=== PATIENT | female | born 1990 | race Caucasian/White ===

== ENCOUNTER 2018-03-09 11:40 | Emergency (ER) | payer MEDICAID, OTHER ==
[~2018-03-09] VITALS: Ht 180.3 cm; Wt 113.4 kg
[2018-03-09] MEDS ORDERED: PREN1.4T2 PO (12:01)
--- NOTE | 2018-03-09 12:21 | ED GU-Female ---
General Chief Complaint: -Female Stated Complaint: LOWER LEFT SIDE PAIN 11 WKS PREG Nursing Triage Note: Pt reports low/pelvic pain since last night. Pt denies urinary s/s. PT denies vaginal bleeding/spotting or abnormal discharge. PT is aprox 11 weeks preg. Nursing Sepsis Screen: No Definite Risk Source: patient, family Exam Limitations: no limitations History of Present Illness Date Seen by Provider: Mar 09, 2018 Time Seen by Provider: 12:14 Initial Comments Patient is a 27-year-old female who presents to the emergency room with complaints left lower abdominal pain/pelvic pain that started last night. She reports taking Tylenol and going to sleep but when she woke this morning the pain returned. She denies vaginal bleeding, spotting, discharge, urinary symptoms, and nausea and vomiting. She states that she is 11 weeks , she saw Dr. Fortune last week for a ten-week appointment. She says that she does have ovarian cyst. Timing/Duration: yesterday Severity/Quality: moderate Location: LLQ, suprapubic Radiation: none Associated Symptoms: abdominal pain; No loss of bladder control, No polyuria, No urinary frequency Allergies and Home Medications Allergies Coded Allergies: acetaminophen (Verified Allergy, Unknown, 03/09/18) diphenhydramine (Verified Allergy, Unknown, 03/09/18) hydrocodone (Verified Allergy, Unknown, 03/09/18) Patient Home Medication List Home Medication List Reviewed: Yes Review of Systems Constitutional: see HPI; No chills, No diaphoresis, No fever EENTM: see HPI; No ear discharge, No hearing loss, No ear pain Respiratory: see HPI; No cough, No dyspnea on exertion, No hemoptysis Cardiovascular: see HPI; No chest pain, No edema Gastrointestinal: see HPI, abdominal pain; No nausea, No vomiting Genitourinary: see HPI; denies burning, denies discharge, denies dysuria; flank pain (left flank); denies incontinence, denies pain, denies urgency Musculoskeletal: see HPI; No back pain, No gout, No joint pain Skin: see HPI; No change in color, No change in hair/nails Psychiatric/Neurological: See HPI; Denies Anxiety, Denies Depressed Endocrine: See HPI; Denies Excessive Sweating, Denies Flushing Hematologic/Lymphatic: Denies Anemia, Denies Blood Clots All Other Systemes Reviewed Negative Unless Noted: Yes Past Uxffhwl-Jmekyt-Unyhnd Hx Past Med/Social Hx: Reviewed Nursing Past Med/Soc Hx Patient Social History Alcohol Use: Denies Use Recreational Drug Use: No Smoking Status: Current Everyday Smoker Type Used: Cigarettes Recent Foreign Travel: No Contact w/Someone Who Travel: No Recent Infectious Disease Expo: No Recent Hopitalizations: No Physical Abuse: No Sexual Abuse: No Mistreated: No Fear: No Seasonal Allergies Seasonal Allergies: No Past Medical History Surgeries: Yes Section Respiratory: Yes Asthma Cardiac: No Neurological: No Genitourinary: No Gastrointestinal: No Musculoskeletal: No Endocrine: No HEENT: No Cancer: No Psychosocial: No Nursing Suicide Risk Score: 0 Integumentary: No Blood Disorders: No Family Medical History Reviewed Nursing Family Hx Physical Exam Vital Signs Vital Signs - First Documented 03/09/18 11:51 Temp 98.9 Pulse 81 Resp 20 B/P (MAP) 126/74 (91) Pulse Ox 98 Capillary Refill : Less Than 3 Seconds Height, Weight, BMI Height: 5'11.00" Weight: 250lbs. oz. 113.686867dm; BMI Method:Stated General Appearance: WD/WN, no apparent distress HEENT: PERRL/EOMI, normal ENT inspection, TMs normal, pharynx normal Neck: non-tender, full range of motion, supple, normal inspection Cardiovascular: regular rate, rhythm, no edema, no gallop, no JVD, no murmur Respiratory: chest non-tender, lungs clear, normal breath sounds, no respiratory distress, no accessory muscle use Gastrointestinal: normal bowel sounds, non tender, soft, no organomegaly, no pulsatile mass Back: normal inspection, no CVA tenderness, no vertebral tenderness Extremities: normal range of motion, non-tender, normal inspection, no pedal edema, no calf tenderness Neurologic/Psychiatric: alert, normal mood/affect, oriented x 3 Skin: normal color, warm/dry Lymphatic: no adenopathy Progress/Results/Core Measures Suspected Sepsis Recent Fever Within 48 Hours: No Infection Criteria Present: None New/Unexplained Altered Menta: No Sepsis Screen: No Definite Risk SIRS Temperature:98.9 Pulse: 81 Respiratory Rate: 20 Blood Pressure 126 /74 Mean: 91 Results/Orders Lab Results My Orders Vital Signs/I&O Capillary Refill : Less Than 3 Seconds Blood Pressure Mean: 91 Diagnostic Imaging Diagonstic Imaging: Ultrasound Comments NAME: TRUDY DOOLEY [facility] REC#: [id number] PT STATUS: REG ER : 1990 PHYSICIAN: SAMUEL TAVAREZ ADMIT DATE: 03/09/18/ER Draft Date of Exam:03/09/18 US OB SINGLE FETUS<14 [id number] PROCEDURE: US OB SINGLE FETUS <14 WKS. TECHNIQUE: Multiple real-time grayscale images were obtained over the gravid uterus in various projections. INDICATION: Pelvic pain. COMPARISON: None available. FINDINGS: The uterus has a gestational sac present which has a normal shape and appearance. An embryo is present with a crown-rump length of 3.7 cm, which corresponds to a gestational age of 10 weeks and 5 days. heart beat is identified at a rate of 169 beats per minute. Left ovary is physiologic in its appearance with a small anechoic follicle measuring 1.7 x 2.1 x 2.1 cm. The right ovary is not seen with certainty. IMPRESSION: 1. Single live intrauterine with a heart rate of 169 beats per minute. 2. No ectopic . Dictated on workstation # [id number] Dict: 03/09/18 1331 Trans: 03/09/18 1345 [id number] Interpreted by: DANY YOUNG MD Electronically signed by: Reviewed: Reviewed by Me Departure Impression Primary Impression: Abdominal pain during in first trimester Disposition: 01 HOME, SELF-CARE Condition: Stable/Unchanged Departure-Patient Inst. Decision time for Depature: 13:35 Referrals: NO,LOCAL PHYSICIAN (PCP) Primary Care Physician SIA FORTUNE DO Patient Instructions: - The Third Month, Smoking and Add. Discharge Instructions: Follow up with Dr. Fortune within 1 week for recheck. Call today for appointment time. Return back to the emergency room for any increased pain, spotting, discharge, vaginal bleeding, fevers, or any other concerns as needed. You may use Tylenol as directed by the bottle. I advised you to stop smoking. All discharge instructions reviewed with patient and/or family. Voiced understanding. Copy Copies To 1: SIA FORTUNE TRAVIS Mar 09, 2018 12:21
[2018-03-09 12:35] LABS: BASOPHILS % (AUTO) 0 % (0-10); EOSINOPHILS # (AUTO) 0.1 10^3/uL (0.0-0.3); EOSINOPHILS % (AUTO) 1 % (0-10); HEMATOCRIT 39 % (35-52); HEMOGLOBIN 13.2 G/DL (11.5-16.0); LYMPHOCYTES # (AUTO) 3.3 X 10^3 (1.0-4.0); LYMPHOCYTES % (AUTO) 35 % (12-44); MEAN CORPUSCULAR HGB CONC 34 G/DL (32-36); MEAN CORPUSCULAR VOLUME 89 FL (80-99); MEAN PLATELET VOLUME 8.9 FL (7.4-10.4); MONOCYTES # (AUTO) 0.8 X 10^3 (0.0-1.0); MONOCYTES % (AUTO) 9 % (0-12); NEUTROPHILS # (AUTO) 5.3 X 10^3 (1.8-7.8); NEUTROPHILS % (AUTO) 55 % (42-75); PLATELET COUNT 292 10^3/uL (130-400); RED BLOOD COUNT 4.33 10^6/uL (4.35-5.85); RED CELL DISTRIBUTION WIDTH 15.7 % (10.0-14.5); WHITE BLOOD COUNT 9.5 10^3/uL (4.3-11.0)
[2018-03-09 12:37] LABS: MEAN CORPUSCULAR HEMOGLOBIN 30 PG (25-34)
[2018-03-09 12:38] LABS: BILIRUBIN,URINE NEGATIVE (NEGATIVE); CLARITY,URINE CLEAR; COLOR,URINE AMBER; GLUCOSE, URINE (UA) NEGATIVE (NEGATIVE); KETONES,URINE NEGATIVE (NEGATIVE); LEUKOCYTE ESTERASE ,URINE 2+ (NEGATIVE); NITRITE,URINE NEGATIVE (NEGATIVE); PH,URINE 6 (5-9); PROTEIN,URINE NEGATIVE (NEGATIVE); UROBILINOGEN,URINE NORMAL (NORMAL)
[2018-03-09 12:45] LABS: BACTERIA,URINE TRACE /HPF; WBC,URINE RARE /HPF
[2018-03-09 12:55] LABS: ALANINE AMINOTRANSFERASE 8 U/L (0-55); ALKALINE PHOSPHATASE 77 U/L (40-136); BILIRUBIN,TOTAL 0.2 MG/DL (0.1-1.0); BUN/CREATININE RATIO 10; CALCIUM 9.3 MG/DL (8.5-10.1); CARBON DIOXIDE 24 MMOL/L (21-32); CHLORIDE 107 MMOL/L (98-107); CREATININE SERUM 0.61 MG/DL (0.60-1.30); GFR ESTIMATED > 60; GLUCOSE 84 MG/DL (70-105); POTASSIUM 3.8 MMOL/L (3.6-5.0); SODIUM 136 MMOL/L (135-145); TOTAL PROTEIN 7.3 GM/DL (6.4-8.2)
--- NOTE | 2018-03-09 13:45 | Diagnostic Imaging Report ---
PROCEDURE: US OB SINGLE FETUS <14 WKS. TECHNIQUE: Multiple real-time grayscale images were obtained over the gravid uterus in various projections. INDICATION: Pelvic pain. COMPARISON: None available. FINDINGS: The uterus has a gestational sac present which has a normal shape and appearance. An embryo is present with a crown-rump length of 3.7 cm, which corresponds to a gestational age of 10 weeks and 5 days. heart beat is identified at a rate of 169 beats per minute. Left ovary is physiologic in its appearance with a small anechoic follicle measuring 1.7 x 2.1 x 2.1 cm. The right ovary is not seen with certainty. IMPRESSION: 1. Single live intrauterine with a heart rate of 169 beats per minute. 2. No ectopic . Dictated by: Dictated on workstation # [id number]
[2018-03-09 13:59] VITALS: BP 124/89
== END 2018-03-09 13:59 | disposition home or self-care (01) ==
LOC: EDUNIT# 11:40 → ER 11:44
DX: O99.89 Other specified diseases and conditions complicating pregnancy, childbirth and the puerperium (principal); R10.32 Left lower quadrant pain; F17.210 Nicotine dependence, cigarettes, uncomplicated; J45.909 Unspecified asthma, uncomplicated; Z88.5 Allergy status to narcotic agent; Z87.59 Personal history of other complications of pregnancy, childbirth and the puerperium; Z3A.11 11 weeks gestation of pregnancy
CPT/HCPCS: 36415; 76801; 80053; 81000; 85025

== ENCOUNTER 2018-04-26 19:38 | Emergency (ER) | payer MEDICAID ==
[~2018-04-26] VITALS: Ht 180.3 cm; Wt 116.1 kg
[~2018-04-26 19:38] MED LIST: PREN1.4T2 PO
--- OUTSIDE RECORDS SUMMARY | 2018-04-26 19:43 | XMS REPORT ---
Author Author TOMMY POLO [facility] Address [address] [place] [address] Care Team Providers Care Environmental Adviser Name Role Phone POLO SANDERS Unavailable PROBLEMS Type Condition ICD9-CM Code MXJ05-DR Code Onset Dates Condition Status SNOMED Code Problem Moderate persistent asthma without complication J45.40 Active 159578434 ALLERGIES Substance Reaction Event Type Date Status [place] headache Drug Allergy Feb, Active Benadryl Allergy hives Drug Allergy Feb, Active ENCOUNTERS Encounter Location Date Diagnosis [place] [id number] [address] Feb, [place] [address] [place] [id number] [place] [address] Feb, [place] [address] [place] [id number] [place] [address] Feb, First trimester Z33.1 ; Normal in multigravida Z34.80 ; 8 weeks gestation of Z3A.08 ; Previous section Z98.891 and Moderate persistent asthma without complication J45.40 [place] [address] [place] [address] Jan, [place] [address] [place] [address] Jan, Encounter for test, result unknown Z32.00 IMMUNIZATIONS No Known Immunizations SOCIAL HISTORY Never Assessed REASON FOR VISIT OB-intake, c/o of headaches that last 2 days Jennifer GOMEZ pt has concerns about previous she would like to discuss PLAN OF CARE Activity Details Follow Up 4W, 4 Weeks Reason: Pending Test PAP REFLEX TO HPV IF ASCUS VITAL SIGNS Weight 262.3 lbs 2018-02-22 Temperature 97.4 degrees Fahrenheit 2018-02-22 Heart Rate 72 bpm 2018-02-22 Respiratory Rate 16 2018-02-22 Blood pressure systolic 118 mmHg 2018-02-22 Blood pressure diastolic 76 mmHg 2018-02-22 MEDICATIONS Medication Instructions Dosage Frequency Start Date End Date Duration Status ProAir HFA 108 (90 Base) MCG/ACT Inhalation every 6 hrs 2 puffs as needed 6h Active Pulmicort Flexhaler 180 MCG/ACT Inhalation Twice a day 1 puff 12h Feb, Active 28-0.8 MG Orally Once a day 1 tablet 24h Active RESULTS No Results PROCEDURES Procedure Date Ordered Result Body Site SPECIMEN HANDLING February 22, 2018 BLOOD TYPING, ABO February 22, 2018 COMPLETE CBC W/AUTO DIFF WBC February 22, 2018 TRICHOMONAS ASSAY W/OPTIC February 22, 2018 No Charge February 22, 2018 BLOOD TYPING, RH (D) February 22, 2018 RBC ANTIBODY SCREEN February 22, 2018 CULTURE, BACTERIA, OTHER February 22, 2018 ASSAY THYROID STIM HORMONE February 22, 2018 URINALYSIS, AUTO, W/O SCOPE February 22, 2018 RUBELLA ANTIBODY February 22, 2018 VENIPUNCT, ROUTINE* February 22, 2018 URINE CULTURE/COLONY COUNT February 22, 2018 INSTRUCTIONS MEDICATIONS ADMINISTERED No Known Medications MEDICAL (GENERAL) HISTORY Type Description Date Medical History /premature high risk Medical History Asthma Medical History Allergies Surgical History 03/03/2015 Hospitalization History see above surgery 2014
--- OUTSIDE RECORDS SUMMARY | 2018-04-26 19:43 | XMS REPORT ---
Author Author GERALDINE SHEEHAN Organization [facility] Address [address] [place] [address] Care Team Providers Care Rn Progressive Care Unit Name Role Phone GERALDINE SHEEHAN Unavailable PROBLEMS Type Condition ICD9-CM Code IZP23-SB Code Onset Dates Condition Status SNOMED Code Problem Moderate persistent asthma without complication J45.40 Active 463207646 ALLERGIES Substance Reaction Event Type Date Status [place] headache Drug Allergy Jan, Active Benadryl Allergy hives Drug Allergy Jan, Active ENCOUNTERS Encounter Location Date Diagnosis [place] [address] [address] Feb, [place] [address] [place] [address] Feb, [place] [address] [address] Feb, First trimester Z33.1 ; Normal in multigravida Z34.80 ; 8 weeks gestation of Z3A.08 ; Previous section Z98.891 and Moderate persistent asthma without complication J45.40 [place] [address] [place] [id number] [address] Jan, [place] [address] [address] Jan, Encounter for test, result unknown Z32.00 IMMUNIZATIONS No Known Immunizations SOCIAL HISTORY Never Assessed REASON FOR VISIT ob/hx PLAN OF CARE VITAL SIGNS MEDICATIONS Unknown Medications RESULTS No Results PROCEDURES No Known procedures INSTRUCTIONS MEDICATIONS ADMINISTERED No Known Medications MEDICAL (GENERAL) HISTORY Type Description Date Medical History /premature high risk Medical History Asthma Medical History Allergies Surgical History 03/03/2015 Hospitalization History see above surgery 2014
--- OUTSIDE RECORDS SUMMARY | 2018-04-26 19:43 | XMS REPORT ---
Author Author GERALDINE SHEEHAN Organization [facility] Address [address] [place] [address] Care Team Providers Care Machine Greaser Name Role Phone GERALDINE SHEEHAN Unavailable PROBLEMS Type Condition ICD9-CM Code PYZ15-NJ Code Onset Dates Condition Status SNOMED Code Problem Moderate persistent asthma without complication J45.40 Active 476461565 ALLERGIES No Information ENCOUNTERS Encounter Location Date Diagnosis [address] [place] [address] Feb, [place] [address] [place] [id number] [place] [address] Feb, [place] [id number] [place] [address] Feb, First trimester Z33.1 ; Normal in multigravida Z34.80 ; 8 weeks gestation of Z3A.08 ; Previous section Z98.891 and Moderate persistent asthma without complication J45.40 [place] [address] [place] [address] Jan, [place] [id number] [place] [phone] Jan, Encounter for test, result unknown Z32.00 IMMUNIZATIONS No Known Immunizations SOCIAL HISTORY Never Assessed REASON FOR VISIT test (walk-in) PLAN OF CARE VITAL SIGNS MEDICATIONS Unknown Medications RESULTS Name Result Date Reference Range TEST, URINE (IN HOUSE) 2018-02-11 RESULTS Positive Lot # [id number] Control + Exp date 09/2018 PROCEDURES Procedure Date Ordered Result Body Site URINE TEST February 11, 2018 INSTRUCTIONS MEDICATIONS ADMINISTERED No Known Medications MEDICAL (GENERAL) HISTORY Type Description Date Medical History /premature high risk Medical History Asthma Medical History Allergies Surgical History 03/03/2015 Hospitalization History see above surgery 2015
--- NOTE | 2018-04-26 20:51 | ED GU-Female ---
General Chief Complaint: -Female Stated Complaint: PEEING BLOOD, 17W Nursing Triage Note: Pt ambulated to rm 3 w/o difficulty. Pt states she was seen at clinic in [place] yesterday and was diagnosed with a UTI. Pt is on Augmentin 500 mg and has taken two doses. Pt states she has had bright red urine three times today. Pt denies pelvic or dysuria today. Pt is 17 weeks . Nursing Sepsis Screen: No Definite Risk Source: patient Exam Limitations: no limitations History of Present Illness Date Seen by Provider: Apr 26, 2018 Time Seen by Provider: 20:30 Initial Comments PT STATES SHE IS 17 WEEKS --LMP 12/23/17 PT STATES SHE OVERDID IT ON THURSDAY AND WAS LIFTING HER SON ALOT AND HAD SOME CRAMPING YESTERDAY SHE WOKE UP AND HAD SOME CRAMPING IN HER PELVIC AND VAGINAL AREA WENT TO CLINIC IN [facility] YESTERDAY FOR THIS PROBLEM AND WAS DX WITH A UTI AND PLACED ON AMOXIL. TODAY SHE HAS BEEN HAVING BLOOD IN HER URINE--STATES IT IS NOT VAGINAL BLEEDING NO PAIN ON URINATION NO PELVIC PAIN OR PAIN ANYWHERE TODAY NO VAGINAL DISCHARGE. NO FEVER HAD SOME NAUSEA YESTERDAY AFTER EATING PIZZA AND DRINKING MILK NO NAUSEA TODAY AND HAS BEEN EATING AND DRINKING FINE OTHERWISE SHE FEELS FINE PT IS AB 0--EMERGENT FOR DISTRESS PCP: NONE JET OPERATOR: DR. FORTUNE--NEXT APPOINTMENT 05/11 Allergies and Home Medications Allergies Coded Allergies: acetaminophen (Verified Allergy, Unknown, 03/09/18) diphenhydramine (Verified Allergy, Unknown, 03/09/18) hydrocodone (Verified Allergy, Unknown, 03/09/18) Patient Home Medication List Home Medication List Reviewed: Yes Review of Systems Review of Systems Constitutional: no symptoms reported Respiratory: no symptoms reported Cardiovascular: no symptoms reported Genitourinary: see HPI : Yes LMP: December 23, 2017 Musculoskeletal: no symptoms reported; No back pain Psychiatric/Neurological: No Symptoms Reported Endocrine: No Symptoms Reported Hematologic/Lymphatic: No Symptoms Reported Past [place]-Hxspcr-Tgsxfl Hx Patient Social History Alcohol Use: Denies Use Recreational Drug Use: No Smoking Status: Current Everyday Smoker (1 1/2 PPD--TRYING TO CUT BACK SINCE BECOMING ) Type Used: Cigarettes 2nd Hand Smoke Exposure: Yes Recent Foreign Travel: No Contact w/Someone Who Travel: No Recent Infectious Disease Expo: No Recent Hopitalizations: No Physical Abuse: No Sexual Abuse: No Seasonal Allergies Seasonal Allergies: No Past Medical History Surgeries: Yes Section Respiratory: Yes Asthma Cardiac: No Neurological: No : Yes Hx : 2 Hx Para: 1 Hx Total # of Abortions (Sp): 0 Reproductive Disorders: No Female Reproductive Disorders: Denies Genitourinary: No Gastrointestinal: No Musculoskeletal: No Endocrine: No HEENT: No Cancer: No Psychosocial: No Nursing Suicide Risk Score: 0 Integumentary: No Blood Disorders: No Physical Exam Vital Signs Vital Signs - First Documented 04/26/18 04/26/18 19:48 21:42 Temp 96.7 Pulse 71 Resp 14 B/P (MAP) 124/78 (93) Pulse Ox 97 O2 Delivery Room Air Capillary Refill : Less Than 3 Seconds Height, Weight, BMI Height: 5'11.00" Weight: 256lbs. oz. 116.087818mm; BMI Method:Stated General Appearance: WD/WN, no apparent distress Neck: normal inspection Cardiovascular: normal peripheral pulses, regular rate, rhythm, no edema, no JVD, no murmur Respiratory: normal breath sounds, no respiratory distress, no accessory muscle use Gastrointestinal: normal bowel sounds, non tender, soft, other (FUNDUS 2 FB'S BELOW UMBILICUS) Pelvic: normal external exam, normal adnexa; No discharge, No vaginal bleeding ; other (CERVIX CLOSED AND HAS NORMAL APPEARANCE. ) Back: normal inspection, no CVA tenderness Extremities: normal inspection, no pedal edema, no calf tenderness, normal capillary refill Neurologic/Psychiatric: library circulation technician II-XII nml as tested, no motor/sensory deficits, alert, normal mood/affect, oriented x 3 Skin: normal color, warm/dry Progress/Results/Core Measures Suspected Sepsis Recent Fever Within 48 Hours: No Infection Criteria Present: None New/Unexplained Altered Menta: No Sepsis Screen: No Definite Risk SIRS Temperature:96.7 Pulse: 71 Respiratory Rate: 14 Blood Pressure 124 /78 Mean: 93 Results/Orders Lab Results Laboratory Tests Test 04/26/18 19:50 Range/Units Urine Color YELLOW Urine Clarity CLEAR Urine pH 6.5 5-9 Urine Specific [place] 1.010 L 1.016-1.022 Urine Protein NEGATIVE NEGATIVE Urine Glucose (UA) NEGATIVE NEGATIVE Urine Ketones NEGATIVE NEGATIVE Urine Nitrite NEGATIVE NEGATIVE Urine Bilirubin NEGATIVE NEGATIVE Urine Urobilinogen NORMAL NORMAL MG/DL Urine Leukocyte Esterase 1+ H NEGATIVE Urine RBC (Auto) NEGATIVE NEGATIVE Urine RBC RARE /HPF Urine WBC 2-5 /HPF Urine Squamous Epithelial Cells 5-10 /HPF Urine Renal Epithelial Cells NONE /HPF Urine Crystals NONE /LPF Urine Bacteria NEGATIVE /HPF Urine Casts NONE /LPF Urine Mucus NEGATIVE /LPF Urine Culture Indicated NO My Orders Orders - NAIN ARMSTRONG DO Straight Cath For Spec.-Adult (04/26/18 20:29) Ua Culture If Indicated (04/26/18 20:29) Heart Tones (04/26/18 20:54) Vital Signs/I&O 04/26/18 21:42 Temp 97.2 Pulse 71 Resp 12 B/P (MAP) 116/60 Pulse Ox 97 O2 Delivery Room Air Capillary Refill : Less Than 3 Seconds Blood Pressure Mean: 93 Progress Note : Progress Note CATH UA SPECIMEN IS WITHOUT BLOOD VAGINAL EXAM IS NORMAL WITH NO EVIDENCE OF BLOOD AND NORMAL CLOSED CERVIX NO ABDOMINAL TENDERNESS FHT'S 150 PT HAS NOT HAD ANY PAIN TODAY IS EATING AND DRINKING NORMALLY NO FEVER NO DYSURIA Departure Impression Primary Impression: REPORTED HEMATURIA Additional Impressions: 17 weeks gestation of Urinary tract infection Disposition: 01 HOME, SELF-CARE Condition: Stable Departure-Patient Inst. Referrals: SIA FORTUNE DO (PCP/Family) Primary Care Physician Patient Instructions: Avoiding Infections in , Blood in the Urine ( Hematuria), Adult (DC), Urinary Tract Infection, Adult (DC) Add. Discharge Instructions: CONTINUE ANTIBIOTICS PRESCRIBED TYLENOL NEEDED FOR PAIN FOLLOW UP WITH DR. FORTUNE THIS WEEK FOR FURTHER CARE All discharge instructions reviewed with patient and/or family. Voiced understanding. NAIN ARMSTRONG DO Apr 26, 2018 20:51
[2018-04-26 20:52] LABS: BILIRUBIN,URINE NEGATIVE (NEGATIVE); CLARITY,URINE CLEAR; COLOR,URINE YELLOW; GLUCOSE, URINE (UA) NEGATIVE (NEGATIVE); KETONES,URINE NEGATIVE (NEGATIVE); LEUKOCYTE ESTERASE ,URINE 1+ (NEGATIVE); NITRITE,URINE NEGATIVE (NEGATIVE); PH,URINE 6.5 (5-9); PROTEIN,URINE NEGATIVE (NEGATIVE); UROBILINOGEN,URINE NORMAL (NORMAL)
[2018-04-26 21:06] LABS: BACTERIA,URINE NEGATIVE /HPF; RBC,URINE RARE /HPF
[2018-04-26 21:42] VITALS: BP 116/60
== END 2018-04-26 21:44 | disposition home or self-care (01) ==
LOC: EDUNIT# 19:38 → ER 19:40
DX: O23.42 Unspecified infection of urinary tract in pregnancy, second trimester (principal); O99.322 Drug use complicating pregnancy, second trimester; F17.210 Nicotine dependence, cigarettes, uncomplicated; O99.512 Diseases of the respiratory system complicating pregnancy, second trimester; J45.909 Unspecified asthma, uncomplicated; O99.89 Other specified diseases and conditions complicating pregnancy, childbirth and the puerperium; R31.9 Hematuria, unspecified; Z88.5 Allergy status to narcotic agent; Z3A.17 17 weeks gestation of pregnancy
CPT/HCPCS: 51701; 81000; 99284

== ENCOUNTER → 2018-05-19 | Outpatient (CLI) | payer MEDICAID ==
--- NOTE | 2018-05-19 16:03 | Diagnostic Imaging Report ---
INDICATION: survey. TECHNIQUE: Multiple real-time grayscale images were obtained over the gravid uterus. COMPARISON: 03/09/2018. FINDINGS: The previous OB ultrasound exam of 03/09/2018 noted a single live intrauterine approximately 10 weeks 5 days gestation +/-1 week. On this exam, the fetus is again visualized. The fetus is in transverse presentation. heart motion was noted and a rate of 136 bpm was recorded. There were no abnormality identified; however, on the four-chamber heart view the images of the posterior fossa and the cisterna magna were not optimal on this study. I would recommend that a short-term (4-6 week) followup exam be performed for further evaluation. The growth parameters are fairly uniform and have progressed as expected since the prior exam. The placenta is along the right fundus and there is no previa. The amniotic fluid volume is within normal limits. IMPRESSION: 1. There is a single live fetus approximately 20 weeks gestation +/-1 week. The EDC remains 09/30/2018. 2. There are no abnormalities identified. However, the four-chamber heart view and the posterior fossa were not well imaged. Recommendations as above. 3. The growth parameters have progressed as expected since the prior study. Dictated by: Dictated on workstation # [id number]
== END ==
LOC: RAD 13:39
PROVIDERS: ATTEND Obstetrics & Gynecology
DX: Z36.89 Encounter for other specified antenatal screening (principal); Z3A.20 20 weeks gestation of pregnancy
CPT/HCPCS: 76805

== ENCOUNTER 2018-08-23 05:23 | Outpatient (CLI) | payer MEDICAID ==
[~2018-08-23] VITALS: Ht 180.3 cm; Wt 117.7 kg
--- OUTSIDE RECORDS SUMMARY | 2018-08-23 05:27 | XMS REPORT ---
Author Author TOMMY POLO Organization [facility] Address [address] [place] [address] Care Team Providers Care Early Childhood Assistant Name Role Phone TOMMYRADHA RODRIGUEZHANY Unavailable PROBLEMS Type Condition ICD9-CM Code FUK26-KE Code Onset Dates Condition Status SNOMED Code Problem Moderate persistent asthma without complication J45.40 Active [id number] ALLERGIES No Information ENCOUNTERS Encounter Location Date Diagnosis [place] [address] [place] [phone] Feb, [place] [address] [place] [address] Feb, [place] [address] [place] [address] Feb, First trimester Z33.1 ; Normal in multigravida Z34.80 ; 8 weeks gestation of Z3A.08 ; Previous section Z98.891 and Moderate persistent asthma without complication J45.40 [place] [address], [place] [address] Jan, [place] [address] [place] [id number] [place] [address] Jan, Encounter for test, result unknown Z32.00 IMMUNIZATIONS No Known Immunizations SOCIAL HISTORY Never Assessed REASON FOR VISIT Presumptive Eligibility PLAN OF CARE VITAL SIGNS MEDICATIONS Unknown Medications RESULTS No Results PROCEDURES No Known procedures INSTRUCTIONS MEDICATIONS ADMINISTERED No Known Medications MEDICAL (GENERAL) HISTORY Type Description Date Medical History /premature high risk Medical History Asthma Medical History Allergies Surgical History 03/03/2015 Hospitalization History see above surgery 2014
--- OUTSIDE RECORDS SUMMARY | 2018-08-23 05:27 | XMS REPORT ---
Author Author TOMMY POLO Organization [facility], [place] Address [address] [place] [address] Care Team Providers Care Financial Adviser Name Role Phone TOMMYRADHA RODRIGUEZHANY Unavailable PROBLEMS Type Condition ICD9-CM Code OPU03-HC Code Onset Dates Condition Status SNOMED Code Problem Moderate persistent asthma without complication J45.40 Active [id number] ALLERGIES No Information ENCOUNTERS Encounter Location Date Diagnosis [place] [id number] [place] [phone] Feb, [place] [id number] [place] [phone] Feb, [place] [id number] [place] [phone] Feb, First trimester Z33.1 ; Normal in multigravida Z34.80 ; 8 weeks gestation of Z3A.08 ; Previous section Z98.891 and Moderate persistent asthma without complication J45.40 [place] [id number] [address] Jan, [place] [address] [address] [place] [id number] [place] [phone] Jan, Encounter for test, result unknown Z32.00 IMMUNIZATIONS No Known Immunizations SOCIAL HISTORY Never Assessed REASON FOR VISIT Service Or Work Dispatcher Hx Updated PLAN OF CARE VITAL SIGNS MEDICATIONS Unknown Medications RESULTS No Results PROCEDURES No Known procedures INSTRUCTIONS MEDICATIONS ADMINISTERED No Known Medications MEDICAL (GENERAL) HISTORY Type Description Date Medical History /premature high risk Medical History Asthma Medical History Allergies Surgical History 03/03/2015 Hospitalization History see above surgery 2014
--- NOTE | 2018-08-23 05:40 | NUR ---
TRUDY DOOLEY presented to unit via AMBULATORY from ED, accompanied by SELF , with c/o LOWER PELVIC CRAMPING/PRESSURE 34 WKS PREG. TRUDY DOOLEY weighed, gowned, voided, and to bed. EFHM and TOCO applied, VS taken. TRUDY DOOLEY oriented to bed controls, call light, TV, heat, and A/C controls.
--- NOTE | 2018-08-23 05:45 | NUR ---
NO PNR AVAILABLE TO REVIEW
--- NOTE | 2018-08-23 05:45 | NUR ---
As this account is being redocumented on r/t registration error, u/a was not reordered on this account. U/A was sent down and ran while pt admitted as clinical at 08/23/18 at 0545. See EMR and lab reports for details.
[2018-08-23 06:00] LABS: BILIRUBIN,URINE NEGATIVE (NEGATIVE); CLARITY,URINE SLIGHTLY CLOUDY; COLOR,URINE AMBER; GLUCOSE, URINE (UA) NEGATIVE (NEGATIVE); KETONES,URINE NEGATIVE (NEGATIVE); LEUKOCYTE ESTERASE ,URINE 2+ (NEGATIVE); NITRITE,URINE POSITIVE (NEGATIVE); PH,URINE 6.5 (5-9); PROTEIN,URINE 1+ (NEGATIVE); UROBILINOGEN,URINE NORMAL (NORMAL)
[2018-08-23 06:11] LABS: BACTERIA,URINE LARGE /HPF
[2018-08-23 06:40] VITALS: BP 112/63
--- NOTE | 2018-08-23 06:50 | NUR ---
Discharge packet given and explained, pt aware to waste picker rx from [facility]. Pt voiced understanding and denies needs. Ambulatory off unit at this time by self.
--- NOTE | 2018-08-23 06:56 | NUR ---
RX of Keflex 500mg QID x7days re-reviewed with Physician and confirmed as correct.
--- NOTE | 2018-08-23 07:10 | NUR ---
Keflex 500mg QID X7 DAYS called to [facility]. Pharmacy location determined per pt request.
--- NOTE | 2018-08-30 08:02 | Physician Query-Final Dx ---
PEGGY AHUJA 08/30/18 0802: Clinic Account Progress/Dx Physician Query: Please give a diagnosis and include the weeks of gestation thank you Date of Service Aug 23, 2018 at 05:23 KIARRA NOVAK DO 09/04/18 1241: Clinic Account Progress/Dx DIAGNOSIS: Diagnosis 34 week IUP UTI contractions PEGGY AHUJA Aug 30, 2018 08:02 KIARRA NOVAK DO Sep 04, 2018 12:41
== END 2018-08-23 06:50 | disposition home or self-care (01) ==
LOC: LDRP 05:23 → UNDOADMIN 05:23 → WSo 05:23 → UNDODISIN 05:43 → WSo 06:50 → EDSTATUS 12:01
PROVIDERS: ATTEND Obstetrics & Gynecology
DX: O47.03 False labor before 37 completed weeks of gestation, third trimester (principal); O23.43 Unspecified infection of urinary tract in pregnancy, third trimester; Z3A.34 34 weeks gestation of pregnancy
CPT/HCPCS: 81000; 87077; 87088; 87186; 99213

== ENCOUNTER 2018-09-15 09:06 | Outpatient (CLI) | payer MEDICAID ==
[~2018-09-15] VITALS: Ht 180.3 cm; Wt 118.0 kg
== END 2018-09-15 10:26 | disposition home or self-care (01) ==
LOC: PREOP 09:06
PROVIDERS: ATTEND Obstetrics & Gynecology
DX: Z01.818 Encounter for other preprocedural examination (principal)
CPT/HCPCS: 87081

== ENCOUNTER 2018-09-21 09:30 | Inpatient (IN) | payer MEDICAID ==
[~2018-09-21] VITALS: Ht 180.3 cm; Wt 117.5 kg
[2018-09-22] MEDS ORDERED: CITRIC ACID/SOB CIT (BICITRA) 30 ML UDC ONE (05:39)
[2018-09-22] MEDS ORDERED: METOCLOPRAMIDE INJ 10 MG/2 ML (REGLAN) ONE (05:39)
[2018-09-22] MEDS ORDERED: LACTATED RINGERS 1,000 ML IV ONE (05:40)
[2018-09-22] MEDS ORDERED: FAMOTIDINE 20MG/2ML IV (PEPCID) ONE (05:40)
[2018-09-22] MEDS ORDERED: ceFAZolin INJECTION 1,000 MG VIAL ONE (05:40)
[2018-09-22] MEDS ORDERED: NS (IVPB) 50 ML ONE (05:41)
--- NOTE | 2018-09-22 06:07 | NUR ---
MIAHTRUDY Saxena presented to unit via AMBULATION from ED, accompanied by SO , with c/o . DOOLEYTRUDY Saxena weighed 259LB, gowned, and to bed. EFHM and TOCO applied, VS taken. MIAHTRUDY Hemanth oriented to bed controls, call light, TV, heat, and A/C controls.
[2018-09-22 06:20] VITALS: BP 112/67
[2018-09-22] MEDS ORDERED: RT-ALBUINH IH ×2 (06:32)
[2018-09-22] MEDS ORDERED: CITRIC ACID/SOB CIT (BICITRA) 30 ML UDC PO ONE (06:45)
[2018-09-22] MEDS ORDERED: ceFAZolin INJECTION 1,000 MG in NS (IVPB) 50 ML IV ONE ×2 (06:45→09:00)
[2018-09-22] MEDS ORDERED: METOCLOPRAMIDE INJ 10 MG/2 ML (REGLAN) IV ONE (06:45)
[2018-09-22] MEDS ORDERED: FAMOTIDINE 20MG/2ML IV (PEPCID) IV ONE (06:45)
[2018-09-22] MEDS: LACTATED RINGERS 1,000 ML IV PRN ×2 (06:50→07:55)
[2018-09-22] MEDS: CATHETER FLUSH 10 ML SYR IV PRN (06:50)
[2018-09-22 07:10] LABS: BASOPHILS % (AUTO) 0 % (0-10); EOSINOPHILS # (AUTO) 0.1 10^3/uL (0.0-0.3); EOSINOPHILS % (AUTO) 1 % (0-10); HEMATOCRIT 34 % (35-52); HEMOGLOBIN 11.7 G/DL (11.5-16.0); LYMPHOCYTES # (AUTO) 1.8 X 10^3 (1.0-4.0); LYMPHOCYTES % (AUTO) 24 % (12-44); MEAN CORPUSCULAR HEMOGLOBIN 32 PG (25-34); MEAN CORPUSCULAR HGB CONC 34 G/DL (32-36); MEAN CORPUSCULAR VOLUME 95 FL (80-99); MEAN PLATELET VOLUME 9.6 FL (7.4-10.4); MONOCYTES # (AUTO) 0.6 X 10^3 (0.0-1.0); MONOCYTES % (AUTO) 8 % (0-12); NEUTROPHILS # (AUTO) 5.3 X 10^3 (1.8-7.8); NEUTROPHILS % (AUTO) 67 % (42-75); PLATELET COUNT 251 10^3/uL (130-400); WHITE BLOOD COUNT 7.8 10^3/uL (4.3-11.0)
[2018-09-22] MEDS ORDERED: PHENYLEPHRINE 100 MCG/ML 10 ML (ANESTHESIA) SYR ONE (07:12)
[2018-09-22] MEDS ORDERED: fentaNYL INJECTION 100 MCG/2 ML AMP ONE (07:12)
--- NOTE | 2018-09-22 07:38 | Progress Note-Pre Operative ---
Pre-Operative Progress Note H&P Reviewed The H&P was reviewed, patient examined and no changes noted. Date Seen by Provider: Sep 22, 2018 Time Seen by Provider: 07:25 Date H&P Reviewed: Sep 22, 2018 Time H&P Reviewed: 07:00 Pre-Operative Diagnosis: previous section SIA FORTUNE DO Sep 22, 2018 07:38
--- NOTE | 2018-09-22 07:41 | NUR ---
Ambulated to OR for repeat by Dr Rea. Father of baby dressed and ready to attend.
[2018-09-22] MEDS ORDERED: OXYTOCIN/NORMAL SALINE 1,000 ML IV ONE (08:39)
--- NOTE | 2018-09-22 08:52 | Cesarean Section Operative ---
Procedure Procedure Note Pre-operative Diagnosis: Shelly Terry is a 28 /Para 2/1 , Gestational Age 39 1/7 weeks with history of previous section Post-operative Diagnosis: same Procedure: Repeat low transverse section Physician: SIA FORTUNE Retail Service Representative: Rachael Rider APRN asst necessary to retract important vascular structures Estimated blood loss: 500 mL Disposition: stable Findings: Viable male , Apgars 8/9, weight 5#12 oz, intact placenta, 3vc, normal appearing uterus, tubes, and ovaries. Indications:Shelly Terry is a 28 /Para 2 /1 ,Gestational Age 39 1/ 7 weeks with history of previous section Patient has a history of asthma. She did her MDI prior to surgery. She has had rhinitis and congestion for a few days prior to presentation today. Has required more usage of her inhaler. Procedure Details: The patient was seen in pre-op and the procedure was discussed with the patient in full, including the risks, benefits, and alternatives. All questions were answered. The patient was taken to the operating room and a time out was performed, verifying patient and procedure. After spinal anesthesia was placed by our anesthesia colleagues, the patient was placed in the dorsal supine with leftward tilt for uterine displacement.~ Her abdomen was then prepped and draped in the typical sterile fashion. She had a 3x4 cm rash below the previous Pfannenstiel incision, so I made the incision about 3 cm superior to this to avoid the candidal infection. A Pfannenstiel skin incision was made using a scalpel and carried down through the underlying fascia. The fascia was incised in the midline and tented up using Lucie clamps. On both the inferior and superior fascia side the rectus muscle was dissected off bluntly and sharply using Peterson scissors. The peritoneum was identified and entered bluntly in the midline. There was separation of the rectus muscles and the preperitoneal fat was protruding through the muscles. These were taken down in blunt and sharp fashion. This was then stretched laterally using manual strength. After entering the abdominal cavity and confirming an omental adhesion (this was taken down after the section) and then a large Gen retractor was placed and the lower uterine segment was visualized. A scalpel was utilized to make a low transverse uterine incision. Amniotomy was performed with an Allis clamp with return of clear fluid. The 's head was grasped and brought to the level of the incision. Fundal pressure was applied and infant was delivered with assistance of the silastic suction without difficulty. Mouth and nares were suctioned with bulb suction. After the umbilical cord was clamped and cut, the infant was handed off to the pediatric staff. A sample of cord blood was then obtained. The placenta was delivered intact via uterine massage. The uterus was cleared of all clots and debris. The uterine incision was closed using 0 Vicryl in a running locked fashion. A second imbricated layer was placed using 0 Vicryl in a running fashion as well. The uterus was flexed forward and the posterior rectouterine space was inspected and cleared of all clots and debris. Again the hysterotomy site was examined and hemostasis was observed. The bilateral tubes and ovaries appeared normal. The abdominal gutters were cleared of all clots and debris. A final check of the uterine incision showed it to be hemostatic. The peritoneum was closed using 3-0 Vicryl in a running fashion. The rectus muscles were brought together in the midline with two figure of eight stitches of 3-0 Vicryl. The fascia was closed with 0 Vicryl in a running fashion. The subcutaneous space was hemostatic, and irrigated. The subcutaneous space was closed with 3-0 Vicryl in several single interrupted stitches. The skin was then closed using 4-0 Monocryl in a running subcuticular fashion. The skin edges were reapproximated together and were hemostatic. A pressure dressing was applied. All sponge, lap and needle counts were correct at the end of the procedure per nursing. Vitals - Labs Vital Signs - I&O Vital Signs Date Time Temp Pulse Resp B/P (MAP) Pulse Ox O2 Delivery O2 Flow Rate FiO2 09/22/18 07:20 Room Air 09/22/18 07:10 78 18 95 Room Air 09/22/18 07:00 Room Air 09/22/18 06:20 97.4 83 18 112/67 (82) Room Air Labs Laboratory Tests 09/22/18 07:00: White Blood Count 7.8, Red Blood Count 3.62L, Hemoglobin 11.7, Hematocrit 34L, Mean Corpuscular Volume 95, Mean Corpuscular Hemoglobin 32, Mean Corpuscular Hemoglobin Concent 34, Red Cell Distribution Width 15.0H, Platelet Count 251, Mean Platelet Volume 9.6, Neutrophils (%) (Auto) 67, Lymphocytes (%) (Auto) 24, Monocytes (%) (Auto) 8, Eosinophils (%) (Auto) 1, Basophils (%) (Auto) 0, Neutrophils # (Auto) 5.3, Lymphocytes # (Auto) 1.8, Monocytes # (Auto) 0.6, Eosinophils # (Auto) 0.1, Basophils # (Auto) 0.0 SIA FORTUNE DO Sep 22, 2018 08:52
[2018-09-22] MEDS ORDERED: OXYTOCIN/NORMAL SALINE 500 ML IV SCH (08:53)
[2018-09-22] MEDS ORDERED: BUPIVACAINE 0.5% 30 ML (SENSORCAINE) VIAL ONE (08:55)
[2018-09-22] MEDS ORDERED: HYDROmorphone 2 MG/ML VIAL (DILAUDID) IV PRN (09:00)
[2018-09-22] MEDS ORDERED: ONDANSETRON 4 MG/2 ML (SDV) Z0FRAN IVP PRN (09:00)
[2018-09-22] MEDS ORDERED: MEASLES,MUMPS,RUBELLA 1 EA INJ SC SCH (09:00)
[2018-09-22] MEDS: DOCUSATE SODIUM 100 MG (COLACE) CAP PO SCH ×2 (09:00→21:02)
[2018-09-22] MEDS ORDERED: TETANUS,DIPTH,PERTUSS P/F (BOOSTRIX) 0.5 ML VIAL IM SCH (09:00)
[2018-09-22] MEDS ORDERED: BISACODYL 10 MG SUPP (DULCOLAX) PR PRN (09:00)
--- NOTE | 2018-09-22 10:20 | NUR ---
PT HAS BEEN IN RECOVERY ROOM. MARTIN D/C'ED WITH 100 CC CAROLYN URINE IN BAG. PERICARE PERFORMED WITH PAD CHANGE. FF U/0. VAG FLOW LT/MOD RUBRA. TURNS FAIRLY WELL WITH ASSISTANCE.
[2018-09-22 10:30] VITALS: BP 117/78
--- NOTE | 2018-09-22 10:35 | NUR ---
TRANSFERRED TO ROOM 307 VIA PT BED IN STABLE CONDITION ACC BY CARLITOS HARRINGTON RN AND MELLISSA NELSON RN. S.O. PUSHING OPEN CRIB WITH . BED TO LOW POSITION. ORIENTED TO SURROUNDINGS, CALL LIGHT OPERATION, ROOM SERVICE PROCEDURE, AND INFORMATION PAPERS WITH STATED UNDERSTANDING. FF U/0. VAG FLOW LT/MOD RUBRA. ABD SOFT. ABD DRSG D/I. DENIES ANY PAIN. CALF SCDS ON BILATERALLY. SIDE RAILS UP X3.
[2018-09-22 11:30] VITALS: BP 131/61
--- NOTE | 2018-09-22 11:30 | NUR ---
DARVIN CARE WITH PAD CHANGE. FF U/1. VAG FLOW LT/MOD RUBRA. TO ROOM TO TALK WITH PT. INSTRUCTED PT TO CALL WHEN NEEDS TO VOID. BREATH SOUNDS CONTINUE TO REVEAL INSP. AND EXP. WHEEZING THROUGHOUT ALL LUNG SINGH. PT BLOWING NOSE WITH CLEAR DRAINAGE WITH SOME FLECKS OF BLOOD NOTED. ENCOURAGED PT TO SPLINT ABDOMEN WHEN COUGHING.
[2018-09-22] MEDS: KETOROLAC 30 MG/ML VIAL IVP SCH ×3 (11:52→17:55)
[2018-09-22] MEDS: ACETAMINOPHEN 500 MG TAB (TYLENOL) PO SCH ×2 (12:05→21:02)
--- NOTE | 2018-09-22 12:30 | NUR ---
UPDATE GIVEN TO DR. FORTUNE REGARDING PT'S WHEEZING. REQUEST MAT PROTOCOL. RT NOTIFIED OF NEED FOR MAT PROTOCOL.
[2018-09-22] MEDS ORDERED: RT-ALBUTEROL SULF 2.5 MG/3 ML PRE-MIX VIAL ONE (13:23)
[2018-09-22] MEDS ORDERED: RT-ALBUTEROL SULF 2.5 MG/3 ML PRE-MIX VIAL INH PRN (13:30)
--- NOTE | 2018-09-22 13:30 | NUR ---
RT HERE TO DO MAT PROTOCOL ON PATIENT AND INSTRUCT ON INCENTIVE SPIROMETRY.
[2018-09-22] MEDS: RT-ALBUTEROL SULF 2.5 MG/3 ML PRE-MIX VIAL INH SCH ×2 (13:34→20:48)
--- NOTE | 2018-09-22 14:00 | NUR ---
TRUDY DOOLEY presented to unit via ambulatory accompanied by friend , with c/o of contractions,repeat scheduled for tomorrow. TRUDY DOOLEY weighed, gowned, voided, and to bed. EFHM and TOCO applied, VS taken. TRUDY DOOLEY oriented to bed controls, call light, TV, heat, and A/C controls. Addendum: 09/22/18 at 1540 by MELLISSA NELSON RN WRONG PATIENT
--- NOTE | 2018-09-22 14:10 | NUR ---
FF U/0. VAG FLOW LT/MOD RUBRA. CARING FOR INFANT IN ROOM. SPOUSE AT BEDSIDE.
--- NOTE | 2018-09-22 15:15 | NUR ---
UP TO THE BATHROOM WITH STANDBY ASSISTANCE. PT MOVING VERY WELL. VOIDED 275CC URINE. PERICARE PERFORMED WITH PAD/UNDERWEAR APPLIED. BACK TO BED WITHOUT PROBLEMS. FF U/1. VAG FLOW LT RUBRA. DENIES NEED FOR PAIN MEDICATION AT THIS TIME. STATES BREATHING TX GIVEN BY RT HELPED "SOME". ENCOURAGED INCENTIVE SPIROMETRY AT LEAST EVERY 2 HOURS. S.O. AND AT BEDSIDE.
[2018-09-22 15:30] VITALS: BP 117/59
--- NOTE | 2018-09-22 16:00 | NUR ---
HAS ASSISTED WITH THROUGHOUT THE SHIFT AND STARTED PT PUMPING BREASTS.
[2018-09-22] MEDS ORDERED: PSEUDOEPHEDRINE HCL 30 MG (SUDAFED) TAB PO PRN (16:15)
[2018-09-22] MEDS: FLUTICASONE NASAL SPRAY (FLONASE) 16 GM BTL NS SCH (17:50)
[2018-09-22] MEDS: LORATADINE (CLARITIN) 10 MG TAB PO SCH (17:51)
[2018-09-22] MEDS: OXYMETAZOLINE (AFRIN) 0.05% NA 15 ML BTL SCH ×2 (17:56→21:03)
[2018-09-22 21:00] VITALS: BP 144/68
[2018-09-22] MEDS: guaiFENesin (MUCINEX) 600 MG TAB PO SCH (21:02)
[2018-09-23 00:40] VITALS: BP 109/67
[2018-09-23] MEDS: KETOROLAC 30 MG/ML VIAL IVP SCH (00:40)
[2018-09-23] MEDS: CATHETER FLUSH 10 ML SYR IV PRN (00:40)
[2018-09-23 05:00] VITALS: BP 111/64
[2018-09-23] MEDS ORDERED: MILK OF MAGNESIA 400 MG/5 ML 30 ML UDC PO PRN (05:00)
[2018-09-23] MEDS: ACETAMINOPHEN 500 MG TAB (TYLENOL) PO SCH ×3 (05:03→21:37)
[2018-09-23 06:10] LABS: BASOPHILS % (AUTO) 0 % (0-10); EOSINOPHILS # (AUTO) 0.1 10^3/uL (0.0-0.3); EOSINOPHILS % (AUTO) 1 % (0-10); HEMATOCRIT 32 % (35-52); HEMOGLOBIN 10.6 G/DL (11.5-16.0); LYMPHOCYTES # (AUTO) 2.5 X 10^3 (1.0-4.0); LYMPHOCYTES % (AUTO) 27 % (12-44); MEAN CORPUSCULAR HEMOGLOBIN 32 PG (25-34); MEAN CORPUSCULAR HGB CONC 34 G/DL (32-36); MEAN CORPUSCULAR VOLUME 96 FL (80-99); MEAN PLATELET VOLUME 9.5 FL (7.4-10.4); MONOCYTES # (AUTO) 0.6 X 10^3 (0.0-1.0); MONOCYTES % (AUTO) 6 % (0-12); NEUTROPHILS # (AUTO) 5.9 X 10^3 (1.8-7.8); NEUTROPHILS % (AUTO) 65 % (42-75); PLATELET COUNT 208 10^3/uL (130-400); RED CELL DISTRIBUTION WIDTH 14.7 % (10.0-14.5); WHITE BLOOD COUNT 9.1 10^3/uL (4.3-11.0)
[2018-09-23] MEDS: RT-ALBUTEROL SULF 2.5 MG/3 ML PRE-MIX VIAL INH SCH ×3 (07:50→21:36)
[2018-09-23 08:15] VITALS: BP 123/61
[2018-09-23] MEDS: DOCUSATE SODIUM 100 MG (COLACE) CAP PO SCH ×2 (08:15→21:37)
[2018-09-23] MEDS: IBUPROFEN 600 MG (MOTRIN) TAB PO SCH ×3 (08:15→21:37)
--- NOTE | 2018-09-23 08:15 | NUR ---
initial shift assessment completed, see interventions for further. abd incision TRACI, Dermabond intact @ site. incision edges well approximated with no sx's of infection noted. FFu/1. scheduled medication given, see eMar for further.
[2018-09-23] MEDS: LORATADINE (CLARITIN) 10 MG TAB PO SCH (08:16)
[2018-09-23] MEDS: FLUTICASONE NASAL SPRAY (FLONASE) 16 GM BTL NS SCH (08:16)
[2018-09-23] MEDS: OXYMETAZOLINE (AFRIN) 0.05% NA 15 ML BTL SCH ×2 (08:16→21:36)
[2018-09-23] MEDS: guaiFENesin (MUCINEX) 600 MG TAB PO SCH ×2 (08:18→21:36)
--- NOTE | 2018-09-23 08:53 | Anesthesia-Regional Post-Op ---
Regional Patient Condition Mental Status: Alert, Oriented x3 Circulation: Same as Pre-Op Headache: Absent Sensation: Full Recovery Motor Block: Absent Post Op Complications Complications None Follow Up Care/Instructions Patient Instructions None needed. Anesthesia/Patient Condition Patient is doing well, no complaints, stable vital signs, no apparent adverse anesthesia problems. No complications reported per nursing. LUIS ENRIQUE LORENZ CRNA Sep 23, 2018 08:53
[2018-09-23] MEDS ORDERED: GUAI600T43 PO ×2 (10:50)
[2018-09-23] MEDS ORDERED: IBUP-844 PO ×2 (10:50)
[2018-09-23] MEDS ORDERED: PSEU30TA35 PO ×2 (10:50)
[2018-09-23] MEDS ORDERED: Oxycodone Hcl PO ×2 (10:50)
--- NOTE | 2018-09-23 10:52 | Discharge Inst-Women's Service ---
Discharge Inst-Women's Serv Depart Medication/Instructions New, Converted or Re-Newed RX: RX on Chart Final Diagnosis repeat section asthma viral upper respiratory infection Consults/Follow Up Additional Follow Up: Yes (1 week for incision check with Rachael and 6 week pp exam with Álvaro) Activity Activity: Activity as Tolerated Driving Instructions: No Driving for 1 Week NO SMOKING: NO SMOKING (very important, no smoking!) Nothing Inside Vagina: No Douching, No [place] (6 weeks), No Tampons Diet Discharge Diet: No Restrictions Symptoms to Report to : Bleeding Excessive, Pain Increased, Fever Over 101 Degrees F, Pain/Pressure in Chest, Heart Beat Irreg/Pounding, Pain/Pressure in Jaw, Vaginal Bleeding Increase, Cramps in Feet or Legs, Vaginal Discharge Foul For Any Problems or Questions: Contact Your Physician Skin/Wound Care Infection Signs and Symptoms: Increased Redness, Foul Odor of Wound, Increased Drainage, Skin Itchy or Has a Rash, Increased Swelling, Temperature Above 101 F Operative Area Clean and Dry: Keep Incision Clean/Dry Stitches/Kersey/Dermabond: Dermabond Bathing Instructions: SIA Aguilar DO Sep 23, 2018 10:52
[2018-09-23 13:54] VITALS: BP 118/73
--- NOTE | 2018-09-23 15:57 | NUR ---
up to shower.
[2018-09-23 16:44] VITALS: BP 136/82
--- NOTE | 2018-09-23 16:44 | NUR ---
called into pt's room with c/o sharp, stabbing pain under right breast. pt breathing shallow, audible wheezing noted by this RN. admits using Albuterol inhaler prior to RN coming into room. vs taken. lungs bilat wheezing, inspiratory & expiratory noted. Addendum: 09/23/18 at 1718 by NEELIMA JUDGE RN warm blanket applied to Rt.side.
--- NOTE | 2018-09-23 16:47 | NUR ---
was called r/t pt's c/o's. vs reviewed. order received for breathing tx now. pt may have abd binder when ambulating in hallway.
--- NOTE | 2018-09-23 16:49 | NUR ---
RT was called r/t breathing tx now. Addendum: 09/23/18 at 1718 by NEELIMA JUDGE RN encourage deep breathing & cont IS tx.
--- NOTE | 2018-09-23 17:30 | NUR ---
Pt sitting up in bed. no sx's of distress noted. reports pain is better after breathing tx.
--- NOTE | 2018-09-23 19:49 | NUR ---
Report given to next shift.
[2018-09-23 21:33] VITALS: BP 126/77
[2018-09-24 03:00] VITALS: BP 143/82
[2018-09-24] MEDS: IBUPROFEN 600 MG (MOTRIN) TAB PO SCH ×2 (03:17→10:48)
[2018-09-24] MEDS: ACETAMINOPHEN 500 MG TAB (TYLENOL) PO SCH ×2 (06:06→10:50)
--- NOTE | 2018-09-24 07:00 | NUR ---
REPORT FROM LINSEY ESPINAL.
--- NOTE | 2018-09-24 08:00 | NUR ---
DR FORTUNE CALLED, UPDATE GIVEN.
--- NOTE | 2018-09-24 08:10 | NUR ---
INITIAL ASSESSMENT COMPLETED, VSS, SEE INTERVENTIONS FOR DETAILED ASSESSMENTS.
--- NOTE | 2018-09-24 08:12 | NUR ---
DR FORTUNE CALLED, NEW ORDERS RECEIVED.
--- NOTE | 2018-09-24 08:27 | Postpartum Progress Note ---
Post Op Post-operative Day #2 s.p rltcs Has been having increase in respiratory symptoms. Last night had acute right upper quadrant pain. wheezing had increased. nebulizer treatment was done and pain improved. Encouraged ambulation and patient had not been out of bed much. Subjective: Patient is without complaints. Ambulating, voiding after casiano removed. Tolerating a regular diet without nausea or vomiting. Normal lochia. Pain is well controlled with oral pain medications. Passing flatus. breast feeding. Objective: 09/23/18 09/23/18 2 21:00 21:33 03:00 Temp 97.4 97.2 Pulse 61 63 Resp 16 16 B/P (MAP) 126/77 (93) 143/82 (102) Pulse Ox 96 O2 Delivery Room Air Room Air Room Air Physical Exam: General - Alert and oriented, no apparent distress Lungs - exp wheezes Abdomen - Soft, appropriately tender to palpation, non-distended, fundus firm at umbilicus Incision - clean, dry and intact; no erythema or induration, no drainage Extremities - no edema, negative Autumn's bilaterally Assessment: 1. post-operative day # 2, status post RLCS. Recovering well, hemodynamically stable 2. Viral respiratory infection 3. asthma Plan: Routine post-operative care. Encourage breast feeding. Encourage ambulation. VTE prophylaxis: SCDs. Ferrous sulfate supplementation. Plan for discharge today Vitals - Labs Vital Signs - I&O Vital Signs Date Time Temp Pulse Resp B/P (MAP) Pulse Ox O2 Delivery O2 Flow Rate FiO2 09/24/18 03:00 97.2 63 16 143/82 (102) Room Air 09/23/18 21:33 97.4 61 16 126/77 (93) 96 Room Air 09/23/18 21:00 Room Air 09/23/18 16:59 94 Room Air 09/23/18 16:44 98.1 73 18 136/82 (100) 95 Room Air 09/23/18 13:54 97.3 77 18 118/73 (88) 95 Room Air SIA FORTUNE DO Sep 24, 2018 08:27
[2018-09-24] MEDS ORDERED: NSTR15C TP ×2 (08:29)
[2018-09-24 08:36] VITALS: BP 139/71
--- NOTE | 2018-09-24 08:43 | Postpartum Progress Note ---
Post Op Late entry. Patient was seen and examined on 09/23/18 11:00 am Post-operative Day #1 s/p RLTCS. She has been complaining of increase in her viral congestion. She has been using her inhaler as prescribed and MAT protocol for nebulizer treatments. Subjective: Patient is without complaints. Ambulating, voiding after casiano removed. Tolerating a regular diet without nausea or vomiting. Normal lochia. Pain is well controlled with oral pain medications. Passing flatus. breast feeding. [] Objective: 98.7 Sat 95% room air 123/78 WBC 9.1 Hgb 10.6 Physical Exam: General - Alert and oriented, no apparent distress Lungs with scattered expiratory wheezes Nasal congestion Abdomen - Soft, appropriately tender to palpation, non-distended, fundus firm at umbilicus Incision - clean, dry and intact; no erythema or induration, no drainage The dermatitis below the incision appears improved today. Extremities - no edema, negative Autumn's bilaterally Assessment: 1. post-operative day # 1, status post RLTCS Recovering well, hemodynamically stable 2. Respiratory viral infection 3. Asthma Plan: Routine post-operative care. Encourage breast feeding. Encourage ambulation. VTE prophylaxis: SCDs. Ferrous sulfate supplementation. Pseudafed, Flonase, oxymetazoline, guaifenesin, Claritin (patient states she has taken this in the past) Plan for discharge tomorrow Vitals - Labs Vital Signs - I&O Vital Signs Date Time Temp Pulse Resp B/P (MAP) Pulse Ox O2 Delivery O2 Flow Rate FiO2 09/24/18 03:00 97.2 63 16 143/82 (102) Room Air 09/23/18 21:33 97.4 61 16 126/77 (93) 96 Room Air 09/23/18 21:00 Room Air 09/23/18 16:59 94 Room Air 09/23/18 16:44 98.1 73 18 136/82 (100) 95 Room Air 09/23/18 13:54 97.3 77 18 118/73 (88) 95 Room Air SIA FORTUNE DO Sep 24, 2018 08:43
[2018-09-24] MEDS ORDERED: FLUT1DIS26 IH ×2 (09:11)
--- NOTE | 2018-09-24 09:33 | Discharge Summary ---
Diagnosis/Chief Complaint Date of Admission Sep 22, 2018 at 06:05 Date of Discharge Discharge Date: Sep 24, 2018 Discharge Summary Hospital Course Labs Laboratory Tests 09/22/18 07:00: Red Blood Count 3.62L, Hematocrit 34L, Red Cell Distribution Width 15.0H 09/23/18 05:30: Red Blood Count 3.28L, Hematocrit 32L, Red Cell Distribution Width 14.7H, Hemoglobin 10.6L Procedures None. Discharge Physical Examination Allergies: Coded Allergies: hydrocodone (Verified Allergy, Intermediate, MIGRAINES, 09/15/18) diphenhydramine (Verified Allergy, Mild, HIVES, 09/15/18) acetaminophen (Verified Adverse Reaction, Intermediate, MIGRAINES, 09/22/18 ) Vitals & I&Os Vital Signs Date Time Temp Pulse Resp B/P (MAP) Pulse Ox O2 Delivery O2 Flow Rate FiO2 09/24/18 08:36 97.9 56 16 139/71 (93) 97 Room Air 09/22/18 13:37 21 Discharge Home Medications Reviewed and agree with Discharge Medication list on patient's Discharge Instruction sheet Instructions to Patient/Family Please see electronic discharge instructions given to patient. Clinical Quality Measures DVT/VTE Risk/Contraindication: Risk Factor Score Per Nursin RFS Level Per Nursing on Admit: 2=Moderate SIA FORTUNE DO Sep 24, 2018 09:33
--- NOTE | 2018-09-24 10:35 | NUR ---
D/C INSTRUCTIONS EXPLAINED, SIGNED, NO QUESTIONS NOTED, PT VERBALIZES UNDERSTANDING OF FOLLOW UP CARE AND INSTRUCTIONS, STERI STRIPS APPLIED TO TWO AREAS ON INCISION THAT DERMABOND WAS REMOVED, FLUFF GAUZE TO INCISION.
[2018-09-24] MEDS: LORATADINE (CLARITIN) 10 MG TAB PO SCH (10:48)
[2018-09-24] MEDS: DOCUSATE SODIUM 100 MG (COLACE) CAP PO SCH (10:48)
[2018-09-24] MEDS: guaiFENesin (MUCINEX) 600 MG TAB PO SCH (10:48)
[2018-09-24] MEDS: OXYMETAZOLINE (AFRIN) 0.05% NA 15 ML BTL SCH (10:48)
[2018-09-24] MEDS: FLUTICASONE NASAL SPRAY (FLONASE) 16 GM BTL NS SCH (10:49)
--- NOTE | 2018-09-24 11:20 | NUR ---
PT DISCHARGED TO HOME, AMBULATED TO PRIVATE CAR WITH STAFF AND S/O AT SIDE NO DISTRESS NOTED, PT TO FOLLOW UP WITH DR SCHEDULED.
== END 2018-09-24 11:20 | disposition home or self-care (01) | DRG 788 ==
LOC: LDRP 09-22 06:05
PROVIDERS: ADMIT Obstetrics & Gynecology; ATTEND Obstetrics & Gynecology
PROC: 10D00Z1 Extraction of Products of Conception, Low, Open Approach (ICD-10-PCS; principal; 2018-09-22 07:40)
DX: O34.211 Maternal care for low transverse scar from previous cesarean delivery (principal); O99.52 Diseases of the respiratory system complicating childbirth; J45.909 Unspecified asthma, uncomplicated; J98.8 Other specified respiratory disorders; O99.334 Smoking (tobacco) complicating childbirth; B97.89 Other viral agents as the cause of diseases classified elsewhere; Z3A.39 39 weeks gestation of pregnancy; Z37.0 Single live birth
CPT/HCPCS: 36415; 85025; 86850; 86900; 86901; 94640; 94664; 94760

== ENCOUNTER 2018-09-25 00:42 | Emergency (ER) | payer MEDICAID ==
[~2018-09-25] VITALS: Ht 180.3 cm; Wt 111.1 kg
[~2018-09-25 00:42] MED LIST changes: +FLUT1DIS26 IH; +GUAI600T43 PO; +IBUP-844 PO; +NSTR15C TP; +Oxycodone Hcl PO; +PSEU30TA35 PO; +RT-ALBUINH IH
--- NOTE | 2018-09-25 01:30 | ED Integumentary General ---
General Chief Complaint: Skin/Wound Problems Stated Complaint: INCISION BLEEDING Nursing Triage Note: SEROSANG. FLUID LEAKING FROM SITE. Allergies and Home Medications Allergies Coded Allergies: hydrocodone (Verified Allergy, Intermediate, MIGRAINES, 09/15/18) diphenhydramine (Verified Allergy, Mild, HIVES, 09/15/18) acetaminophen (Verified Adverse Reaction, Intermediate, MIGRAINES, 09/22/18 ) Home Medications Albuterol Sulfate 1 Puff Puff, 2 PUFF IH Q4H, (Reported) 1 PUFF = 90 MCG Fluticasone/Salmeterol 1 Each Blst.w.dev, 1 EACH IH BID Prescribed by: SIA FORTUNE on 09/24/18 0911 Guaifenesin 600 Mg Tab.er.12h, 600 MG PO BID Prescribed by: SIA FORTUNE on 09/23/18 1050 Ibuprofen 600 Mg Tablet, 600 MG PO Q6H Prescribed by: SIA FORTUNE on 09/23/18 1050 Nystatin/Triamcinolone 15 Gm Cr, 15 GM TP BID apply bid to rash below the incision (do not apply to incision) Prescribed by: SIA FORTUNE on 09/24/18 0829 Pseudoephedrine HCl 30 Mg Tablet, 30 MG PO Q6H PRN for CONGESTION Prescribed by: SIA FORTUNE on 09/23/18 1050 [Oxycodone Hcl] 5 MG TAB, 5 MG PO Q6H PRN for PAIN-SEVERE 1-2 po q 6 hrs prn Prescribed by: SIA FORTUNE on 09/23/18 1050 Past Cptnoir-Eoimcb-Nhuhzk Hx Patient Social History Alcohol Use: Denies Use Recreational Drug Use: No Type Used: Cigarettes 2nd Hand Smoke Exposure: Yes Recent Foreign Travel: No Contact w/Someone Who Travel: No Recent Infectious Disease Expo: No Recent Hopitalizations: Yes () Immunizations Up To Date Tetanus Booster (TDap): Less than 5yrs Date of Influenza Vaccine: May 31, 2018 Seasonal Allergies Seasonal Allergies: Yes Past Medical History Surgeries: Yes Section Respiratory: Yes Asthma Currently Using CPAP: No Currently Using BIPAP: No Cardiac: No Neurological: Yes Headaches /Migraines Reproductive Disorders: No Female Reproductive Disorders: Denies Sexually Transmitted Disease: Yes (HX PID) HIV/AIDS: No Genitourinary: Yes UTI-Chronic Gastrointestinal: Yes Gastroesophageal Reflux Musculoskeletal: No Endocrine: No HEENT: Yes (GLASSES/CONTACTS) Loss of Vision: Bilateral Hearing Impairment: Denies Cancer: No Psychosocial: No Integumentary: Yes Eczema Blood Disorders: No Adverse Reaction/Blood Tranf: No (N/A) Family Medical History Arthritis 19 FATHER Asthma 19 FATHER Cardiovascular disease 19 FATHER Completed stroke 19 FATHER (2 STROKES) Diabetes mellitus 19 FATHER Headache disorder 19 MOTHER Hypercholesterolemia 19 FATHER Hypertension 19 FATHER Myocardial infarction 19 FATHER Respiratory disorder Physical Exam Vital Signs Vital Signs - First Documented 09/25/18 01:14 Temp 97.1 Pulse 73 Resp 18 B/P (MAP) 148/78 (101) Pulse Ox 96 O2 Delivery Room Air Capillary Refill : Less Than 3 Seconds Progress/Results/Core Measures Results/Orders My Orders Orders - NAIN ARMSTRONG DO Wound Dressing-Ed (09/25/18 01:26) Vital Signs/I&O 09/25/18 01:14 Temp 97.1 Pulse 73 Resp 18 B/P (MAP) 148/78 (101) Pulse Ox 96 O2 Delivery Room Air Blood Pressure Mean: 101 Departure Impression Primary Impression: Postoperative bleeding from incision Disposition: 01 HOME, SELF-CARE Condition: Stable Departure-Patient Inst. Referrals: SIA FORTUNE DO (PCP/Family) Primary Care Physician Patient Instructions: Bleeding After Surgery, SECTION DISCHARGE Add. Discharge Instructions: RE-INFORCE AREA WITH MAXI PADS APPLY PRESSURE TO WOUND TO CONTROL BLEEDING APPLY ICE TO WOUND AT 20 MINUTE INTERVALS TO CONTROL BLEEDING CONTINUE ALL POST OP / POST DELIVERY INSTRUCTIONS FOLLOW UP WITH DR. FORTUNE IF SYMPTOMS CONTINUE All discharge instructions reviewed with patient and/or family. Voiced understanding. NAIN ARMSTRONG DO Sep 25, 2018 01:30
[2018-09-25 01:36] VITALS: BP 148/78
== END 2018-09-25 01:36 | disposition home or self-care (01) ==
LOC: EDUNIT# 00:42 → ER 00:46
DX: O90.89 Other complications of the puerperium, not elsewhere classified (principal); O99.53 Diseases of the respiratory system complicating the puerperium; J45.909 Unspecified asthma, uncomplicated; O99.354 Diseases of the nervous system complicating childbirth; G43.909 Migraine, unspecified, not intractable, without status migrainosus; O99.63 Diseases of the digestive system complicating the puerperium; K21.9 Gastro-esophageal reflux disease without esophagitis; Z82.49 Family history of ischemic heart disease and other diseases of the circulatory system; Z87.440 Personal history of urinary (tract) infections; Z88.5 Allergy status to narcotic agent; Z88.8 Allergy status to other drugs, medicaments and biological substances; Z79.51 Long term (current) use of inhaled steroids; Z77.22 Contact with and (suspected) exposure to environmental tobacco smoke (acute) (chronic)
CPT/HCPCS: 99282

== ENCOUNTER → 2018-09-28 | Outpatient (CLI) | payer MEDICAID | LOC: LABNPT 09:25 | PROVIDERS: ATTEND Obstetrics & Gynecology | DX: O12.05 Gestational edema, complicating the puerperium (principal); O90.89 Other complications of the puerperium, not elsewhere classified | CPT/HCPCS: 82570; 84156 ==

== ENCOUNTER → 2018-09-28 | Outpatient (CLI) | payer MEDICAID ==
--- NOTE | 2018-09-28 10:30 | Diagnostic Imaging Report ---
PROCEDURE: US Venous Lower Ext Oz. TECHNIQUE: Multiple real-time grayscale images were obtained over the lower extremities in various projections, bilaterally. Additional duplex Doppler and color Doppler images were also obtained. INDICATION: Edema in the bilateral lower extremities, . COMPARISON: None. FINDINGS: The bilateral common femoral vein, femoral vein, deep femoral vein, and popliteal vein are normal in appearance. These vessels show normal compressibility, color flow and doppler augmentation. The visualized deep calf veins demonstrate no distinct intraluminal thrombus. IMPRESSION: 1. No sonographic evidence of deep venous thrombosis in the bilateral lower extremities. Findings reported to Dr. Rea's nurse by the medical imaging technologist following the examination. Dictated by: Dictated on workstation # [id number]
== END ==
LOC: RAD 09:38
PROVIDERS: ATTEND Obstetrics & Gynecology
DX: O12.05 Gestational edema, complicating the puerperium (principal); Z3A.00 Weeks of gestation of pregnancy not specified
CPT/HCPCS: 93970

== ENCOUNTER 2018-10-01 15:16 | Emergency (ER) | payer MEDICAID ==
[~2018-10-01] VITALS: Ht 180.3 cm; Wt 108.9 kg
--- NOTE | 2018-10-01 15:51 | NUR ---
Original triage was charted on wrong pt. Triage undone by this nurse.
--- NOTE | 2018-10-01 18:29 | ED Integumentary General ---
General Chief Complaint: Skin/Wound Problems Stated Complaint: WOUND CHECK Nursing Triage Note: Ambulatory to triage. Pt reports having a on September 22. Pt c/o extreme pain under both breast bones radiating to incision. Pt reports pain radiated across entire abdomen. Pt called L&D nurses and was told to come to ED. Pt reports pain began at approximately 1200. Pt reports taking an oxycodone at approximately [id number]. Pt reports pain has lessened significantly and reports pain of 4/10. History of Present Illness Date Seen by Provider: Oct 01, 2018 Time Seen by Provider: 18:08 Initial Comments Here with report of pain to the abdominal incision site. She had an episode today that lasted a few minutes and radiated across her abdomen. Overall better now has gone away. She called labor and delivery and explained the situation and they ultimately instructed her to follow-up here for evaluation since her doctor's office was closed. She is supposed to have a doctor's appointment yesterday but it was canceled due to weather. She has appointment set for Thursday. Denies fever or chills. Denies vomiting or diarrhea. Denies significant leakage from the wound. She only had a small drop of leakage from the wound for the last 12 hours. Timing/Duration: this afternoon Severity: moderate Location: torso Possible Cause: other (Postoperative wound) Modifying Factors: improves with other (Rest) Associated Symptoms: No blisters, No change in skin texture, No edema, No fever , No rash Allergies and Home Medications Allergies Coded Allergies: hydrocodone (Verified Allergy, Intermediate, MIGRAINES, 09/15/18) diphenhydramine (Verified Allergy, Mild, HIVES, 09/15/18) acetaminophen (Verified Adverse Reaction, Intermediate, MIGRAINES, 09/22/18 ) Home Medications Albuterol Sulfate 1 Puff Puff, 2 PUFF IH Q4H, (Reported) 1 PUFF = 90 MCG Fluticasone/Salmeterol 1 Each Blst.w.dev, 1 EACH IH BID Prescribed by: SIA FORTUNE on 09/24/18 0911 Guaifenesin 600 Mg Tab.er.12h, 600 MG PO BID Prescribed by: SIA FORTUNE on 09/23/18 1050 Ibuprofen 600 Mg Tablet, 600 MG PO Q6H Prescribed by: SIA FORTUNE on 09/23/18 1050 Nystatin/Triamcinolone 15 Gm Cr, 15 GM TP BID apply bid to rash below the incision (do not apply to incision) Prescribed by: SIA FORTUNE on 09/24/18 0829 Pseudoephedrine HCl 30 Mg Tablet, 30 MG PO Q6H PRN for CONGESTION Prescribed by: SIA FORTUNE on 09/23/18 1050 [Oxycodone Hcl] 5 MG TAB, 5 MG PO Q6H PRN for PAIN-SEVERE 1-2 po q 6 hrs prn Prescribed by: SIA FORTUNE on 09/23/18 1050 Patient Home Medication List Home Medication List Reviewed: Yes Review of Systems Review of Systems Constitutional: see HPI; No chills, No fever Respiratory: no symptoms reported Cardiovascular: no symptoms reported Skin: see HPI; No rash; other (Postoperative wound) Psychiatric/Neurological: No Symptoms Reported Past Lghotzn-Lazhyj-Dvbgrj Hx Past Med/Social Hx: Reviewed Nursing Past Med/Soc Hx Patient Social History Alcohol Use: Denies Use Recreational Drug Use: No Smoking Status: Current Everyday Smoker Type Used: Cigarettes 2nd Hand Smoke Exposure: Yes Recent Foreign Travel: No Contact w/Someone Who Travel: No Recent Infectious Disease Expo: No Recent Hopitalizations: Yes () Immunizations Up To Date Tetanus Booster (TDap): Less than 5yrs Date of Influenza Vaccine: May 31, 2018 Seasonal Allergies Seasonal Allergies: Yes Past Medical History Surgeries: Yes Section Respiratory: Yes Asthma Currently Using CPAP: No Currently Using BIPAP: No Cardiac: No Neurological: Yes Headaches /Migraines Reproductive Disorders: No Female Reproductive Disorders: Denies Sexually Transmitted Disease: Yes (HX PID) HIV/AIDS: No Genitourinary: Yes UTI-Chronic Gastrointestinal: Yes Gastroesophageal Reflux Musculoskeletal: No Endocrine: No HEENT: Yes (GLASSES/CONTACTS) Loss of Vision: Bilateral Hearing Impairment: Denies Cancer: No Psychosocial: No Integumentary: Yes Eczema Blood Disorders: No Adverse Reaction/Blood Tranf: No (N/A) Family Medical History Reviewed Nursing Family Hx Arthritis 19 FATHER Asthma 19 FATHER Cardiovascular disease 19 FATHER Completed stroke 19 FATHER (2 STROKES) Diabetes mellitus 19 FATHER Headache disorder 19 MOTHER Hypercholesterolemia 19 FATHER Hypertension 19 FATHER Myocardial infarction 19 FATHER Respiratory disorder Physical Exam Vital Signs Vital Signs - First Documented 10/01/18 16:50 Temp 98.2 Pulse 82 Resp 19 B/P (MAP) 136/67 (90) Pulse Ox 94 O2 Delivery Room Air Capillary Refill : Less Than 3 Seconds General Appearance: WD/WN, no apparent distress Cardiovascular: regular rate, rhythm, no murmur Respiratory: lungs clear, normal breath sounds Skin: warm/dry, ecchymosis, other (Postoperative surgical wound that is clean, dry and intact) Skin Problem Location: other (Lower abdomen) Skin Problem Character: drainage, rash, other (Can feel area of firmness under the wound that is nontender and follows the surgical line that may be seroma. No significant erythema or swelling otherwise. No significant drainage noted. Wound is closed. There is some surrounding ecchymosis at the patient states is not worse.) Progress/Results/Core Measures Results/Orders Vital Signs/I&O 10/01/18 16:50 Temp 98.2 Pulse 82 Resp 19 B/P (MAP) 136/67 (90) Pulse Ox 94 O2 Delivery Room Air Blood Pressure Mean: 90 Progress Progress Note : Progress Note Seen and evaluated. No concerning findings on evaluation. Patient has follow- up appointment on Thursday. Discharged home with return precautions. Patient verbalize understanding instructions and agreement with plan. Departure Impression Primary Impression: Encounter for postoperative wound check Disposition: HOME, SELF-CARE Condition: Stable Departure-Patient Inst. Decision time for Depature: 18:28 Referrals: SIA FORTUNE DO (PCP/Family) Primary Care Physician Patient Instructions: Wound Care (DC) Add. Discharge Instructions: All discharge instructions reviewed with patient and/or family. Voiced understanding. Continue your current medications. Follow up with your doctor on Thursday as scheduled. Return for worse pain, fever, foul-smelling drainage, increasing redness or other concerns as needed. Copy Copies To 1: SIA FORTUNE TIMOTHY D MD Oct 01, 2018 18:28
[2018-10-01 18:50] VITALS: BP 136/67
== END 2018-10-01 18:50 | disposition home or self-care (01) ==
LOC: EDUNIT# 15:16 → ER 15:18
DX: O90.89 Other complications of the puerperium, not elsewhere classified (principal); G89.18 Other acute postprocedural pain; R10.9 Unspecified abdominal pain; O99.53 Diseases of the respiratory system complicating the puerperium; J45.909 Unspecified asthma, uncomplicated; O99.355 Diseases of the nervous system complicating the puerperium; G43.909 Migraine, unspecified, not intractable, without status migrainosus; O99.63 Diseases of the digestive system complicating the puerperium; K21.9 Gastro-esophageal reflux disease without esophagitis; O99.334 Smoking (tobacco) complicating childbirth; F17.210 Nicotine dependence, cigarettes, uncomplicated; Z87.440 Personal history of urinary (tract) infections; Z82.49 Family history of ischemic heart disease and other diseases of the circulatory system; Z87.448 Personal history of other diseases of urinary system; Z98.890 Other specified postprocedural states; Z88.5 Allergy status to narcotic agent; Z88.8 Allergy status to other drugs, medicaments and biological substances; Z79.51 Long term (current) use of inhaled steroids
CPT/HCPCS: 99282

== ENCOUNTER → 2019-09-27 | Outpatient (CLI) | payer MEDICAID ==
--- NOTE | 2019-09-27 14:59 | Diagnostic Imaging Report ---
HISTORY: Right ankle injury one week ago, with pain. TECHNIQUE: Three views of the right ankle. COMPARISON: None. FINDINGS: The ankle mortise appears symmetric. No acute fracture is seen. Alignment appears normal. No joint effusion is seen. IMPRESSION: 1. No acute osseous abnormality is seen in the right ankle. Dictated by: Dictated on workstation # [id number]
== END ==
LOC: RAD FS 14:30
PROVIDERS: ATTEND Nurse Practitioner Family
DX: S99.911D Unspecified injury of right ankle, subsequent encounter (principal)
CPT/HCPCS: 73610

== ENCOUNTER 2019-10-02 03:30 | Emergency (ER) | payer MEDICAID ==
[~2019-10-02] VITALS: Ht 180.3 cm; Wt 112.7 kg
--- NOTE | 2019-10-02 04:23 | ED GU-Female ---
General Chief Complaint: Abdominal/GI Problems Stated Complaint: LOWER ABDOMINAL PAIN Nursing Triage Note: pt states lower abd/pelvic pain x 24 hrs, pt states it is different from the past uti's she has had Nursing Sepsis Screen: No Definite Risk Source: patient History of Present Illness Date Seen by Provider: Oct 02, 2019 Time Seen by Provider: 03:58 Initial Comments 29 yo F presenting with suprapubic abdominal pain that has been constant since around noon and not gotten any better with tylenol or rest. She denies any vaginal discharge or bleeding. She had her last menstrual period about 2 weeks ago. She is not actively trying to get but she is not doing anything to prevent getting either. She denies pain with urination and no change in stools. She has not had any odor or change in color of her urine either. She denies doing anything to cause the pain and no injury. she has not had pain exactly like this before. She states it woke her from sleep due to the pain. She has had 2 prior C sections but no other surgeries on her abdomen. She last took tylenol around 5 pm or so but it has not helped with her pain. Allergies and Home Medications Allergies Coded Allergies: hydrocodone (Verified Allergy, Intermediate, MIGRAINES, 09/15/18) diphenhydramine (Verified Allergy, Mild, HIVES, 09/15/18) acetaminophen (Verified Adverse Reaction, Intermediate, MIGRAINES, 09/22/18) Home Medications Albuterol Sulfate 1 Puff Puff, 2 PUFF IH Q4H, (Reported) 1 PUFF = 90 MCG Fluticasone/Salmeterol 1 Each Blst.w.dev, 1 EACH IH BID Prescribed by: SIA FORTUNE on 09/24/18 0911 Guaifenesin 600 Mg Tab.er.12h, 600 MG PO BID Prescribed by: SIA FORTUNE on 09/23/18 1050 Ibuprofen 600 Mg Tablet, 600 MG PO Q6H Prescribed by: SIA FORTUNE on 09/23/18 1050 Naproxen 500 Mg Tablet, 500 MG PO Q12H PRN for pain Prescribed by: WILLARD MISHRA on 10/02/19 0503 Nystatin/Triamcinolone 15 Gm Cr, 15 GM TP BID apply bid to rash below the incision (do not apply to incision) Prescribed by: SIA FORTUNE on 09/24/18 0829 Pseudoephedrine HCl 30 Mg Tablet, 30 MG PO Q6H PRN for CONGESTION Prescribed by: SIA FORTUNE on 09/23/18 1050 [Oxycodone Hcl] 5 MG TAB, 5 MG PO Q6H PRN for PAIN-SEVERE 1-2 po q 6 hrs prn Prescribed by: SIA FORTUNE on 09/23/18 1050 Patient Home Medication List Home Medication List Reviewed: Yes Review of Systems Review of Systems Constitutional: No chills, No fever EENTM: no symptoms reported Respiratory: no symptoms reported Cardiovascular: no symptoms reported Gastrointestinal: see HPI Genitourinary: see HPI Musculoskeletal: no symptoms reported Skin: no symptoms reported Psychiatric/Neurological: No Symptoms Reported Past Lfqvihd-Lnijgj-Crfwkm Hx Past Med/Social Hx: Reviewed Nursing Past Med/Soc Hx Patient Social History Alcohol Use: Denies Use Recreational Drug Use: No Smoking Status: Current Everyday Smoker Type Used: Cigarettes 2nd Hand Smoke Exposure: Yes Recent Foreign Travel: No Contact w/Someone Who Travel: No Recent Infectious Disease Expo: No Recent Hopitalizations: Yes () Physical Abuse: No Sexual Abuse: No Mistreated: No Fear: No Immunizations Up To Date Tetanus Booster (TDap): Less than 5yrs Date of Influenza Vaccine: May 31, 2018 Seasonal Allergies Seasonal Allergies: Yes Past Medical History Surgeries: Yes Section Respiratory: Yes Asthma Currently Using CPAP: No Currently Using BIPAP: No Cardiac: No Neurological: Yes Headaches /Migraines Reproductive Disorders: No Female Reproductive Disorders: Denies Sexually Transmitted Disease: Yes (HX PID) HIV/AIDS: No Genitourinary: Yes UTI-Chronic Gastrointestinal: Yes Gastroesophageal Reflux Musculoskeletal: No Endocrine: No HEENT: Yes (GLASSES/CONTACTS) Loss of Vision: Bilateral Hearing Impairment: Denies Cancer: No Psychosocial: No Integumentary: Yes Eczema Blood Disorders: No Adverse Reaction/Blood Tranf: No (N/A) Family Medical History Arthritis 19 FATHER Asthma 19 FATHER Cardiovascular disease 19 FATHER Completed stroke 19 FATHER (2 STROKES) Diabetes mellitus 19 FATHER Headache disorder 19 MOTHER Hypercholesterolemia 19 FATHER Hypertension 19 FATHER Myocardial infarction 19 FATHER Respiratory disorder Physical Exam Vital Signs Vital Signs - First Documented 10/02/19 03:41 Temp 36.8 Pulse 87 Resp 16 B/P (MAP) 126/81 (96) Pulse Ox 98 O2 Delivery Room Air Capillary Refill : Less Than 3 Seconds Height, Weight, BMI Height: 5'11.00" Weight: 240lbs. 0.0oz. 108.622725mm; 34.00 BMI Method:Stated General Appearance: WD/WN, no apparent distress HEENT: PERRL/EOMI, pharynx normal Neck: non-tender, full range of motion, supple, normal inspection Cardiovascular: normal peripheral pulses, regular rate, rhythm Respiratory: chest non-tender, no respiratory distress, rhonchi, wheezing Gastrointestinal: normal bowel sounds, soft, no pulsatile mass; No guarding, No rebound; tenderness (suprapubic) Genital/Rectal: normal vaginal exam Pelvic: normal external exam, normal adnexa, no cerv. motion tender, no masses, other (tender to palpation over suprapubic and uterus but no pain in adnexa and no masses palpated. ) Back: normal inspection, no CVA tenderness Extremities: normal range of motion, non-tender, normal capillary refill Neurologic/Psychiatric: alert, normal mood/affect, oriented x 3 Skin: normal color, warm/dry Progress/Results/Core Measures Suspected Sepsis Recent Fever Within 48 Hours: No Infection Criteria Present: None New/Unexplained Altered Menta: No Sepsis Screen: No Definite Risk SIRS Temperature: Pulse: 87 Respiratory Rate: 16 Laboratory Tests 10/02/19 04:25: White Blood Count 11.1H Blood Pressure 126 /81 Mean: 96 Laboratory Tests 10/02/19 04:25: Creatinine 0.60, Platelet Count 286, Total Bilirubin 0.2 Results/Orders Lab Results Laboratory Tests Test 10/02/19 03:40 10/02/19 04:25 Range/Units Urine Color YELLOW Urine Clarity CLEAR Urine pH 5.5 5-9 Urine Specific [place] 1.025 H 1.016-1.022 Urine Protein NEGATIVE NEGATIVE Urine Glucose (UA) NEGATIVE NEGATIVE Urine Ketones NEGATIVE NEGATIVE Urine Nitrite NEGATIVE NEGATIVE Urine Bilirubin NEGATIVE NEGATIVE Urine Urobilinogen 0.2 < = 1.0 MG/DL Urine Leukocyte Esterase NEGATIVE NEGATIVE Urine RBC (Auto) NEGATIVE NEGATIVE Urine RBC NONE /HPF Urine WBC 0-2 /HPF Urine Squamous Epithelial Cells 5-10 /HPF Urine Crystals NONE /LPF Urine Bacteria NEGATIVE /HPF Urine Casts NONE /LPF Urine Mucus NEGATIVE /LPF Urine Culture Indicated NO Urine Test NEGATIVE NEGATIVE White Blood Count 11.1 H 4.3-11.0 10^3/uL Red Blood Count 4.18 L 4.35-5.85 10^6/uL Hemoglobin 12.9 11.5-16.0 G/DL Hematocrit 38 35-52 % Mean Corpuscular Volume 91 80-99 FL Mean Corpuscular Hemoglobin 31 25-34 PG Mean Corpuscular Hemoglobin Concent 34 32-36 G/DL Red Cell Distribution Width 14.5 10.0-14.5 % Platelet Count 286 130-400 10^3/uL Mean Platelet Volume 9.0 7.4-10.4 FL Neutrophils (%) (Auto) 54 42-75 % Lymphocytes (%) (Auto) 35 12-44 % Monocytes (%) (Auto) 8 0-12 % Eosinophils (%) (Auto) 2 0-10 % Basophils (%) (Auto) 1 0-10 % Neutrophils # (Auto) 6.0 1.8-7.8 X 10^3 Lymphocytes # (Auto) 3.9 1.0-4.0 X 10^3 Monocytes # (Auto) 0.9 0.0-1.0 X 10^3 Eosinophils # (Auto) 0.2 0.0-0.3 10^3/uL Basophils # (Auto) 0.1 0.0-0.1 10^3/uL Sodium Level 135 135-145 MMOL/L Potassium Level 4.0 3.6-5.0 MMOL/L Chloride Level 98 98-107 MMOL/L Carbon Dioxide Level 23 21-32 MMOL/L Anion Gap 14 5-14 MMOL/L Blood Urea Nitrogen 14 7-18 MG/DL Creatinine 0.60 0.60-1.30 MG/DL Estimat Glomerular Filtration Rate > 60 BUN/Creatinine Ratio 23 Glucose Level 97 70-105 MG/DL Calcium Level 9.0 8.5-10.1 MG/DL Corrected Calcium 9.2 8.5-10.1 MG/DL Total Bilirubin 0.2 0.1-1.0 MG/DL Aspartate Amino Transf (AST/SGOT) 13 5-34 U/L Alanine Aminotransferase (ALT/SGPT) 10 0-55 U/L Alkaline Phosphatase 94 40-136 U/L Total Protein 7.0 6.4-8.2 GM/DL Albumin 3.8 3.2-4.5 GM/DL Micro Results Microbiology 10/02/19 Wet Prep - Final, Complete My Orders Orders - WILLARD MISHRA MD Ua Culture If Indicated (10/02/19 03:33) Hcg,Qualitative Urine (10/02/19 03:33) Wet Prep (10/02/19 04:12) Neisseria Gonorrhea Swab (10/02/19 04:12) Chlamydia Trachomatis Swab (10/02/19 04:12) Cbc With Automated Diff (10/02/19 04:12) Comprehensive Metabolic Panel (10/02/19 04:12) Ed Iv/Invasive Line Start (10/02/19 04:12) Ketorolac Injection (Toradol Injection) (10/02/19 04:39) Vital Signs/I&O 10/02/19 03:41 Temp 36.8 Pulse 87 Resp 16 B/P (MAP) 126/81 (96) Pulse Ox 98 O2 Delivery Room Air Capillary Refill : Less Than 3 Seconds Blood Pressure Mean: 96 Progress Note #1: Progress Note check urine and urine . perform pelvic exam and check basic labs. If test negative then give toradol for pain. Progress Note #2: Time: 04:39 Progress Note Pelvic exam did not demonstrate any pain in adnexa and no significant discharge. will try a toradol shot since her urine test was negative. She was starch mangle tender over the suprapubic area but the UA did not demonstrate any abnormality for an infection or reason for her pain. CBC with WBC at upper limit of normal at 11.1. Chemistry and wet mount pending. No CMT on pelvic exam. Progress Note #3: Time: 04:59 Progress Note Wet mount negative and Chemistry negative for acute significant abnormality. Treat with toradol here and nsaids at home. try ice alternate with heat and if this is irritated scar tissue from prior C section then it should improve. If she has something else going on it will worsen and she should return or seek medical care with clinic for ultrasound. Cousneled on follow up and return precautions. Departure Impression Primary Impression: Acute pelvic pain, female Disposition: 01 HOME, SELF-CARE Condition: Stable Departure-Patient Inst. Decision time for Depature: 05:01 Referrals: SIA FORTUNE DO (PCP/Family) Primary Care Physician Patient Instructions: Acute Pelvic Pain (DC) Add. Discharge Instructions: Try Naproxen for the pain and you may alternate with Acetaminophen. You may also try alternating Ice and heat to the area on your abdomen to see if that helps with your pain. If your symptoms continue or worsen then check with clinic or your primary provider about getting an ultrasound to look at the uterus and see if there is another reason for your pain. All discharge instructions reviewed with patient and/or family. Voiced unde rstanding. Scripts Naproxen (Naproxen) 500 Mg Tablet 500 MG PO Q12H PRN for pain for 10 Days, #20 TAB 0 Refills Prov: WILLARD MISHRA MD 10/02/19 WILLARD MISHRA MD Oct 02, 2019 04:23
[2019-10-02 04:25] LABS: BILIRUBIN,URINE NEGATIVE (NEGATIVE); CLARITY,URINE CLEAR; COLOR,URINE YELLOW; GLUCOSE, URINE (UA) NEGATIVE (NEGATIVE); KETONES,URINE NEGATIVE (NEGATIVE); LEUKOCYTE ESTERASE ,URINE NEGATIVE (NEGATIVE); NITRITE,URINE NEGATIVE (NEGATIVE); PH,URINE 5.5 (5-9); PROTEIN,URINE NEGATIVE (NEGATIVE); WBC,URINE 0-2 /HPF
[2019-10-02 04:26] LABS: BACTERIA,URINE NEGATIVE /HPF; HCG,QUALITATIVE URINE NEGATIVE (NEGATIVE)
[2019-10-02 04:34] LABS: BASOPHILS # (AUTO) 0.1 10^3/uL (0.0-0.1); BASOPHILS % (AUTO) 1 % (0-10); EOSINOPHILS # (AUTO) 0.2 10^3/uL (0.0-0.3); EOSINOPHILS % (AUTO) 2 % (0-10); HEMATOCRIT 38 % (35-52); HEMOGLOBIN 12.9 G/DL (11.5-16.0); LYMPHOCYTES # (AUTO) 3.9 X 10^3 (1.0-4.0); LYMPHOCYTES % (AUTO) 35 % (12-44); MEAN CORPUSCULAR HEMOGLOBIN 31 PG (25-34); MEAN CORPUSCULAR HGB CONC 34 G/DL (32-36); MEAN CORPUSCULAR VOLUME 91 FL (80-99); MONOCYTES # (AUTO) 0.9 X 10^3 (0.0-1.0); MONOCYTES % (AUTO) 8 % (0-12); NEUTROPHILS % (AUTO) 54 % (42-75); PLATELET COUNT 286 10^3/uL (130-400); RED CELL DISTRIBUTION WIDTH 14.5 % (10.0-14.5); WHITE BLOOD COUNT 11.1 10^3/uL (4.3-11.0)
[2019-10-02] MEDS ORDERED: KETOROLAC 30 MG/ML VIAL IVP STA (04:39)
[2019-10-02 04:57] LABS: ALANINE AMINOTRANSFERASE 10 U/L (0-55); ALBUMIN 3.8 GM/DL (3.2-4.5); ALKALINE PHOSPHATASE 94 U/L (40-136); BILIRUBIN,TOTAL 0.2 MG/DL (0.1-1.0); BUN/CREATININE RATIO 23; CARBON DIOXIDE 23 MMOL/L (21-32); CHLORIDE 98 MMOL/L (98-107); GFR ESTIMATED > 60; GLUCOSE 97 MG/DL (70-105); SODIUM 135 MMOL/L (135-145)
[2019-10-02] MEDS ORDERED: NAPR-915 PO (05:03)
[2019-10-02 05:08] VITALS: BP 126/81
--- OUTSIDE RECORDS SUMMARY | 2019-10-10 09:05 | XMS REPORT ---
Author Author [facility]ly PENNINGTON [facility] Address [address] [place] [address] Care Team Providers Care Fuel Agent Name Role Phone GORGE OLGA Unavailable PROBLEMS Type Condition ICD9-CM Code TIL07-IM Code Onset Dates Condition S tatus SNOMED Code Problem Moderate persistent asthma without complication J4 5.40 Active 702814574 ALLERGIES Substance Reaction Event Type Date Status [place] headache Drug Allergy Oct, Active Benadryl Allergy hives Drug Allergy Oct, Active ENCOUNTERS Encounter Location Date Diagnosis [facility] [address] [place] [address] Jan, Allergic contact dermatitis due to plant s, except food L23.7 [facility] [address] [id number] [address] [place] [address] [id number] Nov, Caries K02.9 and Dental exam ination Z01.20 [facility] [address] [id number] [address] [place] [phone] Nov, Periodontitis K05.30 [facility] [address] [facility] [place] [address] Oct, Dental abscess K04.7 [facility] [address] [id number] [address] [place] [address] [phone] Sep, Caries K02.9 and Dental exam ination Z01.20 [facility] [address] [id number] [address] [place] [phone] Feb, [facility] [address] [facility] [id number] [address] [place] [phone] Feb, [facility] [address] [facility] [id number] [address] [place] [phone] Feb, First trimester Z3 3.1 ; Normal in multigravida Z34.80 ; 8 weeks gestation of Z3A.08 ; Previous section Z98.891 and Moderate persistent asthma without complication J45.40 [facility] [address] [facility] [id number] [address] [address] Jan, [facility] [address] [facility] [id number] [address] [place] [address] Jan, Encounter for test , result unknown Z32.00 IMMUNIZATIONS No Known Immunizations SOCIAL HISTORY Never Assessed REASON FOR VISIT left jaw, sore throat, Pt stated she is having left jaw pain that moves down int o left side of throat/ no known fever x5 days PLAN OF CARE Activity Details Follow Up prn. if not improving with P CP or reg follow up Reason: VITAL SIGNS Height 70 in 2018-11-08 Weight 242 lbs 2018-11-08 Temperature 97.8 degrees Fahrenheit 2018-11-08 Heart Rate 85 bpm 2018-11-08 Oximetry 98 % 2018-11-08 BMI 34.72 kg/m2 2018-11-08 Blood pressure systolic 136 mmHg 2018-11-08 Blood pressure diastolic 68 mmHg 2018-11-08 MEDICATIONS Medication Instructions Dosage Frequency Start Date End Date Duration S tatus Pulmicort Flexhaler 180 MCG/ACT Inhalation Twice a day 1 puff 12h Feb, Unknown Amoxicillin 875 MG Orally every 12 hrs 1 tablet 12h Oct, 10 day(s) Active Albuterol Active ProAir HFA 108 (90 Base) MCG/ACT Inhalation every 6 hrs 2 puffs as ne eded 6h Active 28-0.8 MG Orally Once a day 1 tablet 24h Unknown RESULTS No Results PROCEDURES No Known procedures INSTRUCTIONS MEDICATIONS ADMINISTERED No Known Medications MEDICAL (GENERAL) HISTORY Type Description Date Medical History /premature high risk pre gnancy Medical History Asthma Medical History Allergies Surgical History 03/03/2015 Surgical History 2019 Hospitalization History see above surgery 2014
--- OUTSIDE RECORDS SUMMARY | 2019-10-10 09:06 | XMS REPORT | Continuity of Care Document ---
Author Organization Unknown Address Unknown Phone Unavailable Allergies Active Description Code Type Severity Reaction Onset Reported/Identified Relationship to Patient Clinical Status Yes hydrocodone [id number] Drug Aller gy Moderate MIGRAINES 09/15/2018 Yes diphenhydramine [id number] D rug Allergy Mild HIVES 09/15/2018 Yes acetaminophen [id number] Gera g Allergy Unknown N/A 09/15/2018 Yes diphenhydramine [id number] D rug Allergy Unknown N/A 09/15/2018 Yes hydrocodone [id number] Drug Aller gy Unknown N/A 09/15/2018 Yes acetaminophen [id number] Gera g Allergy Moderate MIGRAINES 09/22/2018 Medications There is no data. Problems Date Dx Coded Attending Type Code Diagnosis Diagnosed By 03/09/2018 SAMUEL TAVAREZ Ot F17.210 NICOTINE DEPENDENCE, CIGARETTES, UNCOMPL 03/09/2018 SAMUEL TAVAREZ Ot J45.909 UNSPECIFIED ASTHMA, UNCOMPLICATED 03/09/2018 SAMUEL TAVAREZ Ot O99.89 OTH DISEASES AND CONDITIONS COMPL PREG/C 03/09/2018 SAMUEL TAVAREZ Ot R10.32 LEFT LOWER QUADRANT PAIN 03/09/2018 SAMUEL TAVAREZ Ot Z3A.11 11 WEEKS GESTATION OF 03/09/2018 SAMUEL TAVAREZ Ot Z87.59 PERSONAL HISTORY OF COMP OF PREG, CHLDBR 03/09/2018 SAMUEL TAVAREZ Ot Z88.5 ALLERGY STATUS TO NARCOTIC AGENT STATUS 03/11/2018 SAMUEL TAVAREZ Ot F17.210 NICOTINE DEPENDENCE, CIGARETTES, UNCOMPL 03/11/2018 SAMUEL TAVAREZ Ot J45.909 UNSPECIFIED ASTHMA, UNCOMPLICATED 03/11/2018 SAMUEL TAVAREZ Ot O99.89 OTH DISEASES AND CONDITIONS COMPL PREG/C 03/11/2018 SAMUEL TAVAREZ Ot R10.32 LEFT LOWER QUADRANT PAIN 03/11/2018 SAMUEL TAVAREZ Ot Z3A.11 11 WEEKS GESTATION OF 03/11/2018 MADISON TAVAREZIS Ot Z87.59 PERSONAL HISTORY OF COMP OF PREG, CHLDBR 03/11/2018 MARGARETZACKERY SAMUEL Ot Z88.5 ALLERGY STATUS TO NARCOTIC AGENT STATUS 03/15/2018 SAMUEL TAVAREZ Ot F17.210 NICOTINE DEPENDENCE, CIGARETTES, UNCOMPL 03/15/2018 SAMUEL TAVAREZ Ot J45.909 UNSPECIFIED ASTHMA, UNCOMPLICATED 03/15/2018 MARGARETSAMUEL VIZCARRA Ot O99.89 OTH DISEASES AND CONDITIONS COMPL PREG/C 03/15/2018 SAMUEL TAVAREZ Ot R10.32 LEFT LOWER QUADRANT PAIN 03/15/2018 SAMUEL TAVAREZ Ot Z3A.11 11 WEEKS GESTATION OF 03/15/2018 SAMUEL TAVAREZ Ot Z87.59 PERSONAL HISTORY OF COMP OF PREG, CHLDBR 03/15/2018 MARGARETSAMUEL VIZCARRA Ot Z88.5 ALLERGY STATUS TO NARCOTIC AGENT STATUS 04/26/2018 PATTI DO, NAIN K Ot F17.210 NICOTINE DEPENDENCE, CIGARETTES, UNCOMPL 04/26/2018 PATTI DO, NAIN K Ot J45.909 UNSPECIFIED ASTHMA, UNCOMPLICATED 04/26/2018 PATTI DO, NAIN K Ot O23.42 UNSP INFCT OF URINARY TRACT IN 04/26/2018 PATTI DO, NAIN K Ot O99.322 DRUG USE COMPLICATING , SECOND 04/26/2018 PATTI DO, NAIN K Ot O99.512 DISEASES OF THE RESP SYS COMP , 04/26/2018 PATTI DO, NAIN K Ot O99.89 OTH DISEASES AND CONDITIONS COMPL PREG/C 04/26/2018 PATTI DO NAIN K Ot R31.9 HEMATURIA, UNSPECIFIED 04/26/2018 PATTI DO, NAIN K Ot Z3A.17 17 WEEKS GESTATION OF 04/26/2018 PATTI DO, NAIN K Ot Z88.5 ALLERGY STATUS TO NARCOTIC AGENT STATUS 04/28/2018 PATTI DO, NAIN K Ot F17.210 NICOTINE DEPENDENCE, CIGARETTES, UNCOMPL 04/28/2018 PATTI DO, NAIN K Ot J45.909 UNSPECIFIED ASTHMA, UNCOMPLICATED 04/28/2018 PATTI DO, NAIN K Ot O23.42 UNSP INFCT OF URINARY TRACT IN 04/28/2018 PATTI DO, NAIN K Ot O99.322 DRUG USE COMPLICATING , SECOND 04/28/2018 PATTI DO NAIN K Ot O99.512 DISEASES OF THE RESP SYS COMP , 04/28/2018 PATTI KENNEDY GLEASONA K Ot O99.89 OTH DISEASES AND CONDITIONS COMPL PREG/C 04/28/2018 PATTI KENNEDY GLEASONA K Ot R31.9 HEMATURIA, UNSPECIFIED 04/28/2018 PATTI KENNEDY GLEASONA K Ot Z3A.17 17 WEEKS GESTATION OF 04/28/2018 PATTI KENNEDY GLEASONA Bunny Ot Z88.5 ALLERGY STATUS TO NARCOTIC AGENT STATUS 05/20/2018 SIA FORTUNE DO Ot Z36.8 9 ENCOUNTER FOR OTHER SPECIFIED 05/20/2018 SIA FORTUNE DO Ot Z3A.2 0 20 WEEKS GESTATION OF 06/04/2018 FORTUNE SIA GLEASON C Ot Z36.8 9 ENCOUNTER FOR OTHER SPECIFIED 06/04/2018 SIA FORTUNE DO Ot Z3A.2 0 20 WEEKS GESTATION OF 08/23/2018 TASHIACITLALY KIARRA S Ot O23.43 UNSP INFCT OF URINARY TRACT IN 08/23/2018 TASHIAKIARRA BOUCHER DO Ot O47.03 FALSE LABOR BEFORE 37 COMPLETED WEEKS OF 08/23/2018 TASHIAKIARRA BOUCHER DO Ot Z3A.34 34 WEEKS GESTATION OF 08/23/2018 PATTI KENNEDY GLEASONA Bunny Ot F17.210 NICOTINE DEPENDENCE, CIGARETTES, UNCOMPL 08/23/2018 PATTI KENNEDY GLEASONA Bunny Ot J45.909 UNSPECIFIED ASTHMA, UNCOMPLICATED 08/23/2018 PATTI EKNNEDY GLEASONA K Ot O23.42 UNSP INFCT OF URINARY TRACT IN 08/23/2018 PATTI KENNEDY GLEASONA K Ot O99.322 DRUG USE COMPLICATING , SECOND 08/23/2018 PATTI DO NAIN K Ot O99.512 DISEASES OF THE RESP SYS COMP , 08/23/2018 PATTI KENNEDY GLEASONA K Ot O99.89 OTH DISEASES AND CONDITIONS COMPL PREG/C 08/23/2018 PATTI NAIN K Ot R31.9 HEMATURIA, UNSPECIFIED 08/23/2018 PATTI NAIN K Ot Z3A.17 17 WEEKS GESTATION OF 08/23/2018 PATTI NAIN K Ot Z88.5 ALLERGY STATUS TO NARCOTIC AGENT STATUS 08/30/2018 NAIN ARMSTRONG DO Ot F17.210 NICOTINE DEPENDENCE, CIGARETTES, UNCOMPL 08/30/2018 PATTI GLEASON NAIN Bunny Ot J45.909 UNSPECIFIED ASTHMA, UNCOMPLICATED 08/30/2018 NAIN ARMSTRONG DO Ot O23.42 UNSP INFCT OF URINARY TRACT IN 08/30/2018 PATTI GLEASONNAIN Ot O99.322 DRUG USE COMPLICATING , SECOND 08/30/2018 PATTI GLEASONNAIN Ot O99.512 DISEASES OF THE RESP SYS COMP , 08/30/2018 PATTI GLEASONKENNEDYA Bunny Ot O99.89 OTH DISEASES AND CONDITIONS COMPL PREG/C 08/30/2018 PATTI GLEASON NAIN K Ot R31.9 HEMATURIA, UNSPECIFIED 08/30/2018 PATTI GLEASONNAIN Ot Z3A.17 17 WEEKS GESTATION OF 08/30/2018 PATTI NAIN Ot Z88.5 ALLERGY STATUS TO NARCOTIC AGENT STATUS 09/06/2018 KIARRA NOVAK DO Ot O23.43 UNSP INFCT OF URINARY TRACT IN 09/06/2018 KIARRA NOVAK DO Ot O47.03 FALSE LABOR BEFORE 37 COMPLETED WEEKS OF 09/06/2018 KIARRA NOVAK DO Ot Z3A.34 34 WEEKS GESTATION OF 09/24/2018 SIA FORTUNE DO Ot B97.8 9 OTH VIRAL AGENTS THE CAUSE OF DISEASE 09/24/2018 SIA FORTUNE DO Ot J45.9 09 UNSPECIFIED ASTHMA, UNCOMPLICATED 09/24/2018 SIA FORTUNE DO Ot J98.8 OTHER SPECIFIED RESPIRATORY DISORDERS 09/24/2018 SIA FORTUNE DO Ot O34.2 11 MATERN CARE FOR LOW TRANSVERSE SCAR FROM 09/24/2018 SIA FORTUNE DO Ot O99.3 34 SMOKING (TOBACCO) COMPLICATING CHILDBIRT 09/24/2018 SIA FORTUNE DO Ot O99.5 2 DISEASES OF THE RESPIRATORY SYSTEM COMPL 09/24/2018 SIA FORTUNE DO Ot Z37.0 SINGLE LIVE 09/24/2018 SIA FORTUNE DO Ot Z3A.3 9 39 WEEKS GESTATION OF 09/25/2018 NAIN ARMSTRONG DO Ot G43.909 MIGRAINE, UNSP, NOT INTRACTABLE, WITHOUT 09/25/2018 NAIN ARMSTRONG DO Ot J45.909 UNSPECIFIED ASTHMA, UNCOMPLICATED 09/25/2018 NAIN ARMSTRONG DO Ot K21.9 GASTRO-ESOPHAGEAL REFLUX DISEASE WITHOUT 09/25/2018 NAIN ARMSTRONG DO Ot O90.89 OTH COMPLICATIONS OF THE PUERPERIUM, NEC 09/25/2018 NAIN ARMSTRONG DO Ot O99.354 DISEASES OF THE NERVOUS SYSTEM COMPLICAT 09/25/2018 NAIN ARMSTRONG DO Ot O99.53 DISEASES OF THE RESP SYS COMPLICATING TH 09/25/2018 NAIN ARMSTRONG DO Ot O99.63 DISEASES OF THE DIGESTIVE SYSTEM COMPLIC 09/25/2018 NAIN ARMSTRONG DO, Ot Z77.22 CNTCT W AND EXPSR TO ENVIRON TOBACCO SMO 09/25/2018 NAIN ARMSTRONG DO, Ot 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 09/25/2018 NAIN ARMSTRONG DO, Ot Z82.49 FAMILY HX OF ISCHEM HEART DIS AND OTH DI 09/25/2018 NAIN ARMSTRONG DO, Ot Z87.440 PERSONAL HISTORY OF URINARY (TRACT) INFE 09/25/2018 NAIN ARMSTRONG DO, Ot Z88.5 ALLERGY STATUS TO NARCOTIC AGENT STATUS 09/25/2018 NAIN ARMSTRONG DO Ot Z88.8 ALLERGY STATUS TO OTH DRUG/MEDS/BIOL SUB 09/28/2018 NAIN ARMSTRONG DO Ot G43.909 MIGRAINE, UNSP, NOT INTRACTABLE, WITHOUT 09/28/2018 NAIN ARMSTRONG DO Ot J45.909 UNSPECIFIED ASTHMA, UNCOMPLICATED 09/28/2018 NAIN ARMSTRONG DO Ot K21.9 GASTRO-ESOPHAGEAL REFLUX DISEASE WITHOUT 09/28/2018 NAIN ARMSTRONG DO Ot O90.89 OTH COMPLICATIONS OF THE PUERPERIUM, NEC 09/28/2018 NAIN ARMSTRONG DO Ot O99.354 DISEASES OF THE NERVOUS SYSTEM COMPLICAT 09/28/2018 NANI ARMSTRONG DO Ot O99.53 DISEASES OF THE RESP SYS COMPLICATING TH 09/28/2018 NAIN ARMSTRONG DO Ot O99.63 DISEASES OF THE DIGESTIVE SYSTEM COMPLIC 09/28/2018 NAIN ARMSTRONG DO Ot Z77.22 CNTCT W AND EXPSR TO ENVIRON TOBACCO SMO 09/28/2018 NAIN ARMSTRONG DO Ot 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 09/28/2018 NAIN ARMSTRONG DO Ot Z82.49 FAMILY HX OF ISCHEM HEART DIS AND OTH DI 09/28/2018 NAIN ARMSTRONG DO Ot Z87.440 PERSONAL HISTORY OF URINARY (TRACT) INFE 09/28/2018 NAIN ARMSTRONG DO Ot Z88.5 ALLERGY STATUS TO NARCOTIC AGENT STATUS 09/28/2018 NAIN ARMSTRONG DO, Ot Z88.8 ALLERGY STATUS TO OTH DRUG/MEDS/BIOL SUB 09/28/2018 SIA FORTUNE DO Ot O12.0 5 GESTATIONAL EDEMA, COMPLICATING THE PUER 09/28/2018 SIA FORTUNE DO Ot Z3A.0 0 WEEKS OF GESTATION OF NOT SPEC 09/29/2018 SIA FORTUNE DO Ot O12.0 5 GESTATIONAL EDEMA, COMPLICATING THE PUER 09/29/2018 SIA FORTUNE DO Ot O90.8 9 OTH COMPLICATIONS OF THE PUERPERIUM, NEC 10/01/2018 NAIN ARMSTRONG DO Ot G43.909 MIGRAINE, UNSP, NOT INTRACTABLE, WITHOUT 10/01/2018 NAIN ARMSTRONG DO Ot J45.909 UNSPECIFIED ASTHMA, UNCOMPLICATED 10/01/2018 NAIN ARMSTRONG DO Ot K21.9 GASTRO-ESOPHAGEAL REFLUX DISEASE WITHOUT 10/01/2018 NAIN ARMSTRONG DO Ot O90.89 OTH COMPLICATIONS OF THE PUERPERIUM, NEC 10/01/2018 NAIN ARMSTRONG DO Ot O99.354 DISEASES OF THE NERVOUS SYSTEM COMPLICAT 10/01/2018 NAIN ARMSTRONG DO Ot O99.53 DISEASES OF THE RESP SYS COMPLICATING TH 10/01/2018 NAIN ARMSTRONG DO Ot O99.63 DISEASES OF THE DIGESTIVE SYSTEM COMPLIC 10/01/2018 NAIN ARMSTRONG DO Ot Z77.22 CNTCT W AND EXPSR TO ENVIRON TOBACCO SMO 10/01/2018 NAIN ARMSTRONG DO Ot 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 10/01/2018 NAIN ARMSTRONG DO Ot Z82.49 FAMILY HX OF ISCHEM HEART DIS AND OTH DI 10/01/2018 NAIN ARMSTRONG DO Ot Z87.440 PERSONAL HISTORY OF URINARY (TRACT) INFE 10/01/2018 NAIN ARMSTRONG DO Ot Z88.5 ALLERGY STATUS TO NARCOTIC AGENT STATUS 10/01/2018 NAIN ARMSTRONG DO Ot Z88.8 ALLERGY STATUS TO OTH DRUG/MEDS/BIOL SUB 10/01/2018 MAE JASSO MD Ot F17.210 NICOTINE DEPENDENCE, CIGARETTES, UNCOMPL 10/01/2018 MAE JASSO MD Ot G43.909 MIGRAINE, UNSP, NOT INTRACTABLE, WITHOUT 10/01/2018 MAE JASSO MD Ot G89.18 OTHER ACUTE POSTPROCEDURAL PAIN 10/01/2018 MAE JASSO MD Ot J45.909 UNSPECIFIED ASTHMA, UNCOMPLICATED 10/01/2018 MAE JASSO MD Ot K21.9 GASTRO-ESOPHAGEAL REFLUX DISEASE WITHOUT 10/01/2018 MAE JASSO MD Ot O90.89 OTH COMPLICATIONS OF THE PUERPERIUM, NEC 10/01/2018 MAE JASSO MD Ot O99.334 SMOKING (TOBACCO) COMPLICATING CHILDBIRT 10/01/2018 MAE JASSO MD Ot O99.355 DISEASES OF THE NERVOUS SYSTEM COMPLICAT 10/01/2018 MAE JASSO MD Ot O99.53 DISEASES OF THE RESP SYS COMPLICATING TH 10/01/2018 MAE JASSO MD Ot O99.63 DISEASES OF THE DIGESTIVE SYSTEM COMPLIC 10/01/2018 MAE JASSO MD Ot R10.9 UNSPECIFIED ABDOMINAL PAIN 10/01/2018 MAE JASSO MD Ot Z79.51 FDC (CURRENT) USE OF INHALED STERO 10/01/2018 MAE JASSO MD Ot Z82.49 FAMILY HX OF ISCHEM HEART DIS AND OTH DI 10/01/2018 MAE JASSO MD Ot Z87.440 PERSONAL HISTORY OF URINARY (TRACT) INFE 10/01/2018 MAE JASSO MD Ot Z87.448 PERSONAL HISTORY OF OTHER DISEASES OF UR 10/01/2018 MAE JASSO MD Ot Z88.5 ALLERGY STATUS TO NARCOTIC AGENT STATUS 10/01/2018 MAE JASSO MD Ot Z88.8 ALLERGY STATUS TO OTH DRUG/MEDS/BIOL SUB 10/01/2018 MAE JASSO MD Ot Z98.890 OTHER SPECIFIED POSTPROCEDURAL STATES 10/04/2018 MAE JASSO MD Ot F17.210 NICOTINE DEPENDENCE, CIGARETTES, UNCOMPL 10/04/2018 MAE JASSO MD Ot G43.909 MIGRAINE, UNSP, NOT INTRACTABLE, WITHOUT 10/04/2018 MAE JASSO MD Ot G89.18 OTHER ACUTE POSTPROCEDURAL PAIN 10/04/2018 MAE JASSO MD Ot J45.909 UNSPECIFIED ASTHMA, UNCOMPLICATED 10/04/2018 MAE JASSO MD Ot K21.9 GASTRO-ESOPHAGEAL REFLUX DISEASE WITHOUT 10/04/2018 MAE JASSO MD Ot O90.89 OTH COMPLICATIONS OF THE PUERPERIUM, NEC 10/04/2018 MAE JASSO MD Ot O99.334 SMOKING (TOBACCO) COMPLICATING CHILDBIRT 10/04/2018 MAE JASSO MD Ot O99.355 DISEASES OF THE NERVOUS SYSTEM COMPLICAT 10/04/2018 MAE JASSO MD Ot O99.53 DISEASES OF THE RESP SYS COMPLICATING TH 10/04/2018 MAE JASSO MD Ot O99.63 DISEASES OF THE DIGESTIVE SYSTEM COMPLIC 10/04/2018 MAE JASSO MD Ot R10.9 UNSPECIFIED ABDOMINAL PAIN 10/04/2018 MAE JASSO MD Ot 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 10/04/2018 MAE JASSO MD Ot Z82.49 FAMILY HX OF ISCHEM HEART DIS AND OTH DI 10/04/2018 MAE JASSO MD Ot Z87.440 PERSONAL HISTORY OF URINARY (TRACT) INFE 10/04/2018 MAE JASSO MD Ot Z87.448 PERSONAL HISTORY OF OTHER DISEASES OF UR 10/04/2018 MAE JASSO MD, Ot Z88.5 ALLERGY STATUS TO NARCOTIC AGENT STATUS 10/04/2018 MAE JASSO MD Ot Z88.8 ALLERGY STATUS TO OTH DRUG/MEDS/BIOL SUB 10/04/2018 MAE JASSO MD Ot Z98.890 OTHER SPECIFIED POSTPROCEDURAL STATES 10/07/2018 MAE JASSO MD Ot F17.210 NICOTINE DEPENDENCE, CIGARETTES, UNCOMPL 10/07/2018 MAE JASSO MD Ot G43.909 MIGRAINE, UNSP, NOT INTRACTABLE, WITHOUT 10/07/2018 MAE JASSO MD Ot G89.18 OTHER ACUTE POSTPROCEDURAL PAIN 10/07/2018 MAE JASSO MD Ot J45.909 UNSPECIFIED ASTHMA, UNCOMPLICATED 10/07/2018 MAE JASSO MD Ot K21.9 GASTRO-ESOPHAGEAL REFLUX DISEASE WITHOUT 10/07/2018 MAE JASSO MD Ot O90.89 OTH COMPLICATIONS OF THE PUERPERIUM, NEC 10/07/2018 MAE JASSO MD Ot O99.334 SMOKING (TOBACCO) COMPLICATING CHILDBIRT 10/07/2018 MAE JASSO MD Ot O99.355 DISEASES OF THE NERVOUS SYSTEM COMPLICAT 10/07/2018 MAE JASSO MD Ot O99.53 DISEASES OF THE RESP SYS COMPLICATING TH 10/07/2018 MAE JASSO MD Ot O99.63 DISEASES OF THE DIGESTIVE SYSTEM COMPLIC 10/07/2018 MAE JASSO MD Ot R10.9 UNSPECIFIED ABDOMINAL PAIN 10/07/2018 MAE JASSO MD Ot Z79.51 FDC (CURRENT) USE OF INHALED STERO 10/07/2018 MAE JASSO MD Ot Z82.49 FAMILY HX OF ISCHEM HEART DIS AND OTH DI 10/07/2018 MAE JASSO MD Ot Z87.440 PERSONAL HISTORY OF URINARY (TRACT) INFE 10/07/2018 MAE JASSO MD Ot Z87.448 PERSONAL HISTORY OF OTHER DISEASES OF UR 10/07/2018 MAE JASSO MD Ot Z88.5 ALLERGY STATUS TO NARCOTIC AGENT STATUS 10/07/2018 MAE JASSO MD Ot Z88.8 ALLERGY STATUS TO OTH DRUG/MEDS/BIOL SUB 10/07/2018 LOUISA PARISI, MAE Alicia Ot Z98.890 OTHER SPECIFIED POSTPROCEDURAL STATES 10/14/2018 FORTUNE DO, ISA C Ot O12.0 5 GESTATIONAL EDEMA, COMPLICATING THE PUER 10/14/2018 FORTUNE DO, SIA C Ot Z3A.0 0 WEEKS OF GESTATION OF NOT SPEC 10/18/2018 FORTUNE DO, SIA C Ot O12.0 5 GESTATIONAL EDEMA, COMPLICATING THE PUER 10/18/2018 FORTUNE DO, SIA C Ot O90.8 9 OTH COMPLICATIONS OF THE PUERPERIUM, NEC 10/20/2018 FORTUNE DO, SIA C Ot O12.0 5 GESTATIONAL EDEMA, COMPLICATING THE PUER 10/20/2018 FORTUNE DO, SIA C Ot O90.8 9 OTH COMPLICATIONS OF THE PUERPERIUM, NEC 12/11/2018 FORTUNE DO, SIA C Ot O12.0 5 GESTATIONAL EDEMA, COMPLICATING THE PUER 12/11/2018 FORTUNE DO, SIA C Ot O90.8 9 OTH COMPLICATIONS OF THE PUERPERIUM, NEC 12/23/2018 FORTUNE DO, SIA C Ot O12.0 5 GESTATIONAL EDEMA, COMPLICATING THE PUER 12/23/2018 FORTUNE DO, SIA C Ot O90.8 9 OTH COMPLICATIONS OF THE PUERPERIUM, NEC 09/28/2019 OLGA ROE APRN Ot S99.911D UNSPECIFIED INJURY OF RIGHT ANKLE, SUBSE Procedures Code Description Performed By Per formed On [id number] EX TRACTION OF PRODUCTS OF CONCEPTION, 09/22/2018 Results Test Result Range CULTURE, GENITAL - 02/22/18 16:01 CULTURE, GENITAL SEE NOTE NRG SUREPATH PAP RFX HPV mRNA E6/E7 - 16:01 CLINICAL INFORMATION: NRG LMP: NRG PREV. PAP: NORMAL NRG PREV. BX: NRG SOURCE: [employer]ervix NRG STATEMENT OF ADEQUACY: NRG INTERPRETATION/RESULT: NRG [employer] PR[employer] HAND: NRG INFECTION: NRG GENERAL CATEGORIZATION: NRG COMMENT: NRG PATHOLOGIST: NRG COMMENT NRG Complete urinalysis with reflex to cultu re - 03/09/18 12:22 Urine color determination CAROLYN NRG Urine clarity determination CLEAR NR G Urine pH measurement by test strip 6 5-9 Specific gravity of urine by test strip 1.020 1.016-1.022 Urine protein assay by test strip, semi-quantitative NEGATIVE NEGATIVE Urine glucose detection by automated test strip NE GATIVE NEGATIVE Erythrocytes detection in urine sediment by light micr oscopy NEGATIVE NEGATIVE Urine ketones detection by automated test strip NE GATIVE NEGATIVE Urine nitrite detection by test strip NEGATIVE NEGATIVE Urine total bilirubin detection by test strip NEGA TIVE NEGATIVE Urine urobilinogen measurement by automated test strip (mass/volume) NORMAL NORMAL Urine leukocyte esterase detection by dipstick 2+ NEGATIVE Automated urine sediment erythrocyte cou nt by microscopy (number/high power field) NONE NRG Automated urine sediment leukocyte count by microscopy (number/high power field) RARE NRG Bacteria detection in urine sediment by light microsco py TRACE NRG Squamous epithelial cells detection in u rine sediment by light microscopy 2-5 NRG Crystals detection in urine sediment by light microsco py NONE NRG Casts detection in urine sediment by light microscopy NONE NRG Mucus detection in urine sediment by light microscopy SMALL NRG Complete urinalysis with reflex to culture NO NRG Complete blood count (CBC) with automate d white blood cell (WBC) differential - 03/09/18 12:28 Blood leukocytes automated count (number/volume) 9.5 10*3/uL 4.3-11.0 Blood erythrocytes automated count (number/volume) 4.33 10*6/uL 4.35-5.85 Venous blood hemoglobin measurement (mass/volume) 13.2 g/dL 11.5-16.0 Blood hematocrit (volume fraction) 39 % 35-52 Automated erythrocyte mean corpuscular volume 89 [ foz_us] 80-99 Automated erythrocyte mean corpuscular h emoglobin (mass per erythrocyte) 30 pg 25-34 Automated erythrocyte mean corpuscular h emoglobin concentration measurement (mass/volume) 34 g/dL 32-36 Automated erythrocyte distribution width ratio 15. 7 % 10.0- 14.5 Automated blood platelet count (count/volume) 292 10*3/uL 130-400 Automated blood platelet mean volume measurement 8.9 [foz_us] 7.4-10.4 Automated blood neutrophils/100 leukocytes 55 % 42-75 Automated blood lymphocytes/100 leukocytes 35 % 12-44 Blood monocytes/100 leukocytes 9 % 0-12 Automated blood eosinophils/100 leukocytes 1 % 0-10 Automated blood basophils/100 leukocytes 0 % 0-10 Blood neutrophils automated count (number/volume) 5.3 10*3 1.8-7.8 Blood lymphocytes automated count (number/volume) 3.3 10*3 1.0-4.0 Blood monocytes automated count (number/volume) 0. 8 10*3 0.0-1.0 Automated eosinophil count 0.1 10*3/uL 0 .0-0.3 Automated blood basophil count (count/volume) 0.0 10*3/uL 0.0-0.1 Comprehensive metabolic panel - 03/09/18 12:28 Serum or plasma sodium measurement (moles/volume) 136 mmol/L 135-145 Serum or plasma potassium measurement (moles/volume) 3.8 mmol/L 3.6-5.0 Serum or plasma chloride measurement (moles/volume) 107 mmol/L 98-107 Carbon dioxide 24 mmol/L 21-32 Serum or plasma anion gap determination (moles/volume) 5 mmol/L 5-14 Serum or plasma urea nitrogen measurement (mass/volume ) 6 mg/dL 7-18 Serum or plasma creatinine measurement (mass/volume) 0.61 mg/dL 0.60-1.30 Serum or plasma urea nitrogen/creatinine mass ratio 10 NRG Serum or plasma creatinine measurement w ith calculation of estimated glomerular filtration rate > NRG Serum or plasma glucose measurement (mass/volume) 84 mg/dL 70-105 Serum or plasma calcium measurement (mass/volume) 9.3 mg/dL 8.5-10.1 Serum or plasma total bilirubin measurement (mass/volu me) 0.2 mg/dL 0.1-1.0 Serum or plasma alkaline phosphatase maribel surement (enzymatic activity/volume) 77 U/L 40-136 Serum or plasma aspartate aminotransfera se measurement (enzymatic activity/volume) 12 U/L 5-34 Serum or plasma alanine aminotransferase measurement (enzymatic activity/volume) 8 U/L 0-55 Serum or plasma protein measurement (mass/volume) 7.3 g/dL 6.4-8.2 Serum or plasma albumin measurement (mass/volume) 4.0 g/dL 3.2-4.5 Complete urinalysis with reflex to cultu re - 04/26/18 19:50 Urine color determination YELLOW NRG Urine clarity determination CLEAR NR G Urine pH measurement by test strip 6.5 5-9 Specific gravity of urine by test strip 1.010 1.016-1.022 Urine protein assay by test strip, semi-quantitative NEGATIVE NEGATIVE Urine glucose detection by automated test strip NE GATIVE NEGATIVE Erythrocytes detection in urine sediment by light micr oscopy NEGATIVE NEGATIVE Urine ketones detection by automated test strip NE GATIVE NEGATIVE Urine nitrite detection by test strip NEGATIVE NEGATIVE Urine total bilirubin detection by test strip NEGA TIVE NEGATIVE Urine urobilinogen measurement by automated test strip (mass/volume) NORMAL NORMAL Urine leukocyte esterase detection by dipstick 1+ NEGATIVE Automated urine sediment erythrocyte cou nt by microscopy (number/high power field) RARE NRG Automated urine sediment leukocyte count by microscopy (number/high power field) [HPF] NRG Bacteria detection in urine sediment by light microsco py NEGATIVE NRG Squamous epithelial cells detection in u rine sediment by light microscopy 5-10 NRG Crystals detection in urine sediment by light microsco py NONE NRG Casts detection in urine sediment by light microscopy NONE NRG Mucus detection in urine sediment by light microscopy NEGATIVE NRG Complete urinalysis with reflex to culture NO NRG Renal epithelial cells detection in urin e sediment by light microscopy NONE NRG Complete urinalysis with reflex to cultu re - 08/23/18 05:45 Urine color determination CAROLYN NRG Urine clarity determination SLIGHTLY CLOUDY NRG Urine pH measurement by test strip 6.5 5-9 Specific gravity of urine by test strip 1.020 1.016-1.022 Urine protein assay by test strip, semi-quantitative 1+ NEGATIVE Urine glucose detection by automated test strip NE GATIVE NEGATIVE Erythrocytes detection in urine sediment by light micr oscopy NEGATIVE NEGATIVE Urine ketones detection by automated test strip NE GATIVE NEGATIVE Urine nitrite detection by test strip POSITIVE NEGATIVE Urine total bilirubin detection by test strip NEGA TIVE NEGATIVE Urine urobilinogen measurement by automated test strip (mass/volume) NORMAL NORMAL Urine leukocyte esterase detection by dipstick 2+ NEGATIVE Automated urine sediment erythrocyte cou nt by microscopy (number/high power field) NONE NRG Automated urine sediment leukocyte count by microscopy (number/high power field) [HPF] NRG Bacteria detection in urine sediment by light microsco py LARGE NRG Squamous epithelial cells detection in u rine sediment by light microscopy 2-5 NRG Crystals detection in urine sediment by light microsco py NONE NRG Casts detection in urine sediment by light microscopy NONE NRG Mucus detection in urine sediment by light microscopy NEGATIVE NRG Complete urinalysis with reflex to culture YES NRG Bacterial urine culture - 08/23/18 05:45 Bacterial urine culture [id number] NRG COLONY COUNT >100,000/ML NRG FTX;REPORTABLE SUSCEPTIBILITY REPORTED 08-26-, 110 5. NRG FREE TEXT ENTRY 3 RML SENT ID REPORT 08/25 16:05 NRG RML Sensitivity Panel - 08/23/18 05:45 Gentamicin susceptibility test by minimum inhibitory c oncentration <= NRG Trimethoprim/sulfamethoxazole susceptibi lity test by minimum inhibitoryconcentration <= NRG Levofloxacin susceptibility test by minimum inhibitory concentration <= NRG Ampicillin susceptibility test by minimum inhibitory c oncentration <= NRG Cefazolin susceptibility test by minimum inhibitory co ncentration <= NRG Ceftriaxone susceptibility test by minimum inhibitory concentration <= NRG Ciprofloxacin susceptibility test by minimum inhibitor y concentration <= NRG Meropenem susceptibility test by minimum inhibitory co ncentration <= NRG Nitrofurantoin susceptibility test by mi nimum inhibitory concentration <= NRG Amoxicillin and clavulanate potassium susc VONDA <= NRG Methicillin resistant Staphylococcus aur eus (MRSA) screening culture - 09/15/18 09:30 Methicillin resistant Staphylococcus aureus (MRSA) scr eening culture NEG NRG Complete blood count (CBC) with automate d white blood cell (WBC) differential - 09/22/18 07:00 Blood leukocytes automated count (number/volume) 7.8 10*3/uL 4.3-11.0 Blood erythrocytes automated count (number/volume) 3.62 10*6/uL 4.35-5.85 Venous blood hemoglobin measurement (mass/volume) 11.7 g/dL 11.5-16.0 Blood hematocrit (volume fraction) 34 % 35-52 Automated erythrocyte mean corpuscular volume 95 [ foz_us] 80-99 Automated erythrocyte mean corpuscular h emoglobin (mass per erythrocyte) 32 pg 25-34 Automated erythrocyte mean corpuscular h emoglobin concentration measurement (mass/volume) 34 g/dL 32-36 Automated erythrocyte distribution width ratio 15. 0 % 10.0- 14.5 Automated blood platelet count (count/volume) 251 10*3/uL 130-400 Automated blood platelet mean volume measurement 9.6 [foz_us] 7.4-10.4 Automated blood neutrophils/100 leukocytes 67 % 42-75 Automated blood lymphocytes/100 leukocytes 24 % 12-44 Blood monocytes/100 leukocytes 8 % 0-12 Automated blood eosinophils/100 leukocytes 1 % 0-10 Automated blood basophils/100 leukocytes 0 % 0-10 Blood neutrophils automated count (number/volume) 5.3 10*3 1.8-7.8 Blood lymphocytes automated count (number/volume) 1.8 10*3 1.0-4.0 Blood monocytes automated count (number/volume) 0. 6 10*3 0.0-1.0 Automated eosinophil count 0.1 10*3/uL 0 .0-0.3 Automated blood basophil count (count/volume) 0.0 10*3/uL 0.0-0.1 Blood type T Indirect antibody screen pa lavell - 09/22/18 07:00 ABO+Rh group OP NRG Transfusion band number [id number] NRG Blood group antibody screen NEGATIVE NR G Complete blood count (CBC) with automate d white blood cell (WBC) differential - 09/23/18 05:30 Blood leukocytes automated count (number/volume) 9.1 10*3/uL 4.3-11.0 Blood erythrocytes automated count (number/volume) 3.28 10*6/uL 4.35-5.85 Venous blood hemoglobin measurement (mass/volume) 10.6 g/dL 11.5-16.0 Blood hematocrit (volume fraction) 32 % 35-52 Automated erythrocyte mean corpuscular volume 96 [ foz_us] 80-99 Automated erythrocyte mean corpuscular h emoglobin (mass per erythrocyte) 32 pg 25-34 Automated erythrocyte mean corpuscular h emoglobin concentration measurement (mass/volume) 34 g/dL 32-36 Automated erythrocyte distribution width ratio 14. 7 % 10.0- 14.5 Automated blood platelet count (count/volume) 208 10*3/uL 130-400 Automated blood platelet mean volume measurement 9.5 [foz_us] 7.4-10.4 Automated blood neutrophils/100 leukocytes 65 % 42-75 Automated blood lymphocytes/100 leukocytes 27 % 12-44 Blood monocytes/100 leukocytes 6 % 0-12 Automated blood eosinophils/100 leukocytes 1 % 0-10 Automated blood basophils/100 leukocytes 0 % 0-10 Blood neutrophils automated count (number/volume) 5.9 10*3 1.8-7.8 Blood lymphocytes automated count (number/volume) 2.5 10*3 1.0-4.0 Blood monocytes automated count (number/volume) 0. 6 10*3 0.0-1.0 Automated eosinophil count 0.1 10*3/uL 0 .0-0.3 Automated blood basophil count (count/volume) 0.0 10*3/uL 0.0-0.1 Urine protein/creatinine mass ratio - 09:25 Urine protein measurement (mass/volume) 20 mg/dL 6-12 Urine creatinine measurement (mass/volume) 38 mg/d L 30-125 Urine protein/creatinine mass ratio 0.53 NRG Complete urinalysis with reflex to cultu re - 10/02/19 03:40 Urine color determination YELLOW NRG Urine clarity determination CLEAR NR G Urine pH measurement by test strip 5.5 5-9 Specific gravity of urine by test strip 1.025 1.016-1.022 Urine protein assay by test strip, semi-quantitative NEGATIVE NEGATIVE Urine glucose detection by automated test strip NE GATIVE NEGATIVE Erythrocytes detection in urine sediment by light micr oscopy NEGATIVE NEGATIVE Urine ketones detection by automated test strip NE GATIVE NEGATIVE Urine nitrite detection by test strip NEGATIVE NEGATIVE Urine total bilirubin detection by test strip NEGA TIVE NEGATIVE Urine urobilinogen measurement by automated test strip (mass/volume) 0.2 mg/dL < = 1.0 Urine leukocyte esterase detection by dipstick NEG ATIVE NEGATIVE Automated urine sediment erythrocyte cou nt by microscopy (number/high power field) NONE NRG Automated urine sediment leukocyte count by microscopy (number/high power field) [HPF] NRG Bacteria detection in urine sediment by light microsco py NEGATIVE NRG Squamous epithelial cells detection in u rine sediment by light microscopy 5-10 NRG Crystals detection in urine sediment by light microsco py NONE NRG Casts detection in urine sediment by light microscopy NONE NRG Mucus detection in urine sediment by light microscopy NEGATIVE NRG Complete urinalysis with reflex to culture NO NRG Urine beta human chorionic gonadotropin (hCG) measurement - 10/02/19 03:40 Urine beta human chorionic gonadotropin (hCG) measurem ent NEGATIVE NEGATIVE Chlamydia trachomatis DNA detection by p robe and signal amplification method - 10/02/19 03:40 Chlamydia trachomatis DNA detection by p robe and target amplification method Not Detected Not Detected Neisseria gonorrhoeae DNA detection by p robe and signal amplification method - 10/02/19 03:40 Gonorrhea amp DNA-urine Not Detected No t Detected Complete blood count (CBC) with automate d white blood cell (WBC) differential - 10/02/19 04:25 Blood leukocytes automated count (number/volume) 11.1 10*3/uL 4.3-11.0 Blood erythrocytes automated count (number/volume) 4.18 10*6/uL 4.35-5.85 Venous blood hemoglobin measurement (mass/volume) 12.9 g/dL 11.5-16.0 Blood hematocrit (volume fraction) 38 % 35-52 Automated erythrocyte mean corpuscular volume 91 [ foz_us] 80-99 Automated erythrocyte mean corpuscular h emoglobin (mass per erythrocyte) 31 pg 25-34 Automated erythrocyte mean corpuscular h emoglobin concentration measurement (mass/volume) 34 g/dL 32-36 Automated erythrocyte distribution width ratio 14. 5 % 10.0- 14.5 Automated blood platelet count (count/volume) 286 10*3/uL 130-400 Automated blood platelet mean volume measurement 9.0 [foz_us] 7.4-10.4 Automated blood neutrophils/100 leukocytes 54 % 42-75 Automated blood lymphocytes/100 leukocytes 35 % 12-44 Blood monocytes/100 leukocytes 8 % 0-12 Automated blood eosinophils/100 leukocytes 2 % 0-10 Automated blood basophils/100 leukocytes 1 % 0-10 Blood neutrophils automated count (number/volume) 6.0 10*3 1.8-7.8 Blood lymphocytes automated count (number/volume) 3.9 10*3 1.0-4.0 Blood monocytes automated count (number/volume) 0. 9 10*3 0.0-1.0 Automated eosinophil count 0.2 10*3/uL 0 .0-0.3 Automated blood basophil count (count/volume) 0.1 10*3/uL 0.0-0.1 Comprehensive metabolic panel - 10/02/19 04:25 Serum or plasma sodium measurement (moles/volume) 135 mmol/L 135-145 Serum or plasma potassium measurement (moles/volume) 4.0 mmol/L 3.6-5.0 Serum or plasma chloride measurement (moles/volume) 98 mmol/L 98-107 Carbon dioxide 23 mmol/L 21-32 Serum or plasma anion gap determination (moles/volume) 14 mmol/L 5-14 Serum or plasma urea nitrogen measurement (mass/volume ) 14 mg/dL 7-18 Serum or plasma creatinine measurement (mass/volume) 0.60 mg/dL 0.60-1.30 Serum or plasma urea nitrogen/creatinine mass ratio 23 NRG Serum or plasma creatinine measurement w ith calculation of estimated glomerular filtration rate > NRG Serum or plasma glucose measurement (mass/volume) 97 mg/dL 70-105 Serum or plasma calcium measurement (mass/volume) 9.0 mg/dL 8.5-10.1 Serum or plasma total bilirubin measurement (mass/volu me) 0.2 mg/dL 0.1-1.0 Serum or plasma alkaline phosphatase maribel surement (enzymatic activity/volume) 94 U/L 40-136 Serum or plasma aspartate aminotransfera se measurement (enzymatic activity/volume) 13 U/L 5-34 Serum or plasma alanine aminotransferase measurement (enzymatic activity/volume) 10 U/L 0-55 Serum or plasma protein measurement (mass/volume) 7.0 g/dL 6.4-8.2 Serum or plasma albumin measurement (mass/volume) 3.8 g/dL 3.2-4.5 CALCIUM CORRECTED 9.2 mg/dL 8.5-10.1 Microscopic examination by wet preparati on 10/02/19 04:35 WET PREP RESULTS NO CLUE CELLS OBSERVED NRG Encounters ACCT No. Visit Date/Time Discharge Status Pt. Type Provider Facility Loc./Unit Complaint [id number] 09/27/2019 14:20:00 09/27/2019 23:59: 59 CLS Outpatient RODY BORJAS [facility] [id number] 02/22/2018 14:00:00 Document Registration [id number] 10/02/2019 03:34:00 020 05:08:00 DIS Emergency WILLARD MISHRA MD [facility] ER FS LOWER ABDOMINAL PAIN [id number] 09/27/2019 14:30:00 020 23:59:59 CLS Outpatient OLGA ROE APRN [facility] RAD FS [id number] 10/01/2018 15:18:00 019 18:50:00 DIS Emergency MAE JASSO MD [facility] ER WOUND CHECK [id number] 09/28/2018 09:38:00 019 23:59:59 CLS Outpatient SIA FORTUNE DO [facility] RAD EDEMA [id number] 09/28/2018 09:25:00 23:59:59 CLS Outpatient SIA FORTUNE DO [facility] LABNPT [id number] 09/25/2018 00:46:00 01:36:00 DIS Emergency NAIN ARMSTRONG DO [facility] ER INCISION BLEE DING [id number] 09/22/2018 06:05:00 11:20:00 DIS Inpatient SIA FORTUNE DO [facility] LDRP [id number] 09/15/2018 09:06:00 019 10:26:00 DIS Outpatient SIA FORTUNE DO [facility] PREOP [id number] 08/23/2018 05:23:00 018 06:50:00 DIS Outpatient KIARRA NOVAK DO [facility] WSo LOWER PELVIC CRAMPING/ PRESSURE 34 WKS PREG [id number] 05/19/2018 13:39:00 018 23:59:59 CLS Outpatient SIA FORTUNE DO [facility] RAD 20 WKS GESTATION OF PRE GNANCY [id number] 04/26/2018 19:41:00 018 21:44:00 DIS Outpatient NAIN ARMSTRONG DO [facility] ER PEEING BLOOD, 17W [id number] 03/09/2018 11:44:00 018 13:59:00 DIS Emergency SAMUEL TAVAREZ [facility] ER LOWER LEFT SIDE PAIN 11 WKS PREG
== END 2019-10-02 05:08 | disposition home or self-care (01) ==
LOC: EDUNIT# 03:30 → ER FS 03:34
DX: R10.2 Pelvic and perineal pain (principal); J45.909 Unspecified asthma, uncomplicated; K21.9 Gastro-esophageal reflux disease without esophagitis; F17.210 Nicotine dependence, cigarettes, uncomplicated; Z79.51 Long term (current) use of inhaled steroids; Z88.5 Allergy status to narcotic agent; Z88.6 Allergy status to analgesic agent; Z88.8 Allergy status to other drugs, medicaments and biological substances; Z82.49 Family history of ischemic heart disease and other diseases of the circulatory system
CPT/HCPCS: 36415; 80053; 81000; 84703; 85025; 87210; 87491; 87591; 96374; 99282

== ENCOUNTER → 2020-03-20 | Outpatient (CLI) | payer MEDICAID ==
[~2020-03-20] MED LIST changes: +NAPR-915 PO
--- NOTE | 2020-03-20 16:47 | Diagnostic Imaging Report ---
INDICATION: Left ankle pain. TECHNIQUE: AP, oblique, and lateral views of the left ankle were obtained. FINDINGS: No fracture or acute bony abnormality is seen. The joint spaces are unremarkable. IMPRESSION: Negative left ankle. Dictated by: Dictated on workstation # [id number]
== END ==
LOC: RAD FS 16:07
PROVIDERS: ATTEND Nurse Practitioner Family
DX: S99.912D Unspecified injury of left ankle, subsequent encounter (principal); X58.XXXA Exposure to other specified factors, initial encounter
CPT/HCPCS: 73610

== ENCOUNTER 2020-05-10 02:14 | Emergency (ER) | payer MEDICAID ==
[~2020-05-10] VITALS: Ht 180.3 cm; Wt 113.5 kg
[2020-05-10] MEDS ORDERED: METOCLOPRAMIDE INJ 10 MG/2 ML (REGLAN) IVP STA (02:36)
[2020-05-10] MEDS ORDERED: KETOROLAC 30 MG/ML VIAL IVP STA (02:36)
[2020-05-10] MEDS ORDERED: NS IV 1000 ML 1,000 ML IV STA (02:36)
--- NOTE | 2020-05-10 02:44 | ED Headache ---
General Chief Complaint: Head/Cervical Problems Stated Complaint: MIGRAINE Nursing Triage Note: PT AMBULATE TO ROOM FS02 WITH C/O MIGRAIN STARTING LAST NIGHT. PT REPORTS HX OF MIGRAINES. PT REPORTS TAKING EXCEDRIN AND IMOTREX WITHOUT RELIEF. Nursing Sepsis Screen: No Definite Risk Source: patient History of Present Illness Date Seen by Provider: May 10, 2020 Time Seen by Provider: 02:24 Initial Comments 29 yo female presenting with complaints of migraine headache. She reports it is in frontal area of her head. She feels it is in her normal area of her head where she gets migraines but this one is more severe than usual and was not improving with Imitrex or Excedrin Migraine. She denies fever or chills. She has no neck pain. She does have asthma and has wheezing. She denies any head trauma. She has phonophobia and photophobia. This migraine started Thursday evening for her Allergies and Home Medications Allergies Coded Allergies: hydrocodone (Verified Allergy, Intermediate, MIGRAINES, 09/15/18) diphenhydramine (Verified Allergy, Mild, HIVES, 09/15/18) acetaminophen (Verified Adverse Reaction, Intermediate, MIGRAINES, 09/22/18) Home Medications Albuterol Sulfate 1 Puff Puff, 2 PUFF IH Q4H, (Reported) 1 PUFF = 90 MCG Fluticasone/Salmeterol 1 Each Blst.w.dev, 1 EACH IH BID Prescribed by: SIA FORTUNE on 09/24/18 0911 Guaifenesin 600 Mg Tab.er.12h, 600 MG PO BID Prescribed by: SIA FORTUNE on 09/23/18 1050 Ibuprofen 600 Mg Tablet, 600 MG PO Q6H Prescribed by: SIA FORTUNE on 09/23/18 1050 Naproxen 500 Mg Tablet, 500 MG PO Q12H PRN for pain Prescribed by: WILLARD MISHRA on 10/02/19 0503 Nystatin/Triamcinolone 15 Gm Cr, 15 GM TP BID apply bid to rash below the incision (do not apply to incision) Prescribed by: SIA FORTUNE on 09/24/18 0829 Pseudoephedrine HCl 30 Mg Tablet, 30 MG PO Q6H PRN for CONGESTION Prescribed by: SIA FORTUNE on 09/23/18 1050 [Oxycodone Hcl] 5 MG TAB, 5 MG PO Q6H PRN for PAIN-SEVERE 1-2 po q 6 hrs prn Prescribed by: SIA FORTUNE on 09/23/18 1050 Patient Home Medication List Home Medication List Reviewed: Yes Review of Systems Review of Systems Constitutional: No chills, No dizziness, No fever Eyes: Denies Blurred Vision; Photophobia Ears, Nose, Mouth, Throat: denies epistaxis, denies throat pain Respiratory: cough, wheezing Cardiovascular: No chest pain Gastrointestinal: nausea, vomiting Genitourinary: No dysuria Musculoskeletal: no symptoms reported Skin: no symptoms reported Psychiatric/Neurological: See HPI Past Xwcvrst-Okcosw-Ykzblx Hx Past Med/Social Hx: Reviewed Nursing Past Med/Soc Hx Patient Social History Alcohol Use: Denies Use Recreational Drug Use: No Smoking Status: Current Everyday Smoker Type Used: Cigarettes 2nd Hand Smoke Exposure: Yes Recent Foreign Travel: No Contact w/Someone Who Travel: No Recent Infectious Disease Expo: No Recent Hopitalizations: Yes () Physical Abuse: No Sexual Abuse: No Mistreated: No Fear: No Immunizations Up To Date Tetanus Booster (TDap): Less than 5yrs Date of Influenza Vaccine: May 31, 2018 Seasonal Allergies Seasonal Allergies: Yes Past Medical History Surgeries: Yes Section Respiratory: Yes Asthma Currently Using CPAP: No Currently Using BIPAP: No Cardiac: No Neurological: Yes Headaches /Migraines Reproductive Disorders: No Female Reproductive Disorders: Denies Sexually Transmitted Disease: Yes (HX PID) HIV/AIDS: No Genitourinary: Yes UTI-Chronic Gastrointestinal: Yes Gastroesophageal Reflux Musculoskeletal: No Endocrine: No HEENT: Yes (GLASSES/CONTACTS) Loss of Vision: Bilateral Hearing Impairment: Denies Cancer: No Psychosocial: No Integumentary: Yes Eczema Blood Disorders: No Adverse Reaction/Blood Tranf: No (N/A) Family Medical History Arthritis 19 FATHER Asthma 19 FATHER Cardiovascular disease 19 FATHER Completed stroke 19 FATHER (2 STROKES) Diabetes mellitus 19 FATHER Headache disorder 19 MOTHER Hypercholesterolemia 19 FATHER Hypertension 19 FATHER Myocardial infarction 19 FATHER Respiratory disorder Physical Exam Vital Signs Vital Signs - First Documented 05/10/20 02:22 Temp 35.5 Pulse 81 Resp 17 B/P (MAP) 116/77 (90) O2 Delivery Room Air Capillary Refill : Less Than 3 Seconds Height, Weight, BMI Height: 5'11.00" Weight: 240lbs. 0.0oz. 108.182031ao; 34.00 BMI Method:Stated General Appearance: WD/WN, no apparent distress HEENT: PERRL/EOMI, normal ENT inspection, pharynx normal Neck: non-tender, full range of motion, supple, normal inspection Cardiovascular: normal peripheral pulses, regular rate, rhythm Respiratory: chest non-tender, no respiratory distress, no accessory muscle use, decreased breath sounds, wheezing Extremities: normal range of motion, non-tender, no pedal edema, normal capillary refill Psychiatric: alert, oriented x 3 Crainal Nerves: normal hearing, normal speech, PERRL Skin: normal color, warm/dry Progress/Results/Core Measures Results/Orders My Orders Orders - WILLARD MISHRA MD Ed Iv/Invasive Line Start (05/10/20 02:36) Dexamethasone Injection (Decadron Inje (05/10/20 02:36) Ketorolac Injection (Toradol Injection) (05/10/20 02:36) Metoclopramide Injection (Reglan Injecti (05/10/20 02:36) Ns Iv 1000 Ml (Sodium Chloride 0.9%) (05/10/20 02:36) Vital Signs/I&O 05/10/20 02:22 Temp 35.5 Pulse 81 Resp 17 B/P (MAP) 116/77 (90) O2 Delivery Room Air Blood Pressure Mean: 90 Progress Progress Note #1: Progress Note try treating with IVF, Toradol, Decadron, Reglan. Progress Note #2: Progress Note On recheck pt reports her migraine headache pain is down to 1 or 2 out of 10. will discharge to home. Counseled to rest in cool dark room. Continue on home meds. Follow up with clinic for continued concerns. Departure Impression Primary Impression: Migraine headache without aura Qualified Codes: G43.009 - Migraine without aura, not intractable, without status migrainosus Disposition: HOME, SELF-CARE Condition: Improved Departure-Patient Inst. Decision time for Depature: 03:46 Referrals: OLGA ROE APRN (PCP) Primary Care Physician SIA FORTUNE DO (Family) Primary Care Physician Patient Instructions: Migraine Headache (DC) Add. Discharge Instructions: Rest in a cool dark room. Follow up with clinic for continued concerns. Continue on your regular medicines. All discharge instructions reviewed with patient and/or family. Voiced unders tanding. Work/School Note: Work Release Form Date Seen in the Emergency Department: May 10, 2020 Return to Work: May 11, 2020 Restrictions: No Restrictions WILLARD MISHRA MD May 10, 2020 02:44
[2020-05-10 03:59] VITALS: BP 119/72
== END 2020-05-10 03:59 | disposition home or self-care (01) ==
LOC: EDUNIT# 02:14 → ER FS 02:15
DX: G43.909 Migraine, unspecified, not intractable, without status migrainosus (principal); J45.909 Unspecified asthma, uncomplicated; F17.210 Nicotine dependence, cigarettes, uncomplicated; Z88.5 Allergy status to narcotic agent; Z88.6 Allergy status to analgesic agent; Z88.8 Allergy status to other drugs, medicaments and biological substances; Z79.51 Long term (current) use of inhaled steroids; Z82.61 Family history of arthritis; Z83.3 Family history of diabetes mellitus; Z82.49 Family history of ischemic heart disease and other diseases of the circulatory system

== ENCOUNTER 2020-09-15 13:42 | Emergency (ER) | payer MEDICAID ==
[~2020-09-15] VITALS: Ht 180.3 cm; Wt 113.4 kg
[~2020-09-15 13:42] MED LIST changes: +PS30T PO; -PSEU30TA35 PO
[2020-09-15 13:46] VITALS: BP 144/93
--- NOTE | 2020-09-15 13:55 | ED Upper Extremity ---
General Chief Complaint: Upper Extremity Stated Complaint: RT SHOULDER INJ Source: patient Exam Limitations: no limitations History of Present Illness Date Seen by Provider: Sep 15, 2020 Time Seen by Provider: 13:50 Initial Comments 29-year-old female presents with right shoulder pain. Patient reports she did a lot of moving heavy lifting the steps this morning and now has pain with movement in the right shoulder area. She has full range of motion, no weakness in any range. However she does have pain especially on upper and lateral aspects. She denies any fall or trauma to the area. No other systemic complaints. Allergies and Home Medications Allergies Coded Allergies: hydrocodone (Verified Allergy, Intermediate, MIGRAINES, 09/15/18) diphenhydramine (Verified Allergy, Mild, HIVES, 09/15/18) acetaminophen (Verified Adverse Reaction, Intermediate, MIGRAINES, 09/22/18) Home Medications Albuterol Sulfate 1 Puff Puff, 2 PUFF IH Q4H, (Reported) 1 PUFF = 90 MCG Fluticasone/Salmeterol 1 Each Blst.w.dev, 1 EACH IH BID Prescribed by: SIA FORTUNE on 09/24/18 0911 Guaifenesin 600 Mg Tab.er.12h, 600 MG PO BID Prescribed by: SIA FORTUNE on 09/23/18 1050 Ibuprofen 600 Mg Tablet, 600 MG PO Q6H Prescribed by: SIA FORTUNE on 09/23/18 1050 Naproxen 500 Mg Tablet, 500 MG PO Q12H PRN for pain Prescribed by: WILLARD MISHRA on 10/02/19 0503 Nystatin/Triamcinolone 15 Gm Cr, 15 GM TP BID apply bid to rash below the incision (do not apply to incision) Prescribed by: SIA FORTUNE on 09/24/18 0829 Pseudoephedrine HCl 30 Mg Tablet, 30 MG PO Q6H PRN for CONGESTION Prescribed by: SIA FORTUNE on 09/23/18 1050 [Oxycodone Hcl] 5 MG TAB, 5 MG PO Q6H PRN for PAIN-SEVERE 1-2 po q 6 hrs prn Prescribed by: SIA FORTUNE on 09/23/18 1050 Patient Home Medication List Home Medication List Reviewed: Yes Review of Systems Constitutional: No chills, No fever EENTM: no symptoms reported Respiratory: no symptoms reported Cardiovascular: no symptoms reported Gastrointestinal: no symptoms reported Genitourinary: no symptoms reported Musculoskeletal: see HPI Skin: no symptoms reported Psychiatric/Neurological: No Symptoms Reported Past Ljmjdje-Behier-Nthswn Hx Past Med/Social Hx: Reviewed Nursing Past Med/Soc Hx Patient Social History Type Used: Cigarettes 2nd Hand Smoke Exposure: Yes Recent Hopitalizations: Yes () Immunizations Up To Date Tetanus Booster (TDap): Less than 5yrs Date of Influenza Vaccine: May 31, 2018 Seasonal Allergies Seasonal Allergies: Yes Past Medical History Surgeries: Yes Section Respiratory: Yes Asthma Currently Using CPAP: No Currently Using BIPAP: No Cardiac: No Neurological: Yes Headaches /Migraines Reproductive Disorders: No Female Reproductive Disorders: Denies Sexually Transmitted Disease: Yes (HX PID) HIV/AIDS: No Genitourinary: Yes UTI-Chronic Gastrointestinal: Yes Gastroesophageal Reflux Musculoskeletal: No Endocrine: No HEENT: Yes (GLASSES/CONTACTS) Loss of Vision: Bilateral Hearing Impairment: Denies Cancer: No Psychosocial: No Integumentary: Yes Eczema Blood Disorders: No Adverse Reaction/Blood Tranf: No (N/A) Family Medical History Arthritis 19 FATHER Asthma 19 FATHER Cardiovascular disease 19 FATHER Completed stroke 19 FATHER (2 STROKES) Diabetes mellitus 19 FATHER Headache disorder 19 MOTHER Hypercholesterolemia 19 FATHER Hypertension 19 FATHER Myocardial infarction 19 FATHER Respiratory disorder Physical Exam Vital Signs Capillary Refill : Height, Weight, BMI Height: 5'11.00" Weight: 240lbs. 0.0oz. 108.723970wk; 34.00 BMI Method:Stated General Appearance: WD/WN HEENT: PERRL/EOMI Neck: full range of motion, supple Cardiovascular: normal peripheral pulses, regular rate, rhythm, no edema Respiratory: lungs clear, normal breath sounds Gastrointestinal: non tender, soft Back: normal inspection Shoulder: normal ROM (No deficit in complete testing of rotator cuff), soft tissue tenderness Elbow/Forearm: no evidence of injury, normal ROM Wrist: Yes normal inspection, Yes normal ROM Hand: normal ROM Departure Impression Primary Impression: Acute myofascial strain Additional Impression: Shoulder pain Qualified Codes: M25.511 - Pain in right shoulder Disposition: 01 HOME, SELF-CARE Condition: Stable Departure-Patient Inst. Referrals: OLGA ROE APRN (PCP) Primary Care Physician SIA FORTUNE DO (Family) Primary Care Physician Patient Instructions: Muscle Strain (DC), Tendonitis (DC), Shoulder Pain (DC) Add. Discharge Instructions: Follow-up with your primary care provider in 10 days if not improving All discharge instructions reviewed with patient and/or family. Voiced understanding. Scripts Naproxen (Naprosyn) 500 Mg Tablet 500 MG PO BID, #30 TAB 0 Refills Prov: DINAH DENNIS DO 09/15/20 Cyclobenzaprine HCl (Cyclobenzaprine HCl) 10 Mg Tablet 10 MG PO Q8H PRN for SPASMS, #15 TAB 0 Refills Prov: DINAH DENNIS DO 09/15/20 DINAH DENNIS DO Sep 15, 2020 13:55
[2020-09-15] MEDS ORDERED: NAPR-1071 PO (13:57)
[2020-09-15] MEDS ORDERED: CYCL10TA9 PO (13:57)
== END 2020-09-15 14:10 | disposition home or self-care (01) ==
LOC: EDUNIT# 13:42 → ER FS 13:44
DX: S46.911A Strain of unspecified muscle, fascia and tendon at shoulder and upper arm level, right arm, initial encounter (principal); J45.909 Unspecified asthma, uncomplicated; Z88.5 Allergy status to narcotic agent; Z88.6 Allergy status to analgesic agent; Z88.8 Allergy status to other drugs, medicaments and biological substances; Z82.49 Family history of ischemic heart disease and other diseases of the circulatory system; Z82.61 Family history of arthritis; Z83.3 Family history of diabetes mellitus; Z77.22 Contact with and (suspected) exposure to environmental tobacco smoke (acute) (chronic); X50.0XXA Overexertion from strenuous movement or load, initial encounter
CPT/HCPCS: 99282

== ENCOUNTER 2021-01-12 12:16 | Emergency (ER) | payer MEDICAID ==
[~2021-01-12] VITALS: Ht 180.3 cm; Wt 130.2 kg
[~2021-01-12 12:16] MED LIST changes: +CYCL10TA9 PO; +NAPR-1071 PO
[2021-01-12 12:25] VITALS: BP 150/84
--- NOTE | 2021-01-12 12:26 | ED Headache ---
General Chief Complaint: Head/Cervical Problems Stated Complaint: HEADACHE | VOMITING History of Present Illness Date Seen by Provider: January 12, 2021 Time Seen by Provider: 12:25 Initial Comments 30-year-old with past medical history significant for chronic migraines presents with a migraine for the past 2 days. She is only taking Excedrin Migraine without any relief. Does not take anything prophylactically and has not recently seen her doctor. No change in headache frequency, severity or pattern. She typically has a headache 2-3 times per week with associated nausea and photophobia. Allergies and Home Medications Allergies Coded Allergies: hydrocodone (Verified Allergy, Intermediate, MIGRAINES, 09/15/18) diphenhydramine (Verified Allergy, Mild, HIVES, 09/15/18) acetaminophen (Verified Adverse Reaction, Intermediate, MIGRAINES, 09/22/18) Home Medications Albuterol Sulfate 1 Puff Puff, 2 PUFF IH Q4H, (Reported) 1 PUFF = 90 MCG Cyclobenzaprine HCl 10 Mg Tablet, 10 MG PO Q8H PRN for SPASMS Prescribed by: DINAH DENNIS on 09/15/20 1357 Fluticasone/Salmeterol 1 Each Blst.w.dev, 1 EACH IH BID Prescribed by: SIA FORTUNE on 09/24/18 0911 Guaifenesin 600 Mg Tab.er.12h, 600 MG PO BID Prescribed by: SIA FORTUNE on 09/23/18 1050 Ibuprofen 600 Mg Tablet, 600 MG PO Q6H Prescribed by: SIA FORTUNE on 09/23/18 1050 Naproxen 500 Mg Tablet, 500 MG PO Q12H PRN for pain Prescribed by: WILLARD MISHRA on 10/02/19 0503 Naproxen 500 Mg Tablet, 500 MG PO BID Prescribed by: DINAH DENNIS on 09/15/20 1357 Nystatin/Triamcinolone 15 Gm Cr, 15 GM TP BID apply bid to rash below the incision (do not apply to incision) Prescribed by: SIA FOTRUNE on 09/24/18 0829 Pseudoephedrine HCl 30 Mg Tablet, 30 MG PO Q6H PRN for CONGESTION Prescribed by: SIA FORTUNE on 09/23/18 1050 [Oxycodone Hcl] 5 MG TAB, 5 MG PO Q6H PRN for PAIN-SEVERE 1-2 po q 6 hrs prn Prescribed by: SIA FORTUNE on 09/23/18 1050 Patient Home Medication List Home Medication List Reviewed: Yes Review of Systems Review of Systems Constitutional: No chills, No fever; malaise; No weakness Eyes: Denies Blindness, Denies Blurred Vision; Photophobia Ears, Nose, Mouth, Throat: no symptoms reported Respiratory: no symptoms reported Cardiovascular: no symptoms reported Gastrointestinal: No abdominal pain; nausea, vomiting Musculoskeletal: No back pain, No neck pain Past Rlxkkqq-Dpbxwa-Ntragm Hx Past Med/Social Hx: Reviewed Nursing Past Med/Soc Hx Patient Social History Alcohol Use: Denies Use Smoking Status: Current Everyday Smoker Type Used: Cigarettes 2nd Hand Smoke Exposure: Yes Recent Hopitalizations: No Immunizations Up To Date Tetanus Booster (TDap): Less than 5yrs Date of Influenza Vaccine: May 31, 2018 Seasonal Allergies Seasonal Allergies: Yes Past Medical History Surgeries: Yes Section Respiratory: Yes Asthma Currently Using CPAP: No Currently Using BIPAP: No Cardiac: No Neurological: Yes Headaches /Migraines Reproductive Disorders: No Female Reproductive Disorders: Denies Sexually Transmitted Disease: Yes (HX PID) HIV/AIDS: No Genitourinary: Yes UTI-Chronic Gastrointestinal: Yes Gastroesophageal Reflux Musculoskeletal: No Endocrine: No HEENT: Yes (GLASSES/CONTACTS) Loss of Vision: Bilateral Hearing Impairment: Denies Cancer: No Psychosocial: No Integumentary: Yes Eczema Blood Disorders: No Adverse Reaction/Blood Tranf: No (N/A) Family Medical History Arthritis 19 FATHER Asthma 19 FATHER Cardiovascular disease 19 FATHER Completed stroke 19 FATHER (2 STROKES) Diabetes mellitus 19 FATHER Headache disorder 19 MOTHER Hypercholesterolemia 19 FATHER Hypertension 19 FATHER Myocardial infarction 19 FATHER Respiratory disorder Physical Exam Vital Signs Vital Signs - First Documented 01/12/21 12:25 Temp 37.2 Pulse 77 Resp 18 B/P (MAP) 150/84 (106) Pulse Ox 98 Capillary Refill : Height, Weight, BMI Height: 5'11.00" Weight: 240lbs. 0.0oz. 108.210498yg; 34.00 BMI Method:Stated General Appearance: WD/WN, no apparent distress HEENT: PERRL/EOMI, normal ENT inspection Psychiatric: alert, oriented x 3 Crainal Nerves: normal hearing, normal speech, PERRL Coordination/Gait: normal finger to nose, normal gait Motor/Sensory: no motor deficit, no sensory deficit, no pronator drift Skin: normal color, warm/dry Progress/Results/Core Measures Results/Orders My Orders Orders - KAREEM SOLANO DO Ketorolac Injection (Toradol Injection) (01/12/21 12:30) Promethazine Injection (Phenergan Injec (01/12/21 12:30) Medications Given in ED Current Medications Medications Dose Ordered Sig/Remi Route Start Time Stop Time Status Last Admin Dose Admin Ketorolac Tromethamine 60 mg ONCE ONCE IM 01/12/21 12:30 01/12/21 12:31 DC 01/12/21 12:33 60 MG Promethazine HCl 25 mg ONCE ONCE IM/IV 01/12/21 12:30 01/12/21 12:31 DC 01/12/21 12:32 25 MG Vital Signs/I&O 01/12/21 12:25 Temp 37.2 Pulse 77 Resp 18 B/P (MAP) 150/84 (106) Pulse Ox 98 Departure Impression Primary Impression: Migraine Qualified Codes: G43.909 - Migraine, unspecified, not intractable, without status migrainosus Disposition: HOME, SELF-CARE Condition: Improved Departure-Patient Inst. Referrals: OLGA ROE APRN (PCP) Primary Care Physician SIA FORTUNE DO (Family) Primary Care Physician Add. Discharge Instructions: See your PCP in 1 week for re-evaluation and to discuss prevention of your headaches All discharge instructions reviewed with patient and/or family. Voiced understanding. KAREEM SOLANO DO January 12, 2021 12:26
[2021-01-12] MEDS: PROMETHAZINE INJ 25 MG/ML (PHENERGAN) AMP IM/IV ONE (12:32)
[2021-01-12] MEDS: KETOROLAC 60 MG/2 ML VIAL IM ONE (12:33)
== END 2021-01-12 12:51 | disposition home or self-care (01) ==
LOC: EDUNIT# 12:16 → ER FS 12:17
DX: G43.809 Other migraine, not intractable, without status migrainosus (principal); J45.909 Unspecified asthma, uncomplicated; F17.210 Nicotine dependence, cigarettes, uncomplicated; Z79.51 Long term (current) use of inhaled steroids; Z79.899 Other long term (current) drug therapy; Z88.5 Allergy status to narcotic agent; Z88.6 Allergy status to analgesic agent
CPT/HCPCS: 99283

== ENCOUNTER 2021-03-01 15:00 | Emergency (ER) | payer MEDICAID ==
[~2021-03-01] VITALS: Ht 177 cm; Wt 126.0 kg
--- NOTE | 2021-03-01 15:28 | ED General ---
General Chief Complaint: General Problems/Pain Stated Complaint: LOW OXYGEN Nursing Triage Note: PT REPORTS JUST KNOWS HER OXYGEN IS LOW BC SHE GOT REALLY TIRED WHILE AT WORK. STATS 98% UPON ARRIVAL. Source of Information: Patient History of Present Illness Date Seen by Provider: Mar 01, 2021 Time Seen by Provider: 15:21 Initial Comments 30-year-old female presenting from work due to concerns about low oxygen level. She states that she has a history of asthma and just before Covid hit she was told that she was getting low oxygen levels. She gets fatigued and tired happens and she had an episode of that today at work. She had tried using her inhaler because usually that will help her symptoms around. However when she continued to feel fatigued and sleepy at work she came to the ED to be evaluated. She was concerned that maybe her oxygen level was low. She denies any fever, chills, chest pain, abdominal pain, urinary pain. She has some wheezing and cough but it is no worse than usual. Associated Systoms: No Chest Pain; Cough; No Diaphoresis, No Fever/Chills, No Headaches, No Loss of Appetite, No Malaise, No Nausea/Vomiting, No Rash, No Seizure, No Shortness of Air, No Syncope, No Weakness; Other (Fatigue and sleepiness) Allergies and Home Medications Allergies Coded Allergies: hydrocodone (Verified Allergy, Intermediate, MIGRAINES, 09/15/18) diphenhydramine (Verified Allergy, Mild, HIVES, 09/15/18) acetaminophen (Verified Adverse Reaction, Intermediate, MIGRAINES, 09/22/18) Home Medications Albuterol Sulfate 1 Puff Puff, 2 PUFF IH Q4H, (Reported) 1 PUFF = 90 MCG Cyclobenzaprine HCl 10 Mg Tablet, 10 MG PO Q8H PRN for SPASMS Prescribed by: DINAH DENNIS on 09/15/20 1357 Fluticasone/Salmeterol 1 Each Blst.w.dev, 1 EACH IH BID Prescribed by: SIA FORTUNE on 09/24/18 0911 Guaifenesin 600 Mg Tab.er.12h, 600 MG PO BID Prescribed by: SIA FORTUNE on 09/23/18 1050 Ibuprofen 600 Mg Tablet, 600 MG PO Q6H Prescribed by: SIA FORTUNE on 09/23/18 1050 Naproxen 500 Mg Tablet, 500 MG PO Q12H PRN for pain Prescribed by: WILLARD MISHRA on 10/02/19 0503 Naproxen 500 Mg Tablet, 500 MG PO BID Prescribed by: DINAH DENNIS on 09/15/20 1357 Nystatin/Triamcinolone 15 Gm Cr, 15 GM TP BID apply bid to rash below the incision (do not apply to incision) Prescribed by: SIA FORTUNE on 09/24/18 0829 Pseudoephedrine HCl 30 Mg Tablet, 30 MG PO Q6H PRN for CONGESTION Prescribed by: SIA FORTUNE on 09/23/18 1050 [Oxycodone Hcl] 5 MG TAB, 5 MG PO Q6H PRN for PAIN-SEVERE 1-2 po q 6 hrs prn Prescribed by: SIA FORTUNE on 09/23/18 1050 Patient Home Medication List Home Medication List Reviewed: Yes Review of Systems Review of Systems Constitutional: see HPI EENTM: no symptoms reported Respiratory: see HPI Cardiovascular: no symptoms reported Gastrointestinal: no symptoms reported Genitourinary: no symptoms reported Musculoskeletal: no symptoms reported Skin: no symptoms reported Psychiatric/Neurological: See HPI Past Hyhwdua-Ylwujf-Ntitrw Hx Patient Social History Tobacco Use?: No Use of E-Cig and/or Vaping dev: No Substance use?: No Alcohol Use?: No Immunizations Up To Date Tetanus Booster (TDap): Less than 5yrs Seasonal Allergies Seasonal Allergies: Yes Past Medical History Surgeries: Yes Section Respiratory: Yes Asthma Currently Using CPAP: No Currently Using BIPAP: No Cardiac: No Neurological: Yes Headaches /Migraines Reproductive Disorders: No Female Reproductive Disorders: Denies Sexually Transmitted Disease: Yes (HX PID) HIV/AIDS: No Genitourinary: Yes UTI-Chronic Gastrointestinal: Yes Gastroesophageal Reflux Musculoskeletal: No Endocrine: No HEENT: Yes (GLASSES/CONTACTS) Loss of Vision: Bilateral Hearing Impairment: Denies Cancer: No Psychosocial: No Integumentary: Yes Eczema Blood Disorders: No Adverse Reaction/Blood Tranf: No (N/A) Family Medical History Arthritis 19 FATHER Asthma 19 FATHER Cardiovascular disease 19 FATHER Completed stroke 19 FATHER (2 STROKES) Diabetes mellitus 19 FATHER Headache disorder 19 MOTHER Hypercholesterolemia 19 FATHER Hypertension 19 FATHER Myocardial infarction 19 FATHER Respiratory disorder Physical Exam Vital Signs Vital Signs - First Documented 03/01/21 15:06 Temp 36.9 Pulse 94 Resp 20 B/P (MAP) 119/72 (88) Pulse Ox 98 O2 Delivery Room Air Capillary Refill : Less Than 3 Seconds Height, Weight, BMI Height: 5'11.00" Weight: 240lbs. 0.0oz. 108.793334lo; 40.00 BMI Method:Stated General Appearance: No Apparent Distress, WD/WN HEENT: PERRL/EOMI, Pharynx Normal Neck: Full Range of Motion, Normal Inspection, Non Tender, Supple Respiratory: Chest Non Tender, No Accessory Muscle Use, No Respiratory Distress, Wheezing Cardiovascular: Regular Rate, Rhythm, Normal Peripheral Pulses Gastrointestinal: Normal Bowel Sounds, No Pulsatile Mass, Non Tender, Soft Rectal: Deferred Extremity: Normal Capillary Refill, Normal Inspection, No Pedal Edema Neurologic/Psychiatric: Alert, Oriented x3, stacker straightener II-XII Norm as Tested Skin: Normal Color, Warm/Dry Progress/Results/Core Measures Suspected Sepsis SIRS Temperature: Pulse: 94 Respiratory Rate: 20 Blood Pressure 119 /72 Mean: 88 Results/Orders My Orders Orders - WILLARD MISHRA MD Albuterol/Ipra Inhalation Soln (Duoneb I (03/01/21 15:34) Svn Small Volume Nebulizer (03/01/21 15:34) Vital Signs/I&O 03/01/21 03/01/21 15:06 16:19 Temp 36.9 36.9 Pulse 94 90 Resp 20 16 B/P (MAP) 119/72 (88) 148/72 Pulse Ox 98 98 O2 Delivery Room Air Room Air Capillary Refill : Less Than 3 Seconds Blood Pressure Mean: 88 Progress Note #1: Progress Note Oxygen saturation is 98% on room air when she arrived. Because she does have extensive wheezing will try giving a nebulizer treatment to see if that helps. Progress Note #2: Progress Note Patient reports she has some improvement in her symptoms after doing the breathing treatment. Will send a spacer with her to use with her inhaler at home. Counseled on use of the spacer. Counseled on follow-up and return precautions. Departure Impression Primary Impression: Fatigue Qualified Codes: R53.83 - Other fatigue Additional Impression: Asthma Qualified Codes: J45.40 - Moderate persistent asthma, uncomplicated Disposition: 01 HOME, SELF-CARE Condition: Improved Departure-Patient Inst. Decision time for Depature: 16:23 Referrals: OLGA ROE APRN (PCP/Family) Primary Care Physician Patient Instructions: How to Use a Metered Dose Inhaler ED, Fatigue ED, How to Use a Spacer Add. Discharge Instructions: Use spacer with your inhaler to help get more medicine to your lungs. Hopefully when you use your rescue inhaler this will help when you feel fatigued and run down with asthma possibly causing low oxygen for you. Follow up with clinic for continued care and to see if you can get in with Pulmonology for further care/treatment for your asthma All discharge instructions reviewed with patient and/or family. Voiced understanding. Work/School Note: Work Release Form Date Seen in the Emergency Department: Mar 01, 2021 Return to Work: Mar 01, 2021 Restrictions: No Restrictions WILLARD MISHRA MD Mar 01, 2021 15:28
[2021-03-01] MEDS ORDERED: RT-ALBUTEROL/IPRATROPIUM 3 ML (DUONEB) VIAL INH STA (15:34)
[2021-03-01 16:19] VITALS: BP 148/72
== END 2021-03-01 16:26 | disposition home or self-care (01) ==
LOC: EDUNIT# 15:00 → ER FS 15:01
DX: J45.909 Unspecified asthma, uncomplicated (principal); R53.83 Other fatigue; Z79.51 Long term (current) use of inhaled steroids
CPT/HCPCS: 99281

== ENCOUNTER 2022-04-24 02:01 | Emergency (ER) | payer MEDICAID ==
[~2022-04-24] VITALS: Ht 180 cm; Wt 104.6 kg
[~2022-04-24 02:01] MED LIST changes: +CYCL10TA25 PO; -CYCL10TA9 PO; -NSTR15C TP; +NYST15CR36 TP
--- NOTE | 2022-04-24 02:25 | ED General ---
General Chief Complaint: Head/Cervical Problems Stated Complaint: HEADACHE Nursing Triage Note: Pt c/o headache since yesterday but reports n/v became worse at midnight. Hx of migraines and reports no relief from Excedrin or Imitrex at home. Denies head injury or trauma. Source of Information: Patient Exam Limitations: No Limitations History of Present Illness Date Seen by Provider: Apr 24, 2022 Time Seen by Provider: 02:00 Initial Comments Patient is a 31-year-old female with history of recurrent migraine headaches who presents with typical migraine headache starting approximately 18 hours ago. Patient headache is described as throbbing and retro-orbital is rated moderate to severe. Pain is associated with nausea and vomiting. No change of vision, extremity weakness or loss of sensation. No chest pain palpitations shortness of breath or abdominal pain. No other acute symptoms or complaints. Timing/Duration: 12-24 Hours Severity: Moderate Modifying Factors: improves with Other Associated Systoms: Other Allergies and Home Medications Allergies Coded Allergies: hydrocodone (Verified Allergy, Intermediate, MIGRAINES, 09/15/18) diphenhydramine (Verified Allergy, Mild, HIVES, 09/15/18) acetaminophen (Verified Adverse Reaction, Intermediate, MIGRAINES, 09/22/18) Patient Home Medication List Home Medication List Reviewed: Yes Albuterol Sulfate (Proair Hfa) 1 Puff Puff, 2 PUFF IH Q4H, (Reported) Entered as Reported by: HIRAM LAY on 09/22/18 0632 Cyclobenzaprine HCl (Cyclobenzaprine HCl) 10 Mg Tablet, 10 MG PO Q8H PRN for SPASMS Prescribed by: DINAH DENNIS on 09/15/20 1357 Fluticasone/Salmeterol (Advair 250-50 Diskus) 1 Each Blst.w.dev, 1 EACH IH BID Prescribed by: SIA FORTUNE on 09/24/18 0911 Guaifenesin (Mucinex) 600 Mg Tab.er.12h, 600 MG PO BID Prescribed by: SIA FORTUNE on 09/23/18 1050 Ibuprofen (Ibu) 600 Mg Tablet, 600 MG PO Q6H Prescribed by: SIA FORTUNE on 09/23/18 1050 Naproxen (Naproxen) 500 Mg Tablet, 500 MG PO Q12H PRN for pain Prescribed by: WILLARD MISHRA on 10/02/19 0503 Naproxen (Naprosyn) 500 Mg Tablet, 500 MG PO BID Prescribed by: DINAH DENNIS on 09/15/20 1357 Nystatin/Triamcinolone (Nystatin-Triamcinolone Cream) 15 Gm Cr, 15 GM TP BID Prescribed by: SIA FORTUNE on 09/24/18 0829 Comb No.42/Folic Acid (Prena1 Chew Tablet) 1.4 Mg Tab.ch.bph, 1.4 MG PO, (Reported) Entered as Reported by: BONI TSANG on 03/09/18 1201 Pseudoephedrine HCl (Sudogest) 30 Mg Tablet, 30 MG PO Q6H PRN for CONGESTION Prescribed by: SIA FORTUNE on 09/23/18 1050 [Oxycodone Hcl] 5 MG TAB, 5 MG PO Q6H PRN for PAIN-SEVERE Prescribed by: SIA FORTUNE on 09/23/18 1050 Review of Systems Review of Systems Constitutional: see HPI EENTM: see HPI Respiratory: see HPI Cardiovascular: see HPI Gastrointestinal: see HPI Genitourinary: see HPI : No Musculoskeletal: see HPI Skin: see HPI Psychiatric/Neurological: See HPI Hematologic/Lymphatic: See HPI Immunological/Allergic: see HPI All Other Systems Reviewed Negative Unless Noted: No Past Yljelru-Yightt-Evbwno Hx Patient Social History Tobacco Use?: Yes Tobacco type used: Cigarettes Smoking Status: Current Everyday Smoker Use of E-Cig and/or Vaping dev: No Substance use?: No Alcohol Use?: No Pt feels they are or have been: No Immunizations Up To Date Tetanus Booster (TDap): Less than 5yrs First/Initial COVID19 Vaccinat: denies Seasonal Allergies Seasonal Allergies: Yes Past Medical History Surgeries: Yes Section Respiratory: Yes Asthma Currently Using CPAP: No Currently Using BIPAP: No Cardiac: No Neurological: Yes Headaches /Migraines Reproductive Disorders: No Female Reproductive Disorders: Denies Sexually Transmitted Disease: Yes (HX PID) HIV/AIDS: No Genitourinary: Yes UTI-Chronic Gastrointestinal: Yes Gastroesophageal Reflux Musculoskeletal: No Endocrine: No HEENT: Yes (GLASSES/CONTACTS) Loss of Vision: Bilateral Hearing Impairment: Denies Cancer: No Psychosocial: No Integumentary: Yes Eczema Blood Disorders: No Adverse Reaction/Blood Tranf: No (N/A) Family Medical History Arthritis 19 FATHER Asthma 19 FATHER Cardiovascular disease 19 FATHER Completed stroke 19 FATHER (2 STROKES) Diabetes mellitus 19 FATHER Headache disorder 19 MOTHER Hypercholesterolemia 19 FATHER Hypertension 19 FATHER Myocardial infarction 19 FATHER Respiratory disorder Physical Exam Vital Signs Vital Signs - First Documented 04/24/22 02:07 Temp 36.2 Pulse 71 Resp 18 B/P (MAP) 145/95 (112) Pulse Ox 99 O2 Delivery Room Air Capillary Refill : Less Than 3 Seconds Height, Weight, BMI Height: 5'11.00" Weight: 240lbs. 0.0oz. 108.229353kj; 32.00 BMI Method:Stated General Appearance: No Apparent Distress, WD/WN, Anxious Eyes: Bilateral Eye Normal Inspection, Bilateral Eye PERRL, Bilateral Eye EOMI HEENT: PERRL/EOMI, Normal ENT Inspection, Pharynx Normal, Moist Mucous Membranes Neck: Normal Inspection, Non Tender Respiratory: Lungs Clear, Normal Breath Sounds, No Accessory Muscle Use Gastrointestinal: Non Tender, Soft Back: Normal Inspection, No CVA Tenderness Neurologic/Psychiatric: Alert, Oriented x3, No Motor/Sensory Deficits, Normal Mood/Affect Skin: Normal Color Focused Exam Sepsis Stage: Ruled Out Progress/Results/Core Measures Suspected Sepsis SIRS Temperature: Pulse: 71 Respiratory Rate: 18 Blood Pressure 145 /95 Mean: 112 Results/Orders My Orders Orders - KIRA HAWKINS DO Prochlorperazine Injection (Compazine In (04/24/22 02:30) Ketorolac Injection (Toradol Injection) (04/24/22 02:30) Metoclopramide Injection (Reglan Injecti (04/24/22 02:30) Vital Signs/I&O 04/24/22 02:07 Temp 36.2 Pulse 71 Resp 18 B/P (MAP) 145/95 (112) Pulse Ox 99 O2 Delivery Room Air Capillary Refill : Less Than 3 Seconds Blood Pressure Mean: 112 Departure Communication (Admissions) Patient with typical migraine headache with nausea and vomiting. Migraine cocktail given with partial relief of symptoms. Patient resting comfortable with request to discharge home. Return precautions reviewed. Patient verbal izes understanding and agreement with discharge home. Impression Primary Impression: Migraine headache Additional Impression: Nausea and vomiting Disposition: 01 HOME, SELF-CARE Condition: Stable Departure-Patient Inst. Decision time for Depature: 02:25 Referrals: OLGA ROE APRN (PCP/Family) Primary Care Physician Patient Instructions: Nausea and Vomiting, Adult ED, Migraines (DC) Add. Discharge Instructions: You were evaluated in the emergency department nausea vomiting and headache consistent with migraine. Please go home and rest and take Excedrin Migraine OTC and Compazine Rx as needed if headache returns. Follow-up with your PCP for reevaluation if symptoms persist. Return to the ED if new or worsening symptoms All discharge instructions reviewed with patient and/or family. Voiced understanding. Scripts Prochlorperazine Maleate (Compazine) 10 Mg Tablet 10 MG PO Q8H, #10 TAB Prov: KIRA HAWKINS DO 04/24/22 KIRA HAWKINS DO Apr 24, 2022 02:25
[2022-04-24] MEDS ORDERED: PROC-1 PO (02:28)
[2022-04-24] MEDS ORDERED: KETOROLAC 60 MG/2 ML VIAL IM ONE (02:30)
[2022-04-24] MEDS ORDERED: METOCLOPRAMIDE INJ 10 MG/2 ML (REGLAN) IM ONE (02:30)
[2022-04-24] MEDS ORDERED: PROCHLORPERAZINE 10 MG/2ML INJ (COMPAZINE) IM ONE (02:30)
[2022-04-24 02:39] VITALS: BP 145/95
== END 2022-04-24 02:39 | disposition home or self-care (01) ==
LOC: EDUNIT# 02:01 → ER FS 02:03
DX: G43.901 Migraine, unspecified, not intractable, with status migrainosus (principal); F17.210 Nicotine dependence, cigarettes, uncomplicated; Z28.310 Unvaccinated for COVID-19
CPT/HCPCS: 99284

== ENCOUNTER 2022-06-08 05:34 | Emergency (ER) | payer MEDICAID ==
[~2022-06-08] VITALS: Ht 180 cm; Wt 110.0 kg
[~2022-06-08 05:34] MED LIST changes: +PROC-1 PO
--- NOTE | 2022-06-08 06:06 | ED GU-Female ---
General Chief Complaint: Abdominal/GI Problems Stated Complaint: LOWER ABD PAIN Nursing Triage Note: Patient states lower abdominal pain that started yesterday and has become progressively worse. History of Present Illness Date Seen by Provider: Jun 08, 2022 Time Seen by Provider: 05:50 Initial Comments 31 yr F with PMH of Asthma is here with c/o suprapubic pain which began yesterday morning. Pt states the pain is constant and does not radiate. Pt has been able to eat. Pt drinks about six 16 oz bottles of water a day, and she has been having increased urine frequency and foul smelling urine. Denies nausea, vomiting, flank pain, fever, chills, chest pain, SOB, cough, palpitations. Allergies and Home Medications Allergies Coded Allergies: hydrocodone (Verified Allergy, Intermediate, MIGRAINES, 09/15/18) diphenhydramine (Verified Allergy, Mild, HIVES, 09/15/18) acetaminophen (Verified Adverse Reaction, Intermediate, MIGRAINES, 09/22/18) Patient Home Medication List Home Medication List Reviewed: Yes Albuterol Sulfate (Proair Hfa) 1 Puff Puff, 2 PUFF IH Q4H, (Reported) Entered as Reported by: HIRAM LAY on 09/22/18 0632 Cyclobenzaprine HCl (Cyclobenzaprine HCl) 10 Mg Tablet, 10 MG PO Q8H PRN for SPASMS Prescribed by: DINAH DENNIS on 09/15/20 1357 Fluticasone/Salmeterol (Advair 250-50 Diskus) 1 Each Blst.w.dev, 1 EACH IH BID Prescribed by: SIA FORTUNE on 09/24/18 0911 Guaifenesin (Mucinex) 600 Mg Tab.er.12h, 600 MG PO BID Prescribed by: SIA FORTUNE on 09/23/18 1050 Ibuprofen (Ibu) 600 Mg Tablet, 600 MG PO Q6H Prescribed by: SIA FORTUNE on 09/23/18 1050 Naproxen (Naproxen) 500 Mg Tablet, 500 MG PO Q12H PRN for pain Prescribed by: WILLARD MISHRA on 10/02/19 0503 Naproxen (Naprosyn) 500 Mg Tablet, 500 MG PO BID Prescribed by: DINAH DENNIS on 09/15/20 1357 Nystatin/Triamcinolone (Nystatin-Triamcinolone Cream) 15 Gm Cr, 15 GM TP BID Prescribed by: SIA FORTUNE on 09/24/18 0829 Comb No.42/Folic Acid (Prena1 Chew Tablet) 1.4 Mg Tab.ch.bph, 1.4 MG PO, (Reported) Entered as Reported by: BONI TSANG on 03/09/18 1201 Prochlorperazine Maleate (Compazine) 10 Mg Tablet, 10 MG PO Q8H Prescribed by: KIRA HAWKINS on 04/24/22 0228 Pseudoephedrine HCl (Sudogest) 30 Mg Tablet, 30 MG PO Q6H PRN for CONGESTION Prescribed by: SIA FORTUNE on 09/23/18 1050 [Oxycodone Hcl] 5 MG TAB, 5 MG PO Q6H PRN for PAIN-SEVERE Prescribed by: SIA FORTUNE on 09/23/18 1050 Review of Systems Review of Systems Constitutional: no symptoms reported EENTM: no symptoms reported Respiratory: no symptoms reported Cardiovascular: no symptoms reported Gastrointestinal: other (suprapubic pain) Genitourinary: frequency Musculoskeletal: no symptoms reported Skin: no symptoms reported Psychiatric/Neurological: No Symptoms Reported Endocrine: No Symptoms Reported Hematologic/Lymphatic: No Symptoms Reported Past Sibuizf-Fojyer-Pdzwxn Hx Patient Social History Tobacco Use?: Yes Tobacco type used: Cigarettes Smoking Status: Current Everyday Smoker Substance use?: No Alcohol Use?: No Immunizations Up To Date Tetanus Booster (TDap): Less than 5yrs First/Initial COVID19 Vaccinat: denies Second COVID19 Vaccination Capo: denies Third COVID19 Vaccination Date: denies Seasonal Allergies Seasonal Allergies: Yes Past Medical History Surgeries: Yes Section Respiratory: Yes Asthma Currently Using CPAP: No Currently Using BIPAP: No Cardiac: No Neurological: Yes Headaches /Migraines Last Menstrual Period: May 09, 2022 Reproductive Disorders: No Female Reproductive Disorders: Denies Sexually Transmitted Disease: Yes (HX PID) HIV/AIDS: No Genitourinary: Yes UTI-Chronic Gastrointestinal: Yes Gastroesophageal Reflux Musculoskeletal: No Endocrine: No HEENT: Yes (GLASSES/CONTACTS) Loss of Vision: Bilateral Hearing Impairment: Denies Cancer: No Psychosocial: No Integumentary: Yes Eczema Blood Disorders: No Adverse Reaction/Blood Tranf: No (N/A) Family Medical History Arthritis 19 FATHER Asthma 19 FATHER Cardiovascular disease 19 FATHER Completed stroke 19 FATHER (2 STROKES) Diabetes mellitus 19 FATHER Headache disorder 19 MOTHER Hypercholesterolemia 19 FATHER Hypertension 19 FATHER Myocardial infarction 19 FATHER Respiratory disorder Physical Exam Vital Signs Vital Signs - First Documented 06/08/22 05:42 Temp 36.6 Pulse 120 Resp 18 B/P (MAP) 145/71 (95) Pulse Ox 94 O2 Delivery Room Air Capillary Refill : Less Than 3 Seconds Height, Weight, BMI Height: 5'11.00" Weight: 240lbs. 0.0oz. [id number]; 33.00 BMI Method:Stated General Appearance: WD/WN, mild distress HEENT: PERRL/EOMI Neck: full range of motion Cardiovascular: regular rate, rhythm, no edema Respiratory: chest non-tender, lungs clear, normal breath sounds Gastrointestinal: normal bowel sounds, soft, no organomegaly, tenderness (SUPRAPUBIC tenderness only) Pelvic: normal external exam Back: normal inspection, no CVA tenderness Extremities: normal range of motion Neurologic/Psychiatric: alert, normal mood/affect, oriented x 3 Skin: normal color, warm/dry Lymphatic: no adenopathy Progress/Results/Core Measures Suspected Sepsis SIRS Temperature: Pulse: 120 Respiratory Rate: 18 Laboratory Tests 06/08/22 05:52: White Blood Count 18.2H Blood Pressure 145 /71 Mean: 95 Laboratory Tests 06/08/22 05:52: Creatinine 0.65, Platelet Count 351, Total Bilirubin 0.5 Results/Orders Lab Results Laboratory Tests Test 06/08/22 05:43 06/08/22 05:52 Range/Units Urine Color YELLOW Urine Clarity CLEAR Urine pH 8.0 5-9 Urine Specific Bruno 1.020 1.016-1.022 Urine Protein NEGATIVE NEGATIVE Urine Glucose (UA) NEGATIVE NEGATIVE Urine Ketones NEGATIVE NEGATIVE Urine Nitrite POSITIVE H NEGATIVE Urine Bilirubin NEGATIVE NEGATIVE Urine Urobilinogen 0.2 < = 1.0 MG/DL Urine Leukocyte Esterase TRACE H NEGATIVE Urine RBC (Auto) TRACE-I H NEGATIVE Urine RBC NONE /HPF Urine WBC 5-10 H /HPF Urine Squamous Epithelial Cells 2-5 /HPF Urine Crystals NONE /LPF Urine Bacteria LARGE H /HPF Urine Casts NONE /LPF Urine Mucus NEGATIVE /LPF Urine Culture Indicated YES Urine Test NEGATIVE NEGATIVE Urine Opiates Screen NEGATIVE NEGATIVE Urine Oxycodone Screen NEGATIVE NEGATIVE Urine Methadone Screen NEGATIVE NEGATIVE Urine Propoxyphene Screen NEGATIVE NEGATIVE Urine Barbiturates Screen NEGATIVE NEGATIVE Ur Tricyclic Antidepressants Screen NEGATIVE NEGATIVE Urine Phencyclidine Screen NEGATIVE NEGATIVE Urine Amphetamines Screen NEGATIVE NEGATIVE Urine Methamphetamines Screen NEGATIVE NEGATIVE Urine Benzodiazepines Screen NEGATIVE NEGATIVE Urine Cocaine Screen NEGATIVE NEGATIVE Urine Cannabinoids Screen POSITIVE H NEGATIVE White Blood Count 18.2 H 4.3-11.0 10^3/uL Red Blood Count 4.34 3.80-5.11 10^6/uL Hemoglobin 13.7 11.5-16.0 g/dL Hematocrit 39 35-52 % Mean Corpuscular Volume 90 80-99 fL Mean Corpuscular Hemoglobin 32 25-34 pg Mean Corpuscular Hemoglobin Concent 35 32-36 g/dL Red Cell Distribution Width 14.6 H 10.0-14.5 % Platelet Count 351 130-400 10^3/uL Mean Platelet Volume 9.4 9.0-12.2 fL Immature Granulocyte % (Auto) 1 % Neutrophils (%) (Auto) 82 H 42-75 % Lymphocytes (%) (Auto) 12 12-44 % Monocytes (%) (Auto) 5 0-12 % Eosinophils (%) (Auto) 0 0-10 % Basophils (%) (Auto) 0 0-10 % Neutrophils # (Auto) 15.0 H 1.8-7.8 X 10^3 Lymphocytes # (Auto) 2.2 1.0-4.0 X 10^3 Monocytes # (Auto) 1.0 0.0-1.0 X 10^3 Eosinophils # (Auto) 0.0 0.0-0.3 10^3/uL Basophils # (Auto) 0.0 0.0-0.1 10^3/uL Sodium Level 132 L 135-145 MMOL/L Potassium Level 3.9 3.6-5.0 MMOL/L Chloride Level 98 98-107 MMOL/L Carbon Dioxide Level 21 21-32 MMOL/L Anion Gap 13 5-14 MMOL/L Blood Urea Nitrogen 6 L 7-18 MG/DL Creatinine 0.65 0.60-1.30 MG/DL Estimat Glomerular Filtration Rate 121 BUN/Creatinine Ratio 9 Glucose Level 121 H 70-105 MG/DL Calcium Level 9.3 8.5-10.1 MG/DL Corrected Calcium 8.5-10.1 MG/DL Total Bilirubin 0.5 0.1-1.0 MG/DL Aspartate Amino Transf (AST/SGOT) 11 5-34 U/L Alanine Aminotransferase (ALT/SGPT) 8 0-55 U/L Alkaline Phosphatase 106 40-136 U/L Total Protein 7.5 6.4-8.2 GM/DL Albumin 3.9 3.2-4.5 GM/DL Lipase 12 8-78 U/L Serum Alcohol < 10 <10 MG/DL My Orders Orders - GIGI SCHWARTZ MD Drug Screen Stat (Urine) (06/08/22 05:51) Hcg,Qualitative Urine (06/08/22 05:51) Ua Culture If Indicated (06/08/22 05:51) Alcohol (06/08/22 05:56) Cbc With Automated Diff (06/08/22 05:56) Comprehensive Metabolic Panel (06/08/22 05:56) Lipase (06/08/22 05:56) Ketorolac Injection (Toradol Injection) (06/08/22 06:15) Urine Culture (06/08/22 05:43) Ceftriaxone 1 Gm Pre-Mix (Rocephin 1 Gm (06/08/22 06:16) Manual Differential (06/08/22 05:52) Medications Given in ED Current Medications Medications Dose Ordered Sig/Remi Route Start Time Stop Time Status Last Admin Dose Admin Ketorolac Tromethamine 15 mg ONCE ONCE IVP 06/08/22 06:15 06/08/22 06:16 DC 06/08/22 06:30 15 MG Vital Signs/I&O 06/08/22 05:42 Temp 36.6 Pulse 120 Resp 18 B/P (MAP) 145/71 (95) Pulse Ox 94 O2 Delivery Room Air Capillary Refill : Less Than 3 Seconds Blood Pressure Mean: 95 Progress Note : Progress Note 1. SUPRAPUBIC PAIN/ ACUTE CYSTITIS/ MARIJUANA ABUSE: - UA: Positive for leukocyte esterase, nitrites, WBCs, RBCs, and bacteria - UDS: Positive for marijuana - CBC/ CMP: WBC is 18, CMP unremarkable - Lipase negative - Ceftriaxone 1gm iv and Toradol 15mg iv given in ER - Cefpodoxime 100mg bid got 7 days prescription, Ibuprofen as needed for pain, advised adequate hydration. - Follow up with PCP in 3 to 7 days -The patient was seen in the ED, and treated appropriately to presentation at a specific point in time. Patient is informed that there is a possibility that disease and illness can evolve and change in acuity rapidly or slowly after patient is discharged from the ER. Precautionary advice given to the patient for immediate return to ER if symptoms worsen or do not resolve, and to seek emergency care sooner rather than later. Pt also advised on the importance of PCP follow up and compliance with management and follow up plan with PCP and/or specialist, as this is part of the management plan. Pt verbally expressed understanding. Departure Impression Primary Impression: Acute cystitis with hematuria Disposition: HOME, SELF-CARE Condition: Stable Departure-Patient Inst. Referrals: OLGA ROE APRN (PCP/Family) Primary Care Physician Patient Instructions: Acute Cystitis (DC) Add. Discharge Instructions: - Cefpodoxime 100mg bid got 7 days prescription, Ibuprofen as needed for pain, advised adequate hydration. - Follow up with PCP in 3 to 7 days All discharge instructions reviewed with patient and/or family. Voiced understanding. Scripts Cefpodoxime Proxetil (Cefpodoxime Proxetil) 100 Mg Tablet 100 MG PO BID for 7 Days, #14 TAB Prov: GIGI SCHWARTZ MD 06/08/22 GIGI SCHWARTZ MD Jun 08, 2022 06:06
[2022-06-08 06:08] LABS: BILIRUBIN,URINE NEGATIVE (NEGATIVE); CLARITY,URINE CLEAR; COLOR,URINE YELLOW; GLUCOSE, URINE (UA) NEGATIVE (NEGATIVE); KETONES,URINE NEGATIVE (NEGATIVE); LEUKOCYTE ESTERASE ,URINE TRACE (NEGATIVE); NITRITE,URINE POSITIVE (NEGATIVE); PROTEIN,URINE NEGATIVE (NEGATIVE)
[2022-06-08 06:13] LABS: BACTERIA,URINE LARGE /HPF
[2022-06-08 06:14] LABS: HCG,QUALITATIVE URINE NEGATIVE (NEGATIVE)
[2022-06-08] MEDS ORDERED: KETOROLAC 30 MG/ML VIAL IVP ONE (06:15)
[2022-06-08 06:16] LABS: HEMATOCRIT 39 % (35-52); HEMOGLOBIN 13.7 g/dL (11.5-16.0); MEAN CORPUSCULAR HEMOGLOBIN 32 pg (25-34); MEAN CORPUSCULAR HGB CONC 35 g/dL (32-36); MEAN CORPUSCULAR VOLUME 90 fL (80-99); MEAN PLATELET VOLUME 9.4 fL (9.0-12.2); NEUTROPHILS % (AUTO) 82 % (42-75); PLATELET COUNT 351 10^3/uL (130-400); WHITE BLOOD COUNT 18.2 10^3/uL (4.3-11.0)
[2022-06-08] MEDS ORDERED: cefTRIAXone 1 GM PRE-MIX 50 ML IV STA (06:16)
[2022-06-08 06:17] LABS: BASOPHILS % (AUTO) 0 % (0-10); EOSINOPHILS % (AUTO) 0 % (0-10); LYMPHOCYTES # (AUTO) 2.2 X 10^3 (1.0-4.0); LYMPHOCYTES % (AUTO) 12 % (12-44); MONOCYTES % (AUTO) 5 % (0-12)
[2022-06-08 06:19] LABS: AMPHETAMINE SCREEN, URINE NEGATIVE (NEGATIVE); BARBITURATE SCREEN URINE NEGATIVE (NEGATIVE); BENZODIAZEPINES SCREEN URINE NEGATIVE (NEGATIVE); CANNABINOID SCREEN, URINE POSITIVE (NEGATIVE); COCAINE SCREEN URINE NEGATIVE (NEGATIVE); METHADONE STAT NEGATIVE (NEGATIVE); OPIATE SCREEN URINE NEGATIVE (NEGATIVE); OXYCODONE STAT NEGATIVE (NEGATIVE); PROPOXYPHENE STAT NEGATIVE (NEGATIVE); TRICYCLIC ANTIDEPRESSANTS SCRE NEGATIVE (NEGATIVE)
[2022-06-08 06:26] LABS: ALANINE AMINOTRANSFERASE 8 U/L (0-55); ALBUMIN 3.9 GM/DL (3.2-4.5); ALKALINE PHOSPHATASE 106 U/L (40-136); BILIRUBIN,TOTAL 0.5 MG/DL (0.1-1.0); BUN/CREATININE RATIO 9; CALCIUM 9.3 MG/DL (8.5-10.1); CARBON DIOXIDE 21 MMOL/L (21-32); CHLORIDE 98 MMOL/L (98-107); CREATININE SERUM 0.65 MG/DL (0.60-1.30); GFR ESTIMATED 121; GLUCOSE 121 MG/DL (70-105); LIPASE 12 U/L (8-78); POTASSIUM 3.9 MMOL/L (3.6-5.0); SODIUM 132 MMOL/L (135-145); TOTAL PROTEIN 7.5 GM/DL (6.4-8.2)
[2022-06-08 06:44] LABS: LYMPHOCYTES % (MANUAL) 14 %; MONOCYTES % (MANUAL) 3 %; NEUTROPHILS % (MANUAL) 83 %
[2022-06-08] MEDS ORDERED: CEFP100T2 PO (06:48)
[2022-06-08 06:49] VITALS: BP 114/64
== END 2022-06-08 06:59 | disposition home or self-care (01) ==
LOC: EDUNIT# 05:34 → ER FS 05:38
DX: N30.01 Acute cystitis with hematuria (principal); F17.210 Nicotine dependence, cigarettes, uncomplicated; Z87.440 Personal history of urinary (tract) infections; Z28.310 Unvaccinated for COVID-19
CPT/HCPCS: 36415; 80053; 80306; 81000; 83690; 84703 ×2; 85007; 85027; 87077; 87088; 99284; G0480; 80320; 87186

== ENCOUNTER 2022-12-26 19:32 | Emergency (ER) | payer MEDICAID ==
[~2022-12-26] VITALS: Ht 180.3 cm; Wt 104.9 kg
[~2022-12-26 19:32] MED LIST changes: +ALBU8.5H6 IH; +CEFP100T2 PO; -RT-ALBUINH IH
[2022-12-26 19:39] VITALS: BP 156/92
[2022-12-26] MEDS ORDERED: ONDANSETRON 4 MG (ZOFRAN) ORAL DISSOLVE TAB PO STA (19:50)
[2022-12-26] MEDS ORDERED: PROCHLORPERAZINE 10 MG/2ML INJ (COMPAZINE) IM ONE (20:00)
[2022-12-26] MEDS ORDERED: KETOROLAC 15 MG/ML VIAL IM ONE (20:00)
--- NOTE | 2022-12-26 20:20 | ED Headache ---
General Chief Complaint: Head/Cervical Problems Stated Complaint: MIGRAINE Nursing Triage Note: Patient states that she began having a migraine earlier today. Patient has a history of migraine headaches and took all of her usual home medictations. Patient began to feel nauseated and came to the ER to seek treatment. 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 Source: patient, old records Exam Limitations: no limitations History of Present Illness Date Seen by Provider: December 26, 2022 Time Seen by Provider: 19:39 Initial Comments 30-year-old female with past medical history of chronic migraines coming in due to what she states is a migraine. Started earlier today, tried her usual Excedrin which did not help. Began getting worse and now she is feeling nauseated so she came to the ER. Her migraines typically get this bad every 3 months or so. She states this feels like a typical migraine for her, no vision changes, weakness, numbness, fever, neck stiffness, or any other concerns. They typically get this bad when she is about to menstruate, and she started menstruating today. Allergies and Home Medications Allergies Coded Allergies: hydrocodone (Verified Allergy, Intermediate, MIGRAINES, 09/15/18) diphenhydramine (Verified Allergy, Mild, HIVES, 09/15/18) acetaminophen (Verified Adverse Reaction, Intermediate, MIGRAINES, 09/22/18) Patient Home Medication List Home Medication List Reviewed: Yes Albuterol Sulfate (Ventolin Hfa) 1 Puff Puff, 2 PUFF IH Q4H, (Reported) Entered as Reported by: HIRAM LAY on 09/22/18 0632 Cefpodoxime Proxetil (Cefpodoxime Proxetil) 100 Mg Tablet, 100 MG PO BID Prescribed by: GIGI SCHWARTZ MD on 06/08/22 0648 Cyclobenzaprine HCl (Cyclobenzaprine HCl) 10 Mg Tablet, 10 MG PO Q8H PRN for SPASMS Prescribed by: DINAH DENNIS on 09/15/20 1357 Fluticasone/Salmeterol (Advair 250-50 Diskus) 1 Each Blst.w.dev, 1 EACH IH BID Prescribed by: SIA FORTUNE on 09/24/18 0911 Guaifenesin (Mucinex) 600 Mg Tab.er.12h, 600 MG PO BID Prescribed by: SIA FORTUNE on 09/23/18 1050 Ibuprofen (Ibu) 600 Mg Tablet, 600 MG PO Q6H Prescribed by: SIA FORTUNE on 09/23/18 1050 Naproxen (Naproxen) 500 Mg Tablet, 500 MG PO Q12H PRN for pain Prescribed by: WILLARD MISHRA on 10/02/19 0503 Naproxen (Naprosyn) 500 Mg Tablet, 500 MG PO BID Prescribed by: DINAH DENNIS on 09/15/20 1357 Nystatin/Triamcinolone (Nystatin-Triamcinolone Cream) 15 Gm Cr, 15 GM TP BID Prescribed by: SIA FORTUNE on 09/24/18 0829 Comb No.42/Folic Acid (Prena1 Chew Tablet) 1.4 Mg Tab.ch.bph, 1.4 MG PO, (Reported) Entered as Reported by: BONI TSANG on 03/09/18 1201 Prochlorperazine Maleate (Compazine) 10 Mg Tablet, 10 MG PO Q8H Prescribed by: KIRA HAWKINS on 04/24/22 0228 Pseudoephedrine HCl (Sudogest) 30 Mg Tablet, 30 MG PO Q6H PRN for CONGESTION Prescribed by: SIA FORTUNE on 09/23/18 1050 [Oxycodone Hcl] 5 MG TAB, 5 MG PO Q6H PRN for PAIN-SEVERE Prescribed by: SIA FORTUNE on 09/23/18 1050 Review of Systems Review of Systems Constitutional: No fever Eyes: No Symptoms Reported Ears, Nose, Mouth, Throat: no symptoms reported Respiratory: no symptoms reported Cardiovascular: no symptoms reported Gastrointestinal: see HPI Genitourinary: no symptoms reported Musculoskeletal: no symptoms reported Psychiatric/Neurological: See HPI Past Uudmarp-Apefke-Dwoxsg Hx Patient Social History Tobacco Use?: No Substance use?: No Alcohol Use?: No Pt feels they are or have been: No Immunizations Up To Date Tetanus Booster (TDap): Less than 5yrs First/Initial COVID19 Vaccinat: denies Second COVID19 Vaccination Capo: denies Third COVID19 Vaccination Date: denies Seasonal Allergies Seasonal Allergies: Yes Past Medical History Surgeries: Yes Section Respiratory: Yes Asthma Currently Using CPAP: No Currently Using BIPAP: No Cardiac: No Neurological: Yes Headaches /Migraines Reproductive Disorders: No Female Reproductive Disorders: Denies Sexually Transmitted Disease: Yes (HX PID) HIV/AIDS: No Genitourinary: Yes UTI-Chronic Gastrointestinal: Yes Gastroesophageal Reflux Musculoskeletal: No Endocrine: No HEENT: Yes (GLASSES/CONTACTS) Loss of Vision: Bilateral Hearing Impairment: Denies Cancer: No Psychosocial: No Integumentary: Yes Eczema Blood Disorders: No Adverse Reaction/Blood Tranf: No (N/A) Family Medical History Arthritis 19 FATHER Asthma 19 FATHER Cardiovascular disease 19 FATHER Completed stroke 19 FATHER (2 STROKES) Diabetes mellitus 19 FATHER Headache disorder 19 MOTHER Hypercholesterolemia 19 FATHER Hypertension 19 FATHER Myocardial infarction 19 FATHER Respiratory disorder Physical Exam Vital Signs Vital Signs - First Documented 12/26/22 19:39 Temp 35.5 Pulse 66 Resp 18 B/P (MAP) 156/92 (113) Pulse Ox 99 O2 Delivery Room Air Capillary Refill : Less Than 3 Seconds Height, Weight, BMI Height: 5'11.00" Weight: 240lbs. 0.0oz. [id number]; 32.00 BMI Method:Stated General Appearance: WD/WN, mild distress HEENT: PERRL/EOMI, normal ENT inspection, pharynx normal Neck: non-tender, full range of motion, supple, normal inspection, other (No meningismus) Cardiovascular: regular rate, rhythm, no edema, no murmur Respiratory: chest non-tender, lungs clear, normal breath sounds, no respiratory distress, no accessory muscle use Gastrointestinal: normal bowel sounds, non tender, soft; No distended, No guarding, No rebound Back: normal inspection, no CVA tenderness Extremities: normal range of motion, non-tender, normal inspection, no pedal edema, no calf tenderness, normal capillary refill Psychiatric: alert Crainal Nerves: normal hearing, normal speech, PERRL Coordination/Gait: normal finger to nose, normal gait Motor/Sensory: no motor deficit, no sensory deficit, no pronator drift Skin: normal color, warm/dry Progress/Results/Core Measures Results/Orders My Orders Orders - MALORIE VAUGHAN MD Ketorolac Injection (Toradol Injection) (12/26/22 20:00) Prochlorperazine Injection (Compazine In (12/26/22 20:00) Dexamethasone Oral Soln (Ed) (Decadron I (12/26/22 19:50) Ondansetron Oral Dissolve Tab (Zofran (12/26/22 19:50) Medications Given in ED Current Medications Medications Dose Ordered Sig/Remi Route Start Time Stop Time Status Last Admin Dose Admin Ketorolac Tromethamine 15 mg ONCE ONCE IM 12/26/22 20:00 12/26/22 20:01 DC 12/26/22 19:58 15 MG Prochlorperazine Edisylate 10 mg ONCE ONCE IM 12/26/22 20:00 12/26/22 20:01 DC 12/26/22 19:59 10 MG Vital Signs/I&O 12/26/22 19:39 Temp 35.5 Pulse 66 Resp 18 B/P (MAP) 156/92 (113) Pulse Ox 99 O2 Delivery Room Air Blood Pressure Mean: 113 Progress Progress Note : Progress Note 30-year-old female presenting for what she states is her typical migraine. ABCs were intact and vitals were stable on presentation. Physical exam reassuring including a normal comprehensive neuro exam. She has no red flags, and this is consistent with her prior episodes. CT imaging therefore not obtained. She has no fever or meningismus making meningitis unlikely as well. She was given IM Compazine as well as Toradol with some oral Zofran as well. Pain significantly improved on my reassessment. I believe she is otherwise stable for discharge with outpatient follow-up. She was sent home with strict return precautions. Departure Impression Primary Impression: Headache Qualified Codes: G44.209 - Tension-type headache, unspecified, not intractable Disposition: HOME, SELF-CARE Condition: Improved Departure-Patient Inst. Decision time for Depature: 20:40 Referrals: OLGA ROE APRN (PCP/Family) Primary Care Physician Patient Instructions: Headache, Adult ED Add. Discharge Instructions: Please follow-up with your regular doctor and potentially neurologist if these migraines become more frequent. Drink plenty of fluids, take ibuprofen and/or the Excedrin as needed. Scripts Prochlorperazine Maleate (Compazine) 10 Mg Tablet 10 MG PO Q6H PRN for MIGRAINE for 5 Days, #20 TAB Prov: MALORIE VAUGHAN MD 12/26/22 Work/School Note: Work Release Form Date Seen in the Emergency Department: December 26, 2022 Return to Work: December 27, 2022 Restrictions: No Restrictions MALORIE VAUGHAN MD December 26, 2022 20:20
[2022-12-26] MEDS ORDERED: PROC-1 PO (20:33)
== END 2022-12-26 20:34 | disposition home or self-care (01) ==
LOC: EDUNIT# 19:32 → ER FS 19:34
DX: R51.9 Headache, unspecified (principal); Z86.69 Personal history of other diseases of the nervous system and sense organs; Z28.310 Unvaccinated for COVID-19
CPT/HCPCS: 99284